=== PATIENT | female | born 1945 | race Caucasian/White ===

== ENCOUNTER → 2020-01-08 09:19 | Outpatient (BNVA) | payer MEDICARE, OTHER, SELFPAY | PROVIDERS: Family Provider Family Medicine; PCP Family Medicine; Referring Provider Dermatology; Visit Provider Dermatology | DX: B35.3 Tinea pedis (principal); D48.9 Neoplasm of uncertain behavior, unspecified; Z85.820 Personal history of malignant melanoma of skin; L57.0 Actinic keratosis; Z12.83 Encounter for screening for malignant neoplasm of skin; D18.01 Hemangioma of skin and subcutaneous tissue; B35.1 Tinea unguium | CPT/HCPCS: 11102; 17000; 17003; 88304; 88305; 99203 ==

== ENCOUNTER 2020-02-09 10:09 | Emergency (ER) | payer MEDICARE, OTHER, SELFPAY ==
[2020-02-09 10:22] VITALS: BP 191/86; PULSE 84; RESP 18; TEMP 36.7; O2SAT 100; BMI 40.7
--- NOTE | 2020-02-09 10:38 | W.ED.SOB ---
HPI - SOB/Dyspnea General: Chief Complaint: Shortness of Breath/Dyspnea Stated Complaint: LOW BLOOD OXYGEN Time Seen by Provider: 02/09/20 10:32 History of Present Illness: HPI Narrative: 74-year-old female patient presents to the emergency department due to, low O2 sat . She reports use of albuterol this morning with O2 saturation of 77%. She reports felt fine. Normal use of albuterol on daily basis. She has history of asthma with congestion in the mornings. She denies feeling bad, denies fever chills. She reports called her primary care physician who advised her to come to the ED for evaluation. She drove herself to the hospital. Her O2 sat on arrival was 100% on room air. Pertinent past history: asthma Context: other Timing: improved Associated symptoms: Reports chest congestion (Normal experience per patient); Deny chest pain, diaphoresis, dizziness, fever(s), lightheadedness, myalgias or nausea Review of Systems General: Reports: 10 or more systems reviewed and unremarkable except in HPI and below Const: Denies: fever(s) or diaphoresis Eyes: Denies: blurry vision or eye redness ENMT: Denies: throat pain, dental pain or disequilibrium Card: Denies: chest pain or lightheadedness Resp: Reports: chest congestion (Normal experience per patient) GI: Denies: nausea : Denies: difficulty voiding or dysuria Musc: Denies: back pain Skin/Breast: Denies: rash or pruritus Neuro: Denies: dizziness James/Lymph: Denies: easy bruising PFS ED PFSH: Medical History (Updated 02/09/20 @ 10:44 by OVI Jain) History of malignant melanoma Social History Smoking and tobacco status: never smoked Alcohol intake: current Alcohol intake frequency: holidays/special occasions only History of recent travel: No Physical Exam Const: COMMON NORMALS: no acute distress, patient oriented x3, healthy appearing, alert and well nourished GENERAL APPEARANCE: cooperative, comfortable, well kempt and well hydrated NUTRITIONAL APPEARANCE: obese ORIENTATION/CONSCIOUSNESS: Yes awake, Yes oriented to person, Yes oriented to place and Yes oriented to time HENMT: COMMON NORMALS: normocephalic, Normal external nose present and moist oral mucous membranes HEAD & SCALP: normocephalic NOSE: Normal external nose present Eye: COMMON NORMALS: Equal, round and reactive pupils present and EOMs intact bilaterally GENERAL EYE: appearance normal, both eyes and all related structures PUPIL: Yes Equal, round and reactive pupils present Neck/C-Spine: COMMON NORMALS: full ROM and no lymphadenopathy GENERAL: Yes normal visual inspection and Yes trachea midline CERVICAL SPINE: Yes cervical ROM normal Lymph: LYMPHATIC: no lymphadenopathy noted Chest: COMMONS NORMALS: normal inspection of the chest Resp: COMMON NORMALS: normal respiratory effort, No retractions, No use of accessory muscles and clear to auscultation bilaterally EFFORT & INSPECTION: Yes able to speak in complete sentences AUSCULTATION: clear to auscultation bilaterally Cardio: COMMON NORMALS: regular rhythm, S1 normal heart sound present, S2 normal heart sound present and Peripheral pulses 2+ throughout RHYTHM: regular rhythm HEART SOUNDS: S1 normal heart sound present and S2 normal heart sound present PERIPHERAL PULSES: Peripheral pulses 2+ throughout GI: COMMON NORMALS: Normal to inspection, nondistended, normoactive bowel sounds present, Soft to palpation and non-tender INSPECTION: Yes normal to inspection PALPATION: Yes Soft to palpation : COMMON NORMALS: Yes no CVA tenderness BLADDER/KIDNEY EXAM: Yes no CVA tenderness Back/Pelvis: COMMON NORMALS: no CVA tenderness and thoracic and lumbar spine normal to inspection Extremity: COMMON NORMALS: normal to inspection and capillary refill normal Neuro: COMMON NORMALS: patient oriented x3 and no focal motor deficits SENSORIUM/ORIENTATION: Yes alert, Yes oriented to person, Yes oriented to place and Yes oriented to time Psych: COMMON NORMALS: mental status grossly normal, Normal thought process present and cooperative APPEARANCE: Yes well kempt ACTIVITY/MOTOR BEHAVIOR: Yes appropriate eye contact THOUGHT PROCESS: Normal thought process present Skin: COMMON NORMALS: no rashes or lesions noted and turgor normal GENERAL SKIN EXAM: no rashes or lesions noted, elasticity normal and turgor normal TRAUMA: no lacerations or abrasions NAILS: normal Course ED course: 74-year-old female patient presented to the emergency department today with low O2 saturation reading at home after utilizing albuterol. She reports daily use of albuterol, denied increased shortness of breath, congestion or symptoms that were concerning. She was able to drive herself to the emergency department. Oxygen saturation remained 100% here in the ED, initial reading was 100% on room air. She was requesting to go home. She reports will return to the emergency department if she develops new symptoms or if O2 saturation remains abnormal at home. Vital Signs: Vital signs: Vital Signs Temperature 98.1 F 02/09/20 10:49 Pulse Rate 87 02/09/20 10:49 Respiratory Rate 18 02/09/20 10:49 Blood Pressure 194/78 02/09/20 10:49 Pulse Oximetry 97 02/09/20 10:49 Discharge Plan Discharge Patient Disposition: Home Clinical Impression: Asthma Qualifiers: Asthma severity: mild Asthma persistence: unspecified Asthma complication type: unspecified Qualified Code(s): J45.909 - Unspecified asthma, uncomplicated Hypertension Qualifiers: Hypertension type: unspecified Qualified Code(s): I10 - Essential (primary) hypertension Condition: Stable Prescriptions: No Action mupirocin 2 % ointment 1 applic TOPICAL BID Qty: 22 RF: 0 ketoconazole 2 % cream 1 applic TOPICAL BID Qty: 60 RF: 1 Discharge Orders: Discharge Order (Routine); Ordered 02/09/20 Ordered By: Myriam Florez Referrals: Sandra Workman DO [Primary Care Provider] - Discharge Diet: Cardiac Discharge Activity: Resume usual activity Patient Instructions: Asthma (ED), Hypertension (ED) Activity Restrictions/Additional Instructions: Continue to monitor oxygen saturation, if low oxygenation occurs and stays low, return to the emergency department. Continue to follow-up with Dr. Workman. Monitor blood pressure his blood pressure was found to be elevated during exam. Low-salt diet as this will help lower blood pressure. Continue albuterol as directed by her primary care physician for asthma symptoms. Return to the emergency department if you develop chest pain, shortness of breath that worsens, low oxygen saturation or other concerning symptoms. Discharge Date/Time: 02/09/20 10:51 Coding Level of Care Code ED Extracting Machine Operator for Cliff Pugh Exam Comprehensive
[2020-02-09 10:49] VITALS: BP 194/78; PULSE 87; RESP 18; TEMP 36.7; O2SAT 97
== END 2020-02-09 10:51 | disposition home or self-care (01) ==
PROVIDERS: Emergency Provider Nurse Practitioner Family; Family Provider Family Medicine; PCP Family Medicine
DX: J45.909 Unspecified asthma, uncomplicated (principal); I10 Essential (primary) hypertension; Z85.820 Personal history of malignant melanoma of skin
CPT/HCPCS: 12345; 99281

== ENCOUNTER 2022-02-08 15:38 | Inpatient (IN) | payer MEDICARE, OTHER, SELFPAY ==
[2022-02-08] VITALS (19 sets, daily range): BP systolic 109–196; BP diastolic 53–83; PULSE 75–96; RESP 15–21; TEMP 36.5–37; O2SAT 94–100; BMI 40.3
--- NOTE | 2022-02-08 15:58 | XRR_ITS ---
PROCEDURE INFORMATION: Exam: XR Chest Exam date and time: 02/08/2022 4:13 PM Age: 76 years old Clinical indication: Dyspnea; Prior surgery; Surgery type: Mastectomy; Patient HX: HX of breast melanoma TECHNIQUE: Imaging protocol: Radiologic exam of the chest. Views: 1 view. COMPARISON: CR XR chest 2V* [id number] 06/25/2017 3:47 PM FINDINGS: Lungs: Lungs are clear. Pleural spaces: There is no pleural effusion or pneumothorax. Heart/Mediastinum: There is mild enlargement of the cardiac silhouette. Bones/joints: Bones are unremarkable. XR/XR chest 1V portable [id number] IMPRESSION: No acute findings.
--- NOTE | 2022-02-08 15:59 | ECG_ITS ---
[facility] Test Date: 2022-02-08 Pat Name: Celine Cabrera Department: Room: Gender: Female Visual Display Manager: : 1945 Requested By: Daily Lucia Order Number: [id number] Shima MD: Kanwal Smith M.D. Measurements Intervals [place] Rate: 87 P: 40 MS: 162 QRS: 10 QRSD: 85 T: 42 QT: 352 QTc: 425 Interpretive Statements SINUS RHYTHM LOW QRS VOLTAGE IN PRECORDIAL LEADS [QRS DEFLECTION < 1.0 mV IN CHEST LEADS] NONSPECIFIC ST & T-WAVE ABNORMALITY INTERPRETATION BASED ON A DEFAULT AGE OF 40 YEARS Compared to ECG 01/10/2018 10:06:08 Low QRS voltage now present T-wave abnormality now present Left ventricular hypertrophy no longer present Electronically Signed On 02-08-2022 20:55:11 CDT by Kanwal Smith M.D. [id number] f
--- NOTE | 2022-02-08 16:15 | ED_ITS ---
HPI - General Adult General: Chief complaint: Chest Pain Stated complaint: Sent by Catracho Mcnally Pain/ SOB Time Seen by Provider: 02/08/22 15:58 History of Present Illness: Patient is a 76-year-old female with a history of asthma, remote history of breast cancer melanoma who presents the emergency room for evaluation of chest pressure and exertional dyspnea worsening the last 2-mon . Patient stated that she recently establish care with Dr. Mcnally and was diagnosed with cardiac murmur. Patient was told to come to the emergency room for further evaluation. Per patient, over the last 2-month, she has had increasing shortness of breath and lightheadedness upon exertion. Now patient has chest pressure even at rest. Patient denies any nausea/vomiting, diaphoresis, pleuritic chest pain, chest pain with radiation to the back abdomen or neck. Patient denies any abdominal pain, diarrhea, melena/hematochezia. Patient denies any complaints. Onset:2 month ago Duration:2 months Location:home Severity:moderate Associated symptoms: Reports chest pain and dyspnea; Deny nausea, rash, palpitations or vomiting Review of Systems Const: Denies: fever(s) or chills Eyes: Denies: change in vision ENMT: Denies: mouth pain Card: Reports: chest pain and dyspnea on exertion; Denies: palpitations Resp: Reports: dyspnea; Denies: non-productive cough GI: Denies: abdominal pain, nausea, vomiting or diarrhea : Denies: dysuria Musc: Denies: extremity pain Skin/Breast: Denies: rash or new lesions Neuro: Denies: weakness in extremities Psych: Reports: other (Normal mood) James/Lymph: Denies: easy bruising PFSH ED PFSH: Medical History Breast cancer History of malignant melanoma No pertinent past medical history Surgical History History of appendectomy History of tonsillectomy Family History Grandmother Cancer Paternal--breast Mother Hypertension Denies family history of Diabetes CAD (coronary artery disease) Clotting disorder Dementia Hyperlipidemia Chronic kidney disease (CKD) Anesthesia complication Bleeding disorder Lung disease Stroke Social History Smoking and tobacco status: never smoked Alcohol intake: current Alcohol intake frequency: holidays/special occasions only Caregiver/support person: No Lives independently: Yes Household members: spouse Marital status: History of recent travel: No Physical Exam Const: COMMON NORMALS: alert HENMT: COMMON NORMALS: atraumatic HEAD & SCALP: atraumatic MOUTH: moist mucous membranes not abnormal Eye: COMMON NORMALS: EOMs intact bilaterally and conjunctivae normal CONJUNCTIVA: Yes conjunctivae normal Neck/C-Spine: COMMON NORMALS: full ROM and supple Resp: COMMON NORMALS: normal respiratory effort and clear to auscultation b ilaterally AUSCULTATION: clear to auscultation bilaterally Cardio: COMMON NORMALS: regular rate RATE: regular rate OTHER: 2+ radial pulse sb/l +2/6 systolic murmur GI: COMMON NORMALS: Soft to palpation and non-tender PALPATION: Yes Soft to palpation OTHER: No focal TTP. NO guarding rebound, guarding, rigidity. No CVA tenderness to percussion. Neg Ricci/Neg McBurney's point tenderness, no suprabupic tenderness to palpation. Rectal exam supervised by Jaclyn: Hemoccult positive brown stool no melena Extremity: COMMON NORMALS: full ROM OTHER: 1+ nonpitting edema b/l Neuro: SENSORIUM/ORIENTATION: Yes alert MOTOR EXAM: No Abnormal motor strength present and Other motor observations present (no focal motor deficits) Psych: COMMON NORMALS: speech normal SPEECH: Yes normal speech MOOD & AFFECT: Yes euthymic mood Course Vital Signs: Vital signs: Vital Signs Temperature 98.6 F 02/08/22 19:41 Pulse Rate 80 02/08/22 19:41 Respiratory Rate 21 H 02/08/22 19:41 Blood Pressure 171/74 02/08/22 19:41 Pulse Oximetry 100 02/08/22 19:41 Oxygen Delivery Me thod 02/08/22 19:[address] [facility] - General Adult Medical Decision Making Patient is a 76-year-old female with a history of asthma, remote history of breast cancer melanoma who presents the emergency room for evaluation of chest pressure and exertional dyspnea worsening the last 2-month. On physical exam, patient appears to have pale conjunctive a. No other focal findings on physical exam. Patient did have hemoglobin 6.1 today. Patient received intravenous water. Initial troponin of 50 with a delta of +9. Given delta of greater than 5 as well as need for transfusion, discussed with Dr. Chen who will admit patient for further observation. Patient tells me that she has been having intermittent midepigastric Param pain for the last few month. Patient received IV Protonix in the ER. Disposition: admission Lab Data : 02/08/22 16:24 02/08/22 16:24 Radiology Impressions Chest X-Ray 02/08/22 15:58 IMPRESSION: No acute findings. Laboratory Results WBC 9.8 10^3/uL (4.0-10.0) 02/08/22 16:24 RBC 3.37 10^6/uL (4.1-5.3) L 02/08/22 16:24 Hgb 6.1 g/dL (11.5-15.3) L* 02/08/22 16:24 Hct 22.4 % (37.0-47.0) L 02/08/22 16:24 MCV 66.5 fl (81-99) L 02/08/22 16:24 MCH 18.1 pg (28.0-34.0) L 02/08/22 16:24 MCHC 27.2 g/dL (30.0-36.0) L 02/08/22 16:24 RDW 17.6 % (12.1-15.1) H 02/08/22 16:24 Plt Count 293 10^3/cmm (130-400) 02/08/22 16:24 MPV 11.9 fL (7.4-10.4) H 02/08/22 16:24 Neut % (Auto) 63.3 % 02/08/22 16:24 Lymph % (Auto) 21.3 % 02/08/22 16:24 [place] % (Auto) 10.3 % 02/08/22 16:24 Eos % (Auto) 3.3 % 02/08/22 16:24 Baso % (Auto) 1.3 % 02/08/22 16:24 Neut # (Auto) 6.20 10^3/uL (1.8-7.7) 02/08/22 16:24 Lymph # (Auto) 2.1 10^3/uL (0.8-4.8) 02/08/22 16:24 [place] # (Auto) 1.0 10^3/uL (0.2-0.9) H 02/08/22 16:24 Eos # (Auto) 0.3 10^3/uL (0.0-0.8) 02/08/22 16:24 Baso # (Auto) 0.1 10^3/uL (0.0-0.1) 02/08/22 16:24 Nucleated RBC % (auto) 0.2 % 02/08/22 16:24 Nucleated RBCs # 0.0 /100WBC 02/08/22 16:24 Sodium 138 mmol/L (136-145) 02/08/22 16:24 Potassium 4.0 mmol/L (3.5-5.1) 02/08/22 16:24 Chloride 104 mmol/L (98-107) 02/08/22 16:24 Carbon Dioxide 24 mmol/L (22-29) 02/08/22 16:24 Anion Gap 14.0 (5-19) 02/08/22 16:24 BUN 13 mg/dL (8-23) 02/08/22 16:24 Creatinine 0.7 mg/dL (0.5-0.9) 02/08/22 16:24 GFR Calculation Not Reportable 02/08/22 16:24 Glucose 109 mg/dL (65-115) 02/08/22 16:24 Calculated Osmolality 287 mOsm/kg (285-295) 02/08/22 16:24 Calcium 8.9 mg/dL (8.5-10.5) 02/08/22 16:24 Troponin T Baseline 50 ng/L (0-10) H 02/08/22 16:24 Troponin T 120 Minute 59.01 ng/L (0-10) H 02/08/22 18:35 Delta Troponin T 9.01 ABS# (0-10) 02/08/22 18:35 NT-Pro-B Natriuret Pep 342 pg/mL (0-450) 02/08/22 16:24 TSH 2.56 uIU/mL (0.27-4.20) 02/08/22 16:24 Free T4 1.18 ng/dL (0.82-1.77) 02/08/22 16:24 Blood Type A Positive 02/08/22 17:34 Rho(D) Type Positive 02/08/22 17:34 Antibody Screen Negative 02/08/22 17:34 Crossmatch See Detail 02/08/22 17:34 Imaging Data Other Imaging: Radiologist's impression: [facility] [address] [place] [address] XRay Report Signed Patient: Celine Cabrera Unit #: [id number] : 1945 Age/Sex: 76 / F ADM Date: 02/08/22 Loc: ER Room/Bed: Attending Dr: Ordering Provider/Ordering MD: Daily Lucia MD Date of Service: 02/08/22 Procedure(s): XR chest 1V portable [id number] Accession Number(s): [id number] Report Number: [id number] PROCEDURE INFORMATION: Exam: XR Chest Exam date and time: 02/08/2022 4:13 PM Age: 76 years old Clinical indication: Dyspnea; Prior surgery; Surgery type: Mastectomy; Patient HX: HX of breast melanoma TECHNIQUE: Imaging protocol: Radiologic exam of the chest. Views: 1 view. COMPARISON: CR XR chest 2V* [id number] 06/25/2017 3:47 PM FINDINGS: Lungs: Lungs are clear. Pleural spaces: There is no pleural effusion or pneumothorax. Heart/Mediastinum: There is mild enlargement of the cardiac silhouette. Bones/joints: Bones are unremarkable. XR/XR chest 1V portable [id number] IMPRESSION: No acute findings. ? Dictated By: Frank Mcgee MD Signed By: Frank Mcgee MD Signed Date/Time: 02/08/221714 DD/ 1613 Discharge Plan Discharge Patient Disposition: Admitted As Inpatient Clinical Impression: Chest pain, Acute dyspnea, Anemia Condition: Stable Coding Level of Care Code ED Microbiology Supervisor for Chg Fwd Exam Comprehensive
[2022-02-08 16:35] LABS: Basophils # 0.1 10^3/uL (0.0-0.1); Basophils % 1.3 %; Eosinophils # 0.3 10^3/uL (0.0-0.8); Eosinophils % 3.3 %; Hematocrit 22.4 % (37.0-47.0); Lymphocytes # 2.1 10^3/uL (0.8-4.8); Lymphocytes % 21.3 %; Mean Corpuscular HGB Conc 27.2 g/dL (30.0-36.0); Mean Corpuscular Hemoglobin 18.1 pg (28.0-34.0); Mean Corpuscular Volume 66.5 fl (81-99); Mean Platelet Volume 11.9 fL (7.4-10.4); Monocytes % 10.3 %; Neutrophils % 63.3 %; Nucleated Red Blood Cells % 0.2 %; Platelet Count 293 10^3/cmm (130-400); Red Blood Count 3.37 10^6/uL (4.1-5.3); Red Cell Distribution Width 17.6 % (12.1-15.1); White Blood Count 9.8 10^3/uL (4.0-10.0)
[2022-02-08 16:50] LABS: Hemoglobin 6.1 g/dL (11.5-15.3)
[2022-02-08 17:08] LABS: Troponin(5th) Baseline 50 ng/L (0-10)
[2022-02-08 17:19] LABS: Blood Urea Nitrogen 13 mg/dL (8-23); Calcium 8.9 mg/dL (8.5-10.5); Carbon Dioxide 24 mmol/L (22-29); Chloride 104 mmol/L (98-107); Glucose 109 mg/dL (65-115); NT Pro B Type Natriuretic Pept 342 pg/mL (0-450); Osmolality Calculated 287 mOsm/kg (285-295); Sodium 138 mmol/L (136-145)
[2022-02-08 17:39] LABS: Free T4 Free Thyroxine 1.18 ng/dL (0.82-1.77); Thyroid Stimulating Hormone 2.56 uIU/mL (0.27-4.20)
[2022-02-08] MEDS: sodium chloride 0.9% 100 mL Bag 50 ML IV (19:00)
[2022-02-08 19:06] LABS: Troponin 5 2HR 59.01 ng/L (0-10)
[2022-02-08 19:09] LABS: Troponin 5 2HR Delta 9.01 ABS# (0-10)
--- NOTE | 2022-02-08 19:15 | PC.NURSE ---
Prbc verified with Marialuisa Palma RN on unit [id number]
--- NOTE | 2022-02-08 19:17 | CTR_ITS ---
PROCEDURE INFORMATION: Exam: CT Abdomen And Pelvis With Contrast Exam date and time: 02/08/2022 9:02 PM Age: 76 years old Clinical indication: Abnormal findings; Abnormal lab test; Other: Low rbc; Prior surgery; Surgery date: 6+ months; Surgery type: Hyst, appx, tubal; Additional info: Anemia requiring transfusion TECHNIQUE: Imaging protocol: Computed tomography of the abdomen and pelvis with contrast. Radiation optimization: All CT scans at this facility use at least one of these dose optimization techniques: automated exposure control; mA and/or kV adjustment per patient size (includes targeted exams where dose is matched to clinical indication); or iterative reconstruction. Contrast material: OMNIPAQUE 350; Contrast volume: 80 ml; Contrast route: INTRAVENOUS (IV); COMPARISON: CR XR chest 1V portable [id number] 02/08/2022 4:13 PM RADIATION DOSE METRICS: Total DLP (mGy-cm): 1116.33 FINDINGS: Lungs: There is a noncalcified pulmonary nodule in the right middle lobe visible on series 3, image 5 measuring 6 mm. Liver: The liver is normal. Gallbladder and bile ducts: The gallbladder is distended and contains multiple large calcified stones. No pericholecystic edema. No definite gallbladder wall thickening. No biliary dilation. Pancreas: The pancreas is unremarkable. Spleen: The spleen is unremarkable. Adrenal glands: 11 mm left adrenal nodule of intermediate density. Kidneys and ureters: Simple left parapelvic renal cysts. There is no hydronephrosis or stones. The right kidney and ureter are unremarkable. Stomach and bowel: The stomach is decompressed, preventing meaningful evaluation of wall thickness. The small bowel is nondilated. The colon is unremarkable. Appendix: The appendix is not visible. Intraperitoneal space: There is no intraperitoneal free air. Vasculature: There is moderate aortic atherosclerotic disease. The portal, splenic and superior mesenteric veins are patent. Lymph nodes: There is no lymphadenopathy in the retroperitoneum, mesentery, pelvis or inguinal regions. Urinary bladder: The urinary bladder is decompressed, preventing meaningful evaluation of wall thickness. Reproductive: The uterus is absent. There is no adnexal mass or large cyst. Bones/joints: There is mild degenerative disease in the lumbar spine. The pelvis and hips are unremarkable. Soft tissues: The abdominal wall is intact. CT/CT abdomen pelvis w con* [id number] IMPRESSION: 1. No acute findings. 2. Cholelithiasis without definitive evidence of cholecystitis. 3. 6 mm right middle lobe pulmonary nodule.For patients at low risk (minimal or absent history of smoking and of other known risk factors), recommend CT Chest at 6-12 months, then consider CT Chest at 18-24 months. For patients at high risk (history of smoking or of other known risk factors), recommend CT Chest at 6-12 months, then CT Chest at 18-24 months. (Reference: Kurt) 4. Left adrenal nodule. Consider 12 month follow-up adrenal CT. (Reference: Randall) 5. Incidental findings above. COMMENTS: Consistent with the [employer] [employer]'s Incidental Findings Committee white paper (J Am Amie Radiol 2018): Any incidental renal lesion less than 1 cm or classified as too small to characterize, or any incidental cystic renal lesion characterized as simple-appearing, is likely benign. No follow-up imaging is recommended for these lesions per consensus recommendations based on imaging criteria. REFERENCES: 1. Kurt Bledsoe, et al. Guidelines for Management of Incidental Pulmonary Nodules Detected on CT Images: From the Fleischner Society 2017. Radiology. 2017;284(1):228-243. 2. Randall ROSE, et al. Management of Incidental Adrenal Masses: A White Paper of the ACR Incidental Findings Committee. J Am Amie Radiol. 2017;14(8):2908-5647.
[2022-02-08] MEDS: iohexol 350 mg/mL 100 mL Btl IV (21:03)
--- NOTE | 2022-02-08 21:36 | PC.NURSE ---
@ 2123 VERIFIED 2ND UNIT WITH CHARGE NURSE, LAURA GUNDERSON. UNIT# [id number]
--- NOTE | 2022-02-08 22:14 | P.HP_ITS ---
Providers/Chief Complaint Admitting Physician: Khadijah Chen MD Primary Care Provider: Shadi Mcnally DO Chief Complaint: Sent by Uli, Chest Pain/ SOB History of Present Illness Celine Cabrera is a 76 year old female with remote history of breast cancer and melanoma presenting to the emergency room today with several weeks of increasing generalized weakness and fatigue. She also describes feeling short of breath with minimal exertion. 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 However when symptoms did not improve she visited with her PCP and was directed to come into the ER. She describes dyspnea, felt as severe asthma and inability to catch her breath with minimal exertion. Also describes a nonspecific palpitation like feeling in the middle of her chest with exertion which resolves with rest. Denies any pain per se. Labs today noted significant anemia with hemoglobin down at 6.1. Patient reports longstanding history of ibuprofen intake, typically takes 400 mg either once daily or twice daily for arthritis pain. She used to be on Pepcid due to a history of gastritis, and has had an endoscopy in the past, however has not been taking Pepcid in recent weeks. She describes pain with food ingestion therefore has had a poor appetite and is not eating her usual amount. She state s that she has been consciously trying to reduce weight and does intermittent fasting between the hours of 6 PM and 9 AM. Is not currently on any special diet to lose weight. She estimates she is lost about 20 pounds in the last 2 to 3 months. No recent change in her bowel movements. No dysphagia. FOBT was positive in the ER. EKG today did not show any acute ST-T wave changes. Baseline troponin was elevated in the 50s, 2-hour delta is not significant at 9. Pending 6-hour delta at this time. She is currently receiving 2 units of packed red blood cell transfusion. Review of Systems General: Reports: 10 or more systems reviewed and unremarkable except in HPI and below Const: Denies: fever(s), chills or body aches Eyes: Denies: change in vision, blurry vision or photophobia ENMT: Reports: hoarseness; Denies: throat pain, enlarged tonsils, odynophagia or nasal congestion Card: Denies: chest pain, palpitations, irregular heart rhythm, edema, swelling of feet/ankles, lightheadedness, pre-syncope, dyspnea on exertion or orthopnea Resp: Denies: dyspnea, productive cough, non-productive cough, wheezing, stridor, pain on inspiration, change in phlegm color, hemoptysis or chest congestion GI: Denies: abdominal pain, nausea, vomiting, hematemesis, coffee ground emesis, dysphagia, heartburn, diarrhea, constipation, GI cramping, change in stool character, hematochezia or melena : Denies: flank pain, difficulty voiding, dysuria, urinary frequency, urinary urgency, urinary hesitancy or hematuria Musc: Denies: neck pain, back pain, extremity pain, joint swelling, joint warmth or deformity Neuro: Denies: headache(s), numbness in extremities, weakness in extremities, sensory changes, difficulty walking, frequent falls, dizziness, vertigo, behavioral changes, Slurred speech present or seizure-like activity Psych: Denies: anxiety, depression, suicidal ideation or homicidal ideation Endo: Denies: polyuria, polydipsia, tired all the time, cold intolerance or hot flashes James/Lymph: Denies: easy bruising or easy bleeding Medications/Allergies Home Medications Medication Instructions Recorded Confirmed Last Taken Type fexofenadine 60 mg tablet 60 mg PO DAILY 02/01/22 02/08/22 02/07/22 History levalbuterol tartrate 45 2 inh inhalation Q6H #15 grams 02/01/22 02/08/22 02/08/22 Rx mcg/actuation aerosol inhaler triprolidine 1.25 mg-phenyleph 5 20 ml PO Q4H 02/01/22 02/08/22 02/07/22 History mg-DM 10 mg-acetamin 325 mg/10mL oral (Mucinex Night[place] Cold-Flu Clr) aspirin 81 mg tablet,delayed 81 mg PO DAILY 02/08/22 02/08/22 02/07/22 History release cltmhbnmh-RNM-vuxywciuwqbng tablet 1 tab PO Q6H 02/08/22 02/08/22 Unknown History ibuprofen 200 mg tablet (Advil) 200 mg PO Q6H PRN Pain 02/08/22 02/08/22 02/07/22 History Allergies Allergy/AdvReac Type Severity Reaction Status Date / Time codeine Allergy Vomit Verified 02/08/22 16:52 penicillin G Allergy Rash Verified 02/08/22 16:52 PFSH Acute PFSH: Medical History (Updated 02/09/22 @ 04:47 by Khadijah Chen MD) Breast cancer Gastritis History of malignant melanoma No pertinent past medical history Surgical History (Updated 02/09/22 @ 04:47 by Khadijah Chen MD) H/O mastectomy History of appendectomy History of hysterectomy History of tonsillectomy Family History Grandmother Cancer Paternal--breast Mother Hypertension Denies family history of Diabetes CAD (coronary artery disease) Clotting disorder Dementia Hyperlipidemia Chronic kidney disease (CKD) Anesthesia complication Bleeding disorder Lung disease Stroke Social History Smoking and tobacco status: never smoked Alcohol intake: current Alcohol intake frequency: holidays/special occasions only Caregiver/support person: No Lives independently: Yes Household members: spouse Marital status: History of recent travel: No Vitals/I&O/Wt Last Vital Signs Temp 98.6 F 02/08/22 21:41 Pulse 79 02/08/22 21:41 Resp 20 H 02/08/22 21:41 BP 180/64 02/08/22 21:41 Pulse Ox 100 02/08/22 21:41 O2 Del Method 02/08/22 19:00 02/08/22 02/08/22 02/08/22 06:59 14:59 22:59 Intake Total 350 / 350 Balance 350 / 350 Weight last 48 hrs Weight 113.398 kg Physical Exam Narrative: General: No acute distress, AO x3 HEENT: PERRLA, pupils bilaterally equal and reactive, pallors not present Chest: Normal vesicular breath sounds, no added sounds, equal good air entry bilaterally CVS: S1-S2 regular, no murmurs, no tachycardia, no gallops, no rubs Abdomen: Soft, nontender, no organomegaly, bowel sounds present Neuro: No focal deficits, no facial deformity, AO x3, power 5/5 in all limbs Data : 02/09/22 03:06 02/08/22 16:24 A&P Assessment and plan (1) Anemia: Patient noted with new anemia, hemoglobin as low as 6.1. FOBT positive in the ER. Additionally with symptoms of pain after eating, poor appetite, weight loss, suspect that patient may have gastric versus duodenal ulceration with bleeding that could be leading to anemia. Check iron panel, ferritin, transferrin saturation, folate B12, LFT, LDH for anemia work-up. Currently receiving 2 units of packed red blood cell transfusion. We will repeat hemoglobin after transfusion. Transfusion threshold of 7. (2) GI bleed: FOBT positive. With history, concern for bleeding gastric versus duodenal ulceration. Protonix 40 mg IV every 12 hours. N.p.o. for now. Will contact Dr. Dolan in the morning to evaluate for upper and lower GI endoscopy. Patient has never had a colonoscopy in the past. She has done FIT testing 10 years ago which was negative. She has had an endoscopy in the past several years ago which revealed gastritis. No bleeding was encountered at the time. (3) Chest pain: Likely related to severe anemia and related demand ischemia. Additionally with troponin leak noted today suspect that this is a type II AR from demand supply mismatch. Currently troponins elevated but delta not significant at 2 hours, low suspicion for acute coronary syndrome. Check troponin series at 6 hours. Check echocardiogram for any regional wall motion abnormalities, estimates systolic and diastolic function. (4) Dyspnea on exertion: Likely related to severe anemia. (5) Elevated troponin: As above Attestations Medical Necessity Statement*: Anticipate greater than 2 midnight admission for management of symptomatic anemia, GI bleed, GI endoscopy Coding Level of Care Code Acute Civil Laboratory Technician for g Fwd Diagnoses Anemia D64.9 GI bleed K92.2 Chest pain R07.9 Dyspnea on exertion R06.09 Elevated troponin R77.8
--- NOTE | 2022-02-08 22:39 | USCV_ITS ---
Celine Cabrera Age: 76 Gender: F : 1945 Exam Date: 02/08/2022 23:49 Ordering Phys: Khadijah Chen MD Technologist: LORENA Exam Location: [facility] [place] Indication: Elevated troponin, anemia. BP: 180 / 64 HR: 88 Rhythm: Sinus Technical Quality: Adequate MEASUREMENTS (Male / Female) Normal Values 2D ECHO LV Diastolic Diameter PLAX 3.8 cm 4.2 - 5.9 / 3.9 - 5.3 cm LV Systolic Diameter PLAX 2.6 cm IVS Diastolic Thickness 1.6 cm 0.6 - 1.0 / 0.6 - 0.9 cm IVS Systolic Thickness 1.9 cm LVPW Diastolic Thickness 1.4 cm 0.6 - 1.0 / 0.6 - 0.9 cm LVPW Systolic Thickness 1.5 cm LVOT Diameter 1.9 cm LV Ejection Fraction 2D Teich 62.2 % LV Ejection Fraction MOD 2C 72.2 % LV Ejection Fraction 2C AL 76.7 % LA Diameter 4.1 cm LA Width 4.6 cm LA Height 6.3 cm RA Width 2.9 cm RA Height 4.6 cm Aorta at Sinotubular Diameter 3.1 cm IVC Diameter 1.6 cm M-MODE Aortic Annulus Diameter 2.9 cm LA Ao Ratio MM 1.4 MV E Point Septal Separation 0.3 cm DOPPLER AV Peak Velocity 208.7 cm/s LVOT Peak Velocity 115.0 cm/s AV Area Cont Eq vti 1.7 cm squared AV Area Cont Eq pk 1.6 cm squared MV Area PHT 3.5 cm squared Mitral E to A Ratio 0.8 MV E' Velocity 64.5 cm/s Mitral E to MV E' Ratio 10.9 Mitral E to LV E' Lateral Ratio 11.7 Mitral E to LV E' Septal Ratio 10.2 TR Peak Velocity 287.7 cm/s TR Peak Gradient 33.1 mmHg TV Peak E Velocity 88.0 cm/s Right Atrial Pressure 10.0 mmHg Pulmonary Artery Systolic Pressu 43.1 mmHg PV Peak Velocity 95.0 cm/s RV Acceleration Time 0.1 s RV Ejection Time 0.3 s RV AcT/ET 0.3 FINDINGS Left Ventricle Normal left ventricular size, systolic function and wall thickness, with no regional wall motion abnormalities. Left ventricular ejection fraction is estimated at 65-70 %. Normal diastolic function. Right Ventricle Normal right ventricular size and systolic function. Right ventricular systolic pressure 43.1 mmHg. Right Atrium Normal right atrial size. Left Atrium Mildly increased left atrial size. Mitral Valve Structurally normal mitral valve. No mitral valve stenosis. No mitral valve regurgitation. Aortic Valve Aortic valve not well visualized. Probably trileaflet aortic valve. No aortic valve stenosis. No aortic valve regurgitation. Tricuspid Valve Structurally normal tricuspid valve. No tricuspid valve stenosis. Trace tricuspid valve regurgitation. Pulmonic Valve Pulmonic valve not well visualized. No pulmonary valve stenosis. Pericardium No pericardial effusion. Aorta Normal size aortic root and proximal ascending aorta. IVC Normal IVC dimension with >50% respiratory change of the inferior vena cava. CONCLUSIONS 1. Normal left ventricular size, systolic function and wall thickness, with no regional wall motion abnormalities. Left ventricular ejection fraction is estimated at 65-70 %. Normal diastolic function. 2. Normal right ventricular size and systolic function. 3. No significant valvular abnormality. 4. No prior similar studies to compare. Katia Cooley MD (Electronically Signed) Final Date: 09 February 2022 13:06 S
[2022-02-08 22:47] LABS: Alanine Aminotransferase 10 U/L (0-33); Albumin Level 3.8 g/dL (3.5-5.2); Alkaline Phosphatase 85 U/L (35-105); Aspartate Amino Transferase 16 U/L (0-32); Ferritin 6 ng/mL (15-150); Globulin 3.2 g/dL (1.3-4.6); Iron 13 ug/dL (37-145); Lactate Dehydrogenase 243 U/L (135-214); Total Bilirubin 0.3 mg/dL (0.15-1.2); Transferrin 368 mg/dL (200-360)
[2022-02-08 23:00] LABS: Folate Level 8.9 ng/mL (4.8-37.3)
[2022-02-08 23:01] LABS: Vitamin B12 481 pg/mL (232-1245)
--- NOTE | 2022-02-08 23:36 | ECG_ITS ---
[facility] Test Date: 2022-02-08 Pat Name: Celine Cabrera Department: Room: 261 Gender: Female Industrial Custodian: : 1945 Requested By: Daily Lucia Order Number: [id number] Shima MD: Katia Cooley M.D. Measurements Intervals [place] Rate: 79 P: 16 CA: 175 QRS: 55 QRSD: 79 T: 38 QT: 373 QTc: 430 Interpretive Statements SINUS RHYTHM LOW QRS VOLTAGE IN PRECORDIAL LEADS [QRS DEFLECTION < 1.0 mV IN CHEST LEADS] Compared to ECG 02/08/2022 15:52:11 T-wave abnormality no longer present Electronically Signed On 02-09-2022 12:53:25 CDT by Katia Cooley M.D. [id number]
[2022-02-09] VITALS (8 sets, daily range): BP systolic 146–178; BP diastolic 52–74; PULSE 66–85; RESP 16–19; TEMP 36.4–36.9; O2SAT 94–98
[2022-02-09] MEDS: pantoprazole 40 mg SDV IVP ×3 (01:19→21:51)
[2022-02-09 03:25] LABS: Basophils # 0.1 10^3/uL (0.0-0.1); Basophils % 1.2 %; Eosinophils # 0.3 10^3/uL (0.0-0.8); Eosinophils % 3.6 %; Hematocrit 27.4 % (37.0-47.0); Lymphocytes % 21.8 %; Mean Platelet Volume 11.1 fL (7.4-10.4); Monocytes % 10.7 %; Neutrophils # 5.77 10^3/uL (1.8-7.7); Neutrophils % 62.5 %; Nucleated Red Blood Cells % 0 %; Platelet Count 249 10^3/cmm (130-400); Red Blood Count 3.85 10^6/uL (4.1-5.3); Red Cell Distribution Width 22.9 % (12.1-15.1); White Blood Count 9.2 10^3/uL (4.0-10.0)
[2022-02-09 03:29] LABS: Mean Corpuscular Volume 71.2 fl (81-99)
[2022-02-09 03:30] LABS: Mean Corpuscular HGB Conc 29.2 g/dL (30.0-36.0); Mean Corpuscular Hemoglobin 20.8 pg (28.0-34.0)
[2022-02-09 03:48] LABS: Troponin 5 6HR 75.93 ng/L (0-10)
[2022-02-09 04:51] LABS: Troponin 5 6HR Delta 25.93 ng/L (0-12)
[2022-02-09 10:12] LABS: Chol HDL Ratio 4.42 mg/dL (0.0-4.40); Cholesterol 159 mg/dL (0-200); HDL Cholesterol 36 mg/dL (60-100); LDL Cholesterol Calculated 106 mg/dL (50-129); Triglycerides 86 mg/dL (0-150); VLDL Cholestrol Calculation 17 mg/dL (0-30)
[2022-02-09 10:31] LABS: Estmated Average Glucose 97
--- NOTE | 2022-02-09 10:44 | PC.CHAP ---
Pastoral Care Encounter/Spiritual Assessment Type of Contact [] Declined mold repair technician visit [] Patient/Family/Request visit [] Outpatient visit [] Follow-up visit [] Physician referral [] Code/Alert [x] Routine visit [] Staff referral [] Actively dying [] Patient sleeping [] Family support [] [] Out of room [] Palliative care [] [x] Receiving care in room [] Pre-surgical visit [] Trauma [] Long length of stay [] ICU visit [] Other: Relational/Emotional Strength [x] Patient feels connected with others/family/visitors/staff [] Distress [] Loneliness/isolation [] Abandonment Spirituality of Patient [x] Person of Louise [] Attends Baptism of their Louise [x] Believes in Prayer [] Reads Bible or Hinduism materials [] There are Spiritual issues to be addressed Cafeteria Clerk Interventions [x] Prayer [x] Active listening [x] Non-anxious presence [x] Spiritual/emotional support [] Crisis/trauma care [x] Spiritual counseling [] Bereavement support [] Provided bereavement packet [] Provided Bible/devotional materials [] Provided toy/stuffed animal, coloring book to patient or family member [] Provided Communion [] Anointing/[place] [] Salvation [x] Completed spiritual assessment [] Other: Impact on Illness or Injury [] Angry [] Fearful [] Anxious [] Often cries [] Exhaustion [] Unable to work [] Unable to attend zoroastrianism [] Unable to walk/stand [] Unable to read [] Unable to drive [] Unable to eat/drink [] Unable to sleep [] Unable to be with family [] Patient intubated [] Other: Summary + 1 waiting on doctors perort will go home at some point Time spent with patient 10 mins
[2022-02-09] MEDS: acetaminophen 325 mg Tablet 650 MG PO (10:45)
[2022-02-09] MEDS: sodium chloride 0.9% 1,000 ML 50 ML IV (11:02)
[2022-02-09] MEDS: iron sucrose 200 MG in sodium chloride 0.9% (100 ml) 100 ML 220 MG IV (11:03)
--- NOTE | 2022-02-09 13:12 | PM.PN ---
Subjective Subjective: Admit overnight. H&P and labs appreciated. On examination seen with family at bedside. States he is feeling better. Denies any further chest pain or difficulty in breathing currently. Saturating well on room air. States she has been having symptoms of chest heaviness, pressure and difficulty in breathing on ambulation for last couple of weeks. Denies of having any nausea or vomiting currently. Received 2 unit of blood transfusion overnight. Hemoglobin up to 8. Vitals/I&O/Wt Last Vital Signs Temp 98.5 F 02/09/22 11:41 Pulse 71 02/09/22 11:41 Resp 16 02/09/22 11:41 BP 152/56 02/09/22 11:41 Pulse Ox 97 02/09/22 11:41 O2 Del Method 02/09/22 11:41 02/08/22 02/09/22 02/09/22 22:59 06:59 14:59 Intake Total 350 / 350 620 / 970 110 / 110 Output Total 200 / 200 500 / 500 Balance 350 / 350 420 / 770 -390 / -390 Weight last 48 hrs Weight 113.398 kg Physical Exam Narrative: General: No acute distress, AO x3, pallor present HEENT: PERRLA, pupils bilaterally equal and reactive Chest: Normal vesicular breath sounds, no added sounds, equal good air entry bilaterally CVS: S1-S2 regular, no murmurs, no tachycardia, no gallops, no rubs Abdomen: Soft, nontender, no organomegaly, bowel sounds present Neuro: No focal deficits, no facial deformity, AO x3, power 5/5 in all limbs Data : 02/09/22 03:06 02/08/22 16:24 A&P Assessment and plan (1) Anemia: FOBT positive. Takes ibuprofen regularly at home. High chances of upper GI bleeding. Received 2 unit of blood transfusion. Severe iron deficiency anemia. Monitor hemoglobin daily for now. Start on IV iron supplementation. Further anemia work-up appreciated. Currently receiving 2 units of packed red blood cell transfusion. We will repeat hemoglobin after transfusion. Transfusion threshold of 7. (2) GI bleed: Dr. Dolan has been consulted from the ER. Plan for EGD and colonoscopy. Start on clear liquid diet. N.p.o. after midnight. Plan tomorrow. Bowel prep as per Dr. Dolan Continue Protonix 40 mg twice daily. (3) Chest pain: Troponins elevated with positive delta. Most likely demand ischemia. Echocardiogram done shows a normal EF of 65 to 70% without regional wall motion abnormality. Normal diastolic function, RVSP of 43 mmHg. Given chest pressure-like symptoms with anemia and positive troponins patient will benefit from ischemic work-up with cardiac stress test once able Is an outpatient. Patient is agreeable. Check A1c, lipid panel. (4) Dyspnea on exertion: Continue to monitor. Oxygen supplementation saturation over 92%. (5) Elevated troponin: As above Attestations Medical Necessity Statement*: Requires further hospitalization for management of acute anemia, possible GI bleed leading to while patient awaits EGD and colonoscopy Time Spent in Patient Care: Greater than 35 minutes Coding Level of Care Code Acute Auto Care Center Manager for [facility] Fwd Diagnoses Anemia D64.9 GI bleed K92.2 Chest pain R07.9 Dyspnea on exertion R06.09 Elevated troponin R77.8
[2022-02-09] MEDS: bisacodyl 5 mg Tablet 10 MG PO (15:21)
[2022-02-09] MEDS: polyethylene glycol 3350 Pkt 17 gm PO (15:21)
--- NOTE | 2022-02-09 16:45 | PM.CONSULT ---
Providers/Reason For Consult Consulting Physician/Specialty*: Internal medicine/endoscopy Reason for Consult*: Acute on chronic blood loss anemia. Requesting Physician: Dr. Rose Attending Physician: Best Rose MD Primary Care Provider: Shadi Mcnally DO History of Present Illness History of Present Illness Celine Cabrera is a 76 year old female who presented to the emergency department with shortness of breath. She was noted to be profoundly anemic and have heme positive stools. She denies hematochezia or black tarry stools. She is admitted to a fairly long history of dyspepsia and early satiety. She says she is losing weight because she cannot really eat very well. She says her stomach feels good infrequently and usually feels bad when it is empty and then when she eats food. She admits to some weight loss, but she is attributed that to her early satiety. She has not felt well since she had COVID last year, and had attributed her symptoms to long COVID. She has never had a colonoscopy. Review of Systems GI: Reports: other (As described above.) Medications/Allergies Home Medications Medication Instructions Recorded Confirmed Last Taken Type fexofenadine 60 mg tablet 60 mg PO DAILY 02/01/22 02/08/22 02/07/22 History levalbuterol tartrate 45 2 inh inhalation Q6H #15 grams 02/01/22 02/08/22 02/08/22 Rx mcg/actuation aerosol inhaler triprolidine 1.25 mg-phenyleph 5 20 ml PO Q4H 02/01/22 02/08/22 02/07/22 History mg-DM 10 mg-acetamin 325 mg/10mL oral (Mucinex Nightshift Cold-Flu Clr) aspirin 81 mg tablet,delayed 81 mg PO DAILY 02/08/22 02/08/22 02/07/22 History release hknioizsu-EVU-mbexdqxoztdxd tablet 1 tab PO Q6H 02/08/22 02/08/22 Unknown History ibuprofen 200 mg tablet (Advil) 200 mg PO Q6H PRN Pain 02/08/22 02/08/22 02/07/22 History Allergies Allergy/AdvReac Type Severity Reaction Status Date / Time codeine Allergy Vomit Verified 02/08/22 16:52 penicillin G Allergy Rash Verified 02/08/22 16:52 Current Medications Generic Name Dose Route Start Last Admin Trade Name Tristonq PRN Reason Stop Dose Admin Acetaminophen 650 mg 02/08/22 22:06 02/09/22 10:45 Acetaminophen 325 Mg Tablet PO 650 mg Q6H PRN Administration Mild/Mod Pain Or Temp >/= 101 Iron Sucrose 200 mg/ Sodium 110 mls @ 220 mls/hr 02/09/22 10:00 02/09/22 12:15 Chloride IV 02/13/22 10:29 Infused Q24H S[facility] Infusion Sodium Chloride 1,000 mls @ 50 mls/hr 02/09/22 10:30 02/09/22 11:02 Sodium Chloride 0.9% IV 50 mls/hr .Q20H SURI Administration Non-Formulary Medication 2 inh 02/08/22 22:39 02/09/22 15:24 Levalbuterol Tartrate INHALATION Not Given Q6H SURI Pantoprazole Sodium 40 mg 02/08/22 22:15 02/09/22 10:45 Pantoprazole 40 Mg Sdv IVP 40 mg Q12H SURI Administration PFSH Acute PFSH: Medical History (Updated 02/09/22 @ 04:47 by Khadijah Chen MD) Breast cancer Gastritis History of malignant melanoma No pertinent past medical history Surgical History (Updated 02/09/22 @ 04:47 by Khadijah Chen MD) H/O mastectomy History of appendectomy History of hysterectomy History of tonsillectomy Family History Grandmother Cancer Paternal--breast Mother Hypertension Denies family history of Diabetes CAD (coronary artery disease) Clotting disorder Dementia Hyperlipidemia Chronic kidney disease (CKD) Anesthesia complication Bleeding disorder Lung disease Stroke Social History Smoking and tobacco status: never smoked Alcohol intake: current Alcohol intake frequency: holidays/special occasions only Caregiver/support person: No Lives independently: Yes Household members: spouse Marital status: History of recent travel: No Vitals/I&O/Wt Last Vital Signs Temp 98.2 F 02/09/22 15:42 Pulse 74 02/09/22 15:42 Resp 16 02/09/22 15:42 BP 155/60 02/09/22 15:42 Pulse Ox 96 02/09/22 15:42 O2 Del Method 10/06/22 15:42 02/09/22 02/09/22 02/09/22 06:59 14:59 22:59 Intake Total 620 / 970 110 / 110 Output Total 200 / 200 500 / 500 Balance 420 / 770 -390 / -390 Weight last 48 hrs Weight 250 lb Physical Exam GI: COMMON NORMALS: Normal to inspection, nondistended, normoactive bowel sounds present, Soft to palpation and non-tender PALPATION: Yes Soft to palpation Data : 02/09/22 03:06 02/08/22 16:24 A&P Assessment and plan (1) GI bleed: Given her current level of symptoms, it is most likely that she is dealing with an upper GI bleed from some peptic issue. In order to be complete, and in the notion that we might not get her back here again, we will go ahead and do a full work-up with a colonoscopy as well. We will plan on an EGD and colonoscopy in the morning. (2) Anemia: Coding Level of Care Code Acute Bobbin Dumper for [facility] Fwd Diagnoses GI bleed K92.2 Anemia D64.9
[2022-02-09] MEDS: polyethylene glycol 3350 Pkt 17 gm 136 GM PO (18:02)
[2022-02-09] MEDS: polyethylene glycol 3350 Pkt 17 gm 102 GM PO (18:09)
[2022-02-10] VITALS (11 sets, daily range): BP systolic 131–163; BP diastolic 56–94; PULSE 71–90; RESP 16–18; TEMP 36.2–37.2; O2SAT 91–100
[2022-02-10 05:13] LABS: Basophils # 0.1 10^3/uL (0.0-0.1); Basophils % 1.3 %; Eosinophils # 0.2 10^3/uL (0.0-0.8); Eosinophils % 2.8 %; Hemoglobin 8.2 g/dL (11.5-15.3); Lymphocytes # 1.6 10^3/uL (0.8-4.8); Lymphocytes % 19.3 %; Mean Corpuscular HGB Conc 28.3 g/dL (30.0-36.0); Mean Corpuscular Hemoglobin 20.7 pg (28.0-34.0); Monocytes # 0.9 10^3/uL (0.2-0.9); Monocytes % 10.8 %; Neutrophils # 5.44 10^3/uL (1.8-7.7); Neutrophils % 65.1 %; Nucleated Red Blood Cells % 0.2 %; Platelet Count 245 10^3/cmm (130-400); Red Blood Count 3.97 10^6/uL (4.1-5.3); Red Cell Distribution Width 23.3 % (12.1-15.1); White Blood Count 8.4 10^3/uL (4.0-10.0)
[2022-02-10 05:34] LABS: Alanine Aminotransferase 7 U/L (0-33); Albumin Level 3.5 g/dL (3.5-5.2); Alkaline Phosphatase 86 U/L (35-105); Aspartate Amino Transferase 20 U/L (0-32); Blood Urea Nitrogen 7 mg/dL (8-23); Calcium 8.7 mg/dL (8.5-10.5); Carbon Dioxide 24 mmol/L (22-29); Chloride 109 mmol/L (98-107); Globulin 2.7 g/dL (1.3-4.6); Glucose 105 mg/dL (65-115); Osmolality Calculated 298 mOsm/kg (285-295); Sodium 145 mmol/L (136-145); Total Bilirubin 0.4 mg/dL (0.15-1.2); Total Protein 6.2 g/dL (6.6-8.7)
--- NOTE | 2022-02-10 07:44 | PC.NURSE ---
Bedside report received from REMY Jansen, at shift change.
[2022-02-10] MEDS: sodium chloride 0.9% 1,000 ML 50 ML IV (09:12)
[2022-02-10] MEDS: amlodipine 10 mg Tablet PO (09:13)
[2022-02-10] MEDS: sodium chloride 0.9% 1,000 ML 30 ML IV (11:44)
--- NOTE | 2022-02-10 11:50 | P.HP_ITS ---
Same Day Surgery H&P Indication for Procedure/HPI DATE OF PROCEDURE: February 10, 2022 CHIEF COMPLAINT/INDICATIONFOR SURGICAL PROCEDURE: Anemia due to GI blood loss PREOP DIAGNOSIS: Blood loss anemia PLANNED PROCEDURE: Operation Date: 02/10/22 12:30 Proposed Procedures p Colonoscopy(Not Applicable) - Luca Dolan MD s EGD(Not Applicable) - Luca Dolan MD Medications/Allergies* Home Medications Medication Instructions Recorded Confirmed Type fexofenadine 60 mg tablet 60 mg PO DAILY 02/01/22 02/08/22 History triprolidine 1.25 mg-phenyleph 5 20 ml PO Q4H 02/01/22 02/08/22 History mg-DM 10 mg-acetamin 325 mg/10mL oral (Mucinex Nightshift Cold-Flu Clr) aspirin 81 mg tablet,delayed 81 mg PO DAILY 02/08/22 02/08/22 History release jykosimyx-ABZ-hnnhcgzckgxkh tablet 1 tab PO Q6H 02/08/22 02/08/22 History ibuprofen 200 mg tablet (Advil) 200 mg PO Q6H PRN Pain 02/08/22 02/08/22 History Allergies/Adverse Reactions Allergy/AdvReac Type Severity Reaction Status Date / Time codeine Allergy Vomit Verified 02/08/22 16:52 penicillin G Allergy Rash Verified 02/08/22 16:52 Current Medications: Generic Name Dose Route Start Last Admin Trade Name Freq PRN Reason Stop Dose Admin Acetaminophen 650 mg 02/08/22 22:06 02/09/22 10:45 Acetaminophen 325 Mg Tablet PO 650 mg Q6H PRN Administration Mild/Mod Pain Or Temp >/= 101 Amlodipine Besylate 10 mg 02/10/22 09:00 02/10/22 09:13 Amlodipine 10 Mg Tablet PO 10 mg DAILY SURI Administration Iron Sucrose 200 mg/ Sodium 110 mls @ 220 mls/hr 02/09/22 10:00 02/09/22 12:15 Chloride IV Infused Q24H SURI Infusion Sodium Chloride 1,000 mls @ 50 mls/hr 02/09/22 10:30 02/10/22 09:12 Sodium Chloride 0.9% IV 50 mls/hr .Q20H SURI Administration Sodium Chloride 1,000 mls @ 30 mls/hr 02/10/22 11:30 02/10/22 11:44 Sodium Chloride 0.9% IV 02/11/22 11:29 30 mls/hr .Q24H SURI Administration Non-Formulary Medication 2 inh 02/08/22 22:39 02/10/22 04:22 Levalbuterol Tartrate INHALATION Not Given Q6H SURI Pantoprazole Sodium 40 mg 02/08/22 22:15 02/09/22 21:51 Pantoprazole 40 Mg Sdv IVP 40 mg Q12H SURI Administration Pertinent History/Comorbid Conditions* Medical History (Updated 02/09/22 @ 04:47 by Khadijah Chen MD) Breast cancer Gastritis History of malignant melanoma No pertinent past medical history Surgical History (Updated 02/09/22 @ 04:47 by Khadijah Chen MD) H/O mastectomy History of appendectomy History of hysterectomy History of tonsillectomy Family History (Updated 02/01/22 @ 09:03 by Vielka Landis LPN) Cancer Grandmother Paternal--breast Hypertension Mother Denies family history of Diabetes CAD (coronary artery disease) Clotting disorder Dementia Hyperlipidemia Chronic kidney disease (CKD) Anesthesia complication Bleeding disorder Lung disease Stroke Social History Smoking and tobacco status: never smoked Alcohol intake: current Alcohol intake frequency: holidays/special occasions only Caregiver/support person: No Lives independently: Yes Household members: spouse Marital status: History of recent travel: No Pertinent Exam Findings alert, oriented x 3, clear to auscultation bilaterally, regular rate & rhythm, operative site marked and procedure specific exam findings Recommendations Surgery/Procedure today Coding Level of Care Code Acute Extracorporeal Circulation Specialist for Cliff Pugh
--- NOTE | 2022-02-10 12:19 | ANES.PREANE2 ---
Pre-Anesthetic Assessment Height/Weight: Height 1.68 m Weight 113.398 kg Temp Pulse Resp BP Pulse Ox O2 Del Method 97.5 F L 78 18 135/63 95 02/10/22 11:38 02/10/22 11:38 02/10/22 11:38 02/10/22 11:38 02/10/22 11:38 02/10/22 11:38 Preop Diagnosis: Blood loss anemia Operation Date: 02/10/22 12:30 Proposed Procedures p Colonoscopy(Not Applicable) - Luca Dolan MD s EGD(Not Applicable) - Luca Dolan MD Was Beta Gladis taken within 24 hours: N/A Was Clonidine taken within 24 hours: N/A Social No alcohol and No tobacco Exam alert, oriented x 3, clear to auscultation bilaterally and regular rate & rhythm Airway Submandibular: within normal limits Cervical ROM: within normal limits Mallampati: Class II Dentition: full History/ROS No significant history except as noted and No significant complaints Pulmonary Asthma Covid in October. Fine now CV/HEM None reported Recent transfusion None reported Hepatic None reported GI None reported Metabolic Morbid Obesity Musc/skel None reported Neuropsych None reported Anesthetic Plan ASA status: 2 Anesthesia: Anesthesia Evaluation and MAC Risk of > 500 ml blood loss (7ml/kg in children): No Medications/Allergies Home Medications Medication Instructions Recorded Confirmed Last Taken Type fexofenadine 60 mg tablet 60 mg PO DAILY 02/01/22 02/08/22 02/07/22 History levalbuterol tartrate 45 2 inh inhalation Q6H #15 grams 02/01/22 02/08/22 02/08/22 Rx mcg/actuation aerosol inhaler triprolidine 1.25 mg-phenyleph 5 20 ml PO Q4H 02/01/22 02/08/22 02/07/22 History mg-DM 10 mg-acetamin 325 mg/10mL oral (Mucinex Nightshift Cold-Flu Clr) aspirin 81 mg tablet,delayed 81 mg PO DAILY 02/08/22 02/08/22 02/07/22 History release pvzzrbopd-UQR-llwtfhcwcrfyd tablet 1 tab PO Q6H 02/08/22 02/08/22 Unknown History ibuprofen 200 mg tablet (Advil) 200 mg PO Q6H PRN Pain 10/05/22 10/05/22 10/04/22 History Allergies Allergy/AdvReac Type Severity Reaction Status Date / Time codeine Allergy Vomit Verified 02/10/22 15:21 penicillin G Allergy Rash Verified 02/10/22 15:21 Current Medications Generic Name Dose Route Start Last Admin Trade Name Freq PRN Reason Stop Dose Admin Acetaminophen 650 mg 02/08/22 22:06 02/09/22 10:45 Acetaminophen 325 Mg Tablet PO 650 mg Q6H PRN Administration Mild/Mod Pain Or Temp >/= 101 Amlodipine Besylate 10 mg 02/10/22 09:00 02/10/22 09:13 Amlodipine 10 Mg Tablet PO 10 mg DAILY SURI Administration Iron Sucrose 200 mg/ Sodium 110 mls @ 220 mls/hr 02/09/22 10:00 02/09/22 12:15 Chloride IV Infused Q24H SURI Infusion Sodium Chloride 1,000 mls @ 50 mls/hr 02/09/22 10:30 02/10/22 09:12 Sodium Chloride 0.9% IV 50 mls/hr .Q20H SURI Administration Sodium Chloride 1,000 mls @ 30 mls/hr 02/10/22 11:30 02/10/22 11:44 Sodium Chloride 0.9% IV 02/11/22 11:29 30 mls/hr .Q24H SURI Administration Non-Formulary Medication 2 inh 02/08/22 22:39 02/10/22 04:22 Levalbuterol Tartrate INHALATION Not Given Q6H SURI Pantoprazole Sodium 40 mg 02/08/22 22:15 02/09/22 21:51 Pantoprazole 40 Mg Sdv IVP 40 mg Q12H SURI Administration PFSH Anesthesia Medical History Breast cancer Gastritis History of malignant melanoma No pertinent past medical history Surgical History H/O mastectomy History of appendectomy History of hysterectomy History of tonsillectomy Family History Grandmother Cancer Paternal--breast Mother Hypertension Denies family history of Diabetes CAD (coronary artery disease) Clotting disorder Dementia Hyperlipidemia Chronic kidney disease (CKD) Anesthesia complication Bleeding disorder Lung disease Stroke Social History Smoking and tobacco status: never smoked Alcohol intake: current Alcohol intake frequency: holidays/special occasions only Caregiver/support person: No Lives independently: Yes Household members: spouse Marital status: History of recent travel: No Data Anesthesia : 02/10/22 05:00 02/10/22 05:00 Short CBC 02/08/22 02/09/22 02/10/22 Range/Units 16:24 03:06 05:00 WBC 9.8 9.2 8.4 (4.0-10.0) 10^3/uL Hgb 6.1 L* 8.0 L D 8.2 L (11.5-15.3) g/dL Hct 22.4 L 27.4 L 29.0 L (37.0-47.0) % MCV 66.5 L 71.2 L D 73.0 L (81-99) fl Plt Count 293 249 245 (130-400) 10^3/cmm Neut % (Auto) 63.3 62.5 65.1 % Neut # (Auto) 6.20 5.77 5.44 (1.8-7.7) 10^3/uL BMP 02/08/22 02/10/22 16:24 05:00 Sodium 138 145 Potassium 4.0 4.0 Chloride 104 109 H Carbon Dioxide 24 24 BUN 13 7 L Creatinine 0.7 0.8 Glucose 109 105 Calcium 8.9 8.7 Cardiac Enzymes 02/08/22 02/08/22 02/08/22 Range/Units 16:24 16:24 18:35 Troponin T Baseline 50 H (0-10) ng/L Troponin T 120 Minute 59.01 H (0-10) ng/L Delta Troponin T 9.01 (0-10) ABS# Troponin T Hi Sens 6Hr (0-10) ng/L Troponin T Hi Sens 6Hr Delta (0-12) ng/L NT-Pro-B Natriuret Pep 342 (0-450) pg/mL 02/09/22 Range/Units 03:06 Troponin T Baseline (0-10) ng/L Troponin T 120 Minute (0-10) ng/L Delta Troponin T (0-10) ABS# Troponin T Hi Sens 6Hr 75.93 H (0-10) ng/L Troponin T Hi Sens 6Hr Delta 25.93 H* (0-12) ng/L NT-Pro-B Natriuret Pep (0-450) pg/mL Liver Function 02/08/22 02/10/22 Range/Units 18:35 05:00 Total Bilirubin 0.3 0.4 (0.15-1.2) mg/dL Direct Bilirubin 0.20 (0.00-0.30) mg/dL AST 16 20 (0-32) U/L ALT 10 7 (0-33) U/L Alkaline Phosphatase 85 86 (35-105) U/L Albumin 3.8 3.5 (3.5-5.2) g/dL Blood Bank 02/08/22 17:34 Blood Type A Positive Rho(D) Type Positive Antibody Screen Negative Cardiac Studies: Echocardiogram 02/08/22
[2022-02-10 13:55] LABS: Carcinoembryonic Antigen 6.9 ng/mL (0.0-4.7)
--- NOTE | 2022-02-10 14:22 | PM.PN ---
Subjective Subjective: No acute events overnight. Seen with family at bedside. Seen before and after EGD today. Tolerated procedure well. An EGD she was found to have chronic gastritis ulcer without bleeding. 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 Patient hemoglobin has remained stable. Vitals/I&O/Wt Last Vital Signs Temp 97.2 F L 02/10/22 13:00 Pulse 75 02/10/22 13:18 Resp 18 02/10/22 13:18 BP 131/94 02/10/22 13:18 Pulse Ox 99 02/10/22 13:18 O2 Del Method 02/10/22 13:18 02/09/22 02/10/22 02/10/22 22:59 06:59 14:59 Intake Total 120 / 230 0 / 230 1600 / 1600 Balance 120 / -270 0 / -270 1600 / 1600 Weight last 48 hrs Weight 113.398 kg Physical Exam Narrative: General: No acute distress, AO x3, pallor present HEENT: PERRLA, pupils bilaterally equal and reactive Chest: Normal vesicular breath sounds, no added sounds, equal good air entry bilaterally CVS: S1-S2 regular, no murmurs, no tachycardia, no gallops, no rubs Abdomen: Soft, nontender, no organomegaly, bowel sounds present Neuro: No focal deficits, no facial deformity, AO x3, power 5/5 in all limbs Data : 02/10/22 05:00 02/10/22 05:00 A&P Assessment and plan (1) Anemia: Secondary GI bleed and severe iron deficiency. Hemoglobin has remained stable. Post treatment of blood transfusion. Post EGD and colonoscopy with Dr. Dolan today. Continue with IV iron supplementation. Protonix 40 mg twice daily. (2) GI bleed: Secondary to chronic gastric ulcer along with cecal partially obstructive mass. Protonix as above. Will need to avoid NSAIDs going forward for the next 2 weeks. (3) Cecum mass: Dr. Pineda consulted from Dr. Dolan. Care discussed later with Dr. Pineda. He will reassess the ED images with radiologist before making further plans. Hold off on discharge for now. CEA mildly elevated. (4) Chronic gastritis without bleeding: (5) Dyspnea on exertion: Continue to monitor. Oxygen supplementation saturation over 92%. (6) Elevated troponin: As above (7) Chest pain: Troponins elevated with positive delta. Most likely demand ischemia. Echocardiogram done shows a normal EF of 65 to 70% without regional wall motion abnormality. Normal diastolic function, RVSP of 43 mmHg. Will need cardiac Lexiscan stress test as an outpatient. Appreciate A1c, lipid panel results. Started on statins. Plan Full code. NPO. Advance as per surgery. Protonix for PUD prophylaxis SCDs for DVT prophylaxis Attestations Medical Necessity Statement*: Requires further hospitalization for further evaluation and management of cecal mass leading to GI bleed and blood loss anemia. Time Spent in Patient Care: Greater than 35 minutes Coding Level of Care Code Acute Wide Area Network Administrator for Chg Fwd Diagnoses Anemia D64.9 GI bleed K92.2 Cecum mass K63.89 Chronic gastritis without bleeding K29.50 Dyspnea on exertion R06.09 Elevated troponin R77.8 Chest pain R07.9
--- NOTE | 2022-02-10 15:20 | P.CONIM_ITS ---
Providers/Reason For Consult Consulting Physician/Specialty*: Gera Pineda MD Reason for Consult*: Colon growth Requesting Physician: Dr. Dolan Attending Physician: Best Rose MD Primary Care Provider: Shadi Mcnally DO History of Present Illness History of Present Illness Ms.Nancy Cabrera is a pleasant 76 year old female presented to the emergency department with generalized weakness and acute shortness of breath. 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 Patient was found to have a hemoglobin of 6.1 g.denies history of hematemesis or hematochezia. Previous EGD in the showed gastritis and patient has not been on PPI therapy. Never had a colonoscopy before and denies history of colon cancer. Dr. Dolan was consulted as being the GI on-call provider and he performed an EGD and colonoscopy today and was found to have chronic gastritis with concern of chronic gastric ulcers and a colonoscopy that found a growth reported initially to be in the cecum but after discussing the case and I did review the images of the CT scan I did find a growth towards the distal ascending colon/hepatic flexure. General surgery was consulted for further evaluation and potential intervention. Patient received 2 units of packed RBCs and she does not show any signs or symp toms of bowel obstruction. Review of Systems General: Reports: 10 or more systems reviewed and unremarkable except in HPI and below Medications/Allergies Home Medications Medication Instructions Recorded Confirmed Last Taken Type fexofenadine 60 mg tablet 60 mg PO DAILY 02/01/22 02/08/22 02/07/22 History levalbuterol tartrate 45 2 inh inhalation Q6H #15 grams 02/01/22 02/08/22 02/08/22 Rx mcg/actuation aerosol inhaler triprolidine 1.25 mg-phenyleph 5 20 ml PO Q4H 02/01/22 02/08/22 02/07/22 History mg-DM 10 mg-acetamin 325 mg/10mL oral (Mucinex Nightshift Cold-Flu Clr) aspirin 81 mg tablet,delayed 81 mg PO DAILY 02/08/22 02/08/22 02/07/22 History release obmvmswng-QQF-pszmkqficiaop tablet 1 tab PO Q6H 02/08/22 02/08/22 Unknown History ibuprofen 200 mg tablet (Advil) 200 mg PO Q6H PRN Pain 02/08/22 02/08/22 02/07/22 History erythromycin 500 mg tablet 500 mg PO ONCE #3 tabs 02/10/22 02/10/22 Unknown Rx neomycin 500 mg tablet 1 g PO ONCE #6 tabs 02/10/22 02/10/22 Unknown Rx peg 3350-electrolytes 236 240 ml PO Q10M #4,000 mL 02/10/22 02/10/22 Unknown Rx gram-22.74 gram-6.74 gram-5.86 gram solution (Golytely) Allergies Allergy/AdvReac Type Severity Reaction Status Date / Time codeine Allergy Vomit Verified 02/10/22 15:21 penicillin G Allergy Rash Verified 02/10/22 15:21 Current Medications Generic Name Dose Route Start Last Admin Trade Name Freq PRN Reason Stop Dose Admin Acetaminophen 650 mg 02/08/22 22:06 02/09/22 10:45 Acetaminophen 325 Mg Tablet PO 650 mg Q6H PRN Administration Mild/Mod Pain Or Temp >/= 101 Amlodipine Besylate 10 mg 02/10/22 09:00 02/10/22 09:13 Amlodipine 10 Mg Tablet PO 10 mg DAILY SURI Administration Iron Sucrose 200 mg/ Sodium 110 mls @ 220 mls/hr 02/09/22 10:00 02/09/22 12:15 Chloride IV 02/13/22 10:29 Infused Q24H SURI Infusion Sodium Chloride 1,000 mls @ 50 mls/hr 02/09/22 10:30 02/10/22 09:12 Sodium Chloride 0.9% IV 50 mls/hr .Q20H SURI Administration Non-Formulary Medication 2 inh 02/08/22 22:39 02/10/22 04:22 Levalbuterol Tartrate INHALATION Not Given Q6H SURI Pantoprazole Sodium 40 mg 02/08/22 22:15 02/09/22 21:51 Pantoprazole 40 Mg Sdv IVP 40 mg Q12H SURI Administration PFSH Acute PFSH: Medical History Breast cancer Gastritis History of malignant melanoma No pertinent past medical history Surgical History H/O mastectomy History of appendectomy History of hysterectomy History of tonsillectomy Family History Grandmother Cancer Paternal--breast Mother Hypertension Denies family history of Diabetes CAD (coronary artery disease) Clotting disorder Dementia Hyperlipidemia Chronic kidney disease (CKD) Anesthesia complication Bleeding disorder Lung disease Stroke Social History Smoking and tobacco status: never smoked Alcohol intake: current Alcohol intake frequency: holidays/special occasions only Caregiver/support person: No Lives independently: Yes Household members: spouse Marital status: History of recent travel: No Vitals/I&O/Wt Last Vital Signs Temp 97.2 F L 02/10/22 13:00 Pulse 75 02/10/22 13:18 Resp 18 02/10/22 13:18 BP 131/94 02/10/22 13:18 Pulse Ox 99 02/10/22 13:18 O2 Del Method 02/10/22 13:18 02/10/22 02/10/22 02/10/22 06:59 14:59 22:59 Intake Total 0 / 230 1600 / 1600 Balance 0 / -270 1600 / 1600 Weight last 48 hrs Weight 250 lb Physical Exam Const: COMMON NORMALS: no acute distress and patient oriented x3 GENERAL APPEARANCE: cooperative ORIENTATION/CONSCIOUSNESS: Yes awake, Yes oriented to person, Yes oriented to place and Yes oriented to time HENMT: COMMON NORMALS: normocephalic HEAD & SCALP: normocephalic Eye: COMMON NORMALS: Equal, round and reactive pupils present and no scleral icterus PUPIL: Yes Equal, round and reactive pupils present Lymph: LYMPHATIC: no lymphadenopathy noted Chest: COMMONS NORMALS: normal inspection of the chest Resp: COMMON NORMALS: normal respiratory effort and clear to auscultation bilaterally AUSCULTATION: clear to auscultation bilaterally Cardio: COMMON NORMALS: S1 normal heart sound present and S2 normal heart sound present; negative for No murmurs present (Cardio) (Precordial murmur) HEART SOUNDS: S1 normal heart sound present and S2 normal heart sound present GI: COMMON NORMALS: Soft to palpation; negative for No hepatosplenomegaly present INSPECTION: Yes normal to inspection PALPATION: Yes Soft to palpation, No Firmness to palpation present (GI), No Tenderness to palpation present (GI), No Guarding due to palpation present (GI), No Rigid due to palpation and No No hepatosplenomegaly present Neuro: COMMON NORMALS: patient oriented x3 SENSORIUM/ORIENTATION: Yes oriented to person, Yes oriented to place and Yes oriented to time Psych: COMMON NORMALS: mental status grossly normal Skin: COMMON NORMALS: no rashes or lesions noted GENERAL SKIN EXAM: no rashes or lesions noted Data : 02/10/22 05:00 02/10/22 05:00 A&P Assessment and plan (1) Mass of hepatic flexure of colon: After thorough history physical examination and reviewing the chart and images with my personal interpretation and further discussing the case with Dr. Ambriz our radiologist as she did agree with me about the presence of a distal ascending colon growth and even added presence of associated lymph nodes in the nearby mesentery. I did send for carcinoembryonic antigen which came back at 6.9. At this point I did discuss with the patient in length and in depth with my recommendation to proceed with laparoscopic right hemicolectomy possible open. Indications, risks, benefits and alternatives all discussed with the patient and her spouse, including but not limited to infection, bleeding, pain, failure to benefit, DVT PE, pneumonia, anastomotic leak that may require potential intervention and ileostomy or colostomy. Prolonged hospitalization. I did contact my office to schedule the patient for this coming Sunday and I also communicated with Dr. Sahni hospitalist to repeat labs in the morning and obtain an ultrasound of the gallbladder. I also discussed the findings of the colonoscopy with our pathologist and we should be having results by Sunday. (2) Cholelithiasis: At this point patient does not give distinct history of fatty dyspepsia, we will obtain a dedicated ultrasound of the gallbladder to have a better understanding of the underlying anatomy in case that we need to intervene at the same time with a right hemicolectomy. Plan of care; After thorough history physical examination and reviewing the chart and images with my personal intrepreatation.I counseled the patient for laparoscopic cholecystectomy possible open, indications risks including but not limited injury to the common bile duct and/or other viscera,that may require potential future surgical interventions including but not limited to ERCP and or laparatomy that may include Hepatobiliary surgery.Benefits and alternatives all discussed with the patient, and patient did agree to proceed accordingly. All questions have been answered and all concerns have been addressed to patient's satisfaction. Rationale was carefully and clearly discussed with the patient.Appropriate informed consent have been reviewed and signed. Assurance and education All questions have been answered and all concerns have been addressed to patient's satisfaction. Consult Attestations Medical Necessity Statement: Per admitting service Time Spent in Patient Care: 16 - 35 minutes Coding Level of Care Code Acute First Assistant for g Fwd Exam Comprehensive Diagnoses Mass of hepatic flexure of colon K63.89 Cholelithiasis K80.20
[2022-02-10] MEDS: pantoprazole 40 mg SDV IVP ×2 (15:34→22:10)
--- NOTE | 2022-02-10 15:52 | ANE.PACU2 ---
Inpatient post-anesthesia follow up: Airway intact: Yes Vital signs: Temperature 97.2 F Pulse Rate 75 Respiratory Rate 18 Blood Pressure 131/94 Pulse Oximetry 99 Oxygen Delivery Me thod Room Air Oxygen Flow Rate Fraction of Inspir ed Oxygen Hydration adequate: Yes Nausea and vomiting: No Pain level: 1 Mental status: Baseline
[2022-02-10] MEDS: iron sucrose 200 MG in sodium chloride 0.9% (100 ml) 100 ML 220 MG IV (16:41)
[2022-02-11 00:04] VITALS: BP 153/67; PULSE 82; RESP 18; TEMP 37; O2SAT 97
[2022-02-11 04:27] VITALS: BP 123/67; PULSE 73; RESP 16; TEMP 36.8; O2SAT 95
[2022-02-11 05:50] VITALS: PULSE 67
[2022-02-11 07:38] VITALS: PULSE 88; RESP 16; O2SAT 96
[2022-02-11 07:59] VITALS: BP 136/70; PULSE 72; RESP 16; TEMP 36.8; O2SAT 96
--- NOTE | 2022-02-11 08:50 | PC.SOCIAL ---
IMM update Imm page 2 updated with patient at bedside. Copy of page 2 provided. Patient verbalized understanding. Copy in chart initialed, dated and timed.
[2022-02-11] MEDS: amlodipine 10 mg Tablet PO (09:02)
[2022-02-11] MEDS: pantoprazole 40 mg SDV IVP (09:04)
[2022-02-11] MEDS: iron sucrose 200 MG in sodium chloride 0.9% (100 ml) 100 ML 220 MG IV (10:03)
[2022-02-11 10:06] LABS: Basophils # 0.1 10^3/uL (0.0-0.1); Basophils % 0.5 %; Eosinophils # 0.2 10^3/uL (0.0-0.8); Eosinophils % 2.1 %; Hematocrit 30.1 % (37.0-47.0); Hemoglobin 8.8 g/dL (11.5-15.3); Lymphocytes # 1.4 10^3/uL (0.8-4.8); Lymphocytes % 14.3 %; Mean Corpuscular HGB Conc 29.2 g/dL (30.0-36.0); Mean Corpuscular Hemoglobin 21.3 pg (28.0-34.0); Mean Corpuscular Volume 72.9 fl (81-99); Mean Platelet Volume 10.8 fL (7.4-10.4); Monocytes # 0.9 10^3/uL (0.2-0.9); Monocytes % 9.5 %; Neutrophils % 73.2 %; Nucleated Red Blood Cells % 0.3 %; Platelet Count 255 10^3/cmm (130-400); Red Blood Count 4.13 10^6/uL (4.1-5.3); Red Cell Distribution Width 24.1 % (12.1-15.1); White Blood Count 9.7 10^3/uL (4.0-10.0)
[2022-02-11 10:25] LABS: Alanine Aminotransferase 6 U/L (0-33); Albumin Level 3.5 g/dL (3.5-5.2); Alkaline Phosphatase 73 U/L (35-105); Anion Gap 13.6 (5-19); Aspartate Amino Transferase 11 U/L (0-32); Blood Urea Nitrogen 5 mg/dL (8-23); Calcium 8.9 mg/dL (8.5-10.5); Carbon Dioxide 25 mmol/L (22-29); Chloride 106 mmol/L (98-107); Globulin 2.8 g/dL (1.3-4.6); Glucose 122 mg/dL (65-115); Osmolality Calculated 291 mOsm/kg (285-295); Potassium 3.6 mmol/L (3.5-5.1); Sodium 141 mmol/L (136-145); Total Bilirubin 0.5 mg/dL (0.15-1.2); Total Protein 6.3 g/dL (6.6-8.7)
--- NOTE | 2022-02-11 11:14 | P.DS_ITS ---
Discharge Providers Date of Admission: 02/08/22 22:39 Date of Discharge: February 11, 2022 Attending Provider at Admission: Khadijah Chen MD Attending Provider at Discharge: Best Rose MD Consults: GI: Dr. Dolan Sx: Dr. Sarmiento Primary Care Provider: Shadi Mcnally DO Diagnoses at Discharge Discharge Diagnosis (1) Mass of hepatic flexure of colon: Status: Acute (2) Cholelithiasis: Status: Chronic Reason for Visit Reason for Visit: Sent by Uli Chest Pain/ SOB Hospital Course Hospital Course Celine Cabrera is a 76 year old female who presented to the emergency department with shortness of breath.? She was noted to be profoundly anemic and have heme positive stools.? She denies hematochezia or black tarry stools.? She is admitted to a fairly long history of dyspepsia and early satiety.? She says she is losing weight because she cannot really eat very well.? She says her stomach feels good infrequently and usually feels bad when it is empty and then when she eats food.? She admits to some weight loss, but she is attributed that to her early satiety.? She has not felt well since she had COVID last year, and had attributed her symptoms to long COVID.? She has never had a colonoscopy. Patient was in the hospital further evaluation and management. He received 2 units of blood transfusion. Patient underwent endoscopy and colonoscopy on which was consistent with nonbleeding chronic gastritis and a possible mass at splenic flexure. Biopsy from the mass was taken and surgery was consulted. Blood work showed severe iron deficiency anemia. On admission patient did have shortness of breath and mild chest heaviness most likely from demand ischemia secondary to acute anemia. Echocardiogram was done which ruled out regional wall motion abnormality and showed normal EF. Patient's hospitalization was otherwise unremarkable. During hospitalization patient was found to have elevated blood pressures for which she started on low-dose amlodipine to which she responded well. She has been discharged hemodynamic stable condition on oral iron supplementation advised to follow-up with Dr. Pineda in [place] on coming Wednesday 02/14 for hemicolectomy. He is to follow-up with a primary care provider later with a blood pressure diary for further adjustment of antihypertensive if and as needed. Physical Exam Narrative: General: No acute distress, AO x3, pallor present HEENT: PERRLA, pupils bilaterally equal and reactive Chest: Normal vesicular breath sounds, no added sounds, equal good air entry bilaterally CVS: S1-S2 regular, no murmurs, no tachycardia, no gallops, no rubs Abdomen: Soft, nontender, no organomegaly, bowel sounds present Neuro: No focal deficits, no facial deformity, AO x3, power 5/5 in all limbs Discharge Data Studies Completed and Pending Completed Studies During Hospitalization Category Date Time Status CT abdomen pelvis w con* [id number] Stat Cat Scan 02/08/22 19:17 Completed XR chest 1V portable [id number] Stat Exams 02/08/22 15:58 Completed CV. echo complete* [id number] Routine Ultrasound 02/08/22 22:39 [place] liver [id number] Routine Ultrasound 02/11/22 16:43 Completed Pending at discharge Category Date Time Status Fecal Occult Blood [Immunochemical Fecal OCB] Routine Lab 02/08/22 21:57 Uncollected H. Pylori / REYES Test Routine Lab 02/10/22 13:00 Ordered Urinalysis Routine Lab 02/09/22 09:41 Ordered Pathology: Surgical [PTH] Routine Pth 02/10/22 13:00 Received Radiology Impressions Chest X-Ray 02/08/22 15:58 IMPRESSION: No acute findings. Abdomen/Pelvis CT 02/08/22 19:17 IMPRESSION: 1. No acute findings. 2. Cholelithiasis without definitive evidence of cholecystitis. 3. 6 mm right middle lobe pulmonary nodule.For patients at low risk (minimal or absent history of smoking and of other known risk factors), recommend CT Chest at 6-12 months, then consider CT Chest at 18-24 months. For patients at high risk (history of smoking or of other known risk factors), recommend CT Chest at 6-12 months, then CT Chest at 18-24 months. (Reference: Kurt) 4. Left adrenal nodule. Consider 12 month follow-up adrenal CT. (Reference: Randall) 5. Incidental findings above. COMMENTS: Consistent with the [employer]'s Incidental Findings Committee white paper (J Am Amie Radiol 2018): Any incidental renal lesion less than 1 cm or classified as too small to characterize, or any incidental cystic renal lesion characterized as simple-appearing, is likely benign. No follow-up imaging is recommended for these lesions per consensus recommendations based on imaging criteria. REFERENCES: 1. Kurt H, et al. Guidelines for Management of Incidental Pulmonary Nodules Detected on CT Images: From the Fleischner Society 2017. Radiology. 2017;284(1):228-243. 2. Randall ROSE et al. Management of Incidental Adrenal Masses: A White Paper of the ACR Incidental Findings Committee. J Am Amie Radiol. 2017;14(8):6337-8785. Liver Ultrasound 02/11/22 16:43 IMPRESSION: 1. Hyperechoic liver, which can be seen with fatty infiltration or hepatocellular disease. 2. Imaging findings suggestive of calculus cholecystitis. Clinical correlation is recommended. Further evaluation with HIDA scan should be considered in the adequate clinical setting. Laboratory Results WBC 9.7 10^3/uL (4.0-10.0) 02/11/22 09:54 RBC 4.13 10^6/uL (4.1-5.3) 02/11/22 09:54 Hgb 8.8 g/dL (11.5-15.3) L 02/11/22 09:54 Hct 30.1 % (37.0-47.0) L 02/11/22 09:54 MCV 72.9 fl (81-99) L 02/11/22 09:54 MCH 21.3 pg (28.0-34.0) L 02/11/22 09:54 MCHC 29.2 g/dL (30.0-36.0) L 02/11/22 09:54 RDW 24.1 % (12.1-15.1) H 02/11/22 09:54 Plt Count 255 10^3/cmm (130-400) 02/11/22 09:54 MPV 10.8 fL (7.4-10.4) H 02/11/22 09:54 Neut % (Auto) 73.2 % 02/11/22 09:54 Lymph % (Auto) 14.3 % 02/11/22 09:54 Harnett % (Auto) 9.5 % 02/11/22 09:54 Eos % (Auto) 2.1 % 02/11/22 09:54 Baso % (Auto) 0.5 % 02/11/22 09:54 Neut # (Auto) 7.10 10^3/uL (1.8-7.7) 02/11/22 09:54 Lymph # (Auto) 1.4 10^3/uL (0.8-4.8) 02/11/22 09:54 Harnett # (Auto) 0.9 10^3/uL (0.2-0.9) 02/11/22 09:54 Eos # (Auto) 0.2 10^3/uL (0.0-0.8) 02/11/22 09:54 Baso # (Auto) 0.1 10^3/uL (0.0-0.1) 02/11/22 09:54 Nucleated RBC % (auto) 0.3 % 02/11/22 09:54 Nucleated RBCs # 0.0 /100WBC 02/11/22 09:54 Haptoglobin 251.0 mg/L (30-200) H 02/08/22 18:35 Sodium 141 mmol/L (136-145) 02/11/22 09:54 Potassium 3.6 mmol/L (3.5-5.1) 02/11/22 09:54 Chloride 106 mmol/L (98-107) 02/11/22 09:54 Carbon Dioxide 25 mmol/L (22-29) 02/11/22 09:54 Anion Gap 13.6 (5-19) 02/11/22 09:54 BUN 5 mg/dL (8-23) L 02/11/22 09:54 Creatinine 0.8 mg/dL (0.5-0.9) 02/11/22 09:54 GFR Calculation Not Reportable 02/11/22 09:54 Glucose 122 mg/dL (65-115) H 02/11/22 09:54 Estimat Average Glucose 97 02/09/22 03:06 Hemoglobin A1c 5.0 % (4.0-6.0) 02/09/22 03:06 Calculated Osmolality 291 mOsm/kg (285-295) 02/11/22 09:54 Calcium 8.9 mg/dL (8.5-10.5) 02/11/22 09:54 Iron 13 ug/dL (37-145) L 02/08/22 18:35 Transferrin 368 mg/dL (200-360) H 02/08/22 18:35 Ferritin 6 ng/mL (15-150) L 02/08/22 18:35 Total Bilirubin 0.5 mg/dL (0.15-1.2) 02/11/22 09:54 Direct Bilirubin 0.20 mg/dL (0.00-0.30) 02/08/22 18:35 AST 11 U/L (0-32) 02/11/22 09:54 ALT 6 U/L (0-33) 02/11/22 09:54 Alkaline Phosphatase 73 U/L (35-105) 02/11/22 09:54 Lactate Dehydrogenase 243 U/L (135-214) H 02/08/22 18:35 Troponin T Baseline 50 ng/L (0-10) H 02/08/22 16:24 Troponin T 120 Minute 59.01 ng/L (0-10) H 02/08/22 18:35 Delta Troponin T 9.01 ABS# (0-10) 02/08/22 18:35 Troponin T Hi Sens 6Hr 75.93 ng/L (0-10) H 02/09/22 03:06 Troponin T Hi Sens 6Hr Delta 25.93 ng/L (0-12) H* 02/09/22 03:06 NT-Pro-B Natriuret Pep 342 pg/mL (0-450) 02/08/22 16:24 Total Protein 6.3 g/dL (6.6-8.7) L 02/11/22 09:54 Albumin 3.5 g/dL (3.5-5.2) 02/11/22 09:54 Globulin 2.8 g/dL (1.3-4.6) 02/11/22 09:54 Triglycerides 86 mg/dL (0-150) 02/09/22 03:06 Cholesterol 159 mg/dL (0-200) 02/09/22 03:06 LDL Cholesterol, Calc 106 mg/dL (50-129) 02/09/22 03:06 Total VLDL Cholesterol 17 mg/dL (0-30) 02/09/22 03:06 HDL Cholesterol 36 mg/dL (60-100) L 02/09/22 03:06 Cholesterol/HDL Ratio 4.42 mg/dL (0.0-4.40) H 02/09/22 03:06 Carcinoembryonic Ag 6.9 ng/mL (0.0-4.7) H 02/10/22 05:00 Vitamin B12 Cancelled 02/09/22 03:06 Folate 8.9 ng/mL (4.8-37.3) 02/08/22 16:24 TSH 2.56 uIU/mL (0.27-4.20) 02/08/22 16:24 Free T4 1.18 ng/dL (0.82-1.77) 02/08/22 16:24 Blood Type A Positive 02/08/22 17:34 Rho(D) Type Positive 02/08/22 17:34 Antibody Screen Negative 02/08/22 17:34 Crossmatch See Detail 02/08/22 17:34 Vitals Last Vital Signs Temp 98.2 F 02/11/22 07:59 Pulse 72 02/11/22 07:59 Resp 16 02/11/22 07:59 BP 136/70 02/11/22 07:59 Pulse Ox 96 02/11/22 07:59 O2 Del Method 02/11/22 07:59 Discharge Plan Discharge Patient Disposition: Home Condition: Stable Prescriptions: New Protonix 40 mg tablet,delayed release (DR/EC) 40 mg PO Q12H 10 Days Qty: 20 0RF ferrous gluconate 324 mg (37.5 mg iron) tablet 324 mg PO BID Qty: 60 0RF amlodipine 5 mg tablet 5 mg PO DAILY Qty: 30 0RF Continued Mucinex Nightshft Cold-Flu Clr 1.25-5-10-325 mg/10 mL liquid 20 ml PO Q4H Rx Instructions: do not exceed 4 doses per 24 hrs levalbuterol tartrate 45 mcg/actuation HFA aerosol inhaler 2 inh inhalation Q6H Qty: 15 3RF fexofenadine 60 mg tablet 60 mg PO DAILY neomycin 500 mg tablet 1 g PO ONCE Qty: 6 0RF Rx Instructions: Take 2 tablets at 3PM, 4PM, and 10PM peg 3350-electrolytes [Golytely] 236-22.74-6.74 -5.86 gram recon soln 240 ml PO Q10M Qty: 4000 0RF Rx Instructions: until fecal effluent is clear aspirin 81 mg Tablet,Delayed Release (Dr/Ec) 81 mg PO DAILY ajjpthbwf-NGC-djnqrplsgrlag Tablet 1 tab PO Q6H Discontinued erythromycin 500 mg tablet 500 mg PO ONCE Qty: 3 0RF Rx Instructions: Take 1 tablet at 3PM, 4PM, and 10PM ibuprofen [Advil] 200 mg Tablet 200 mg PO Q6H PRN (Reason: Pain) Discharge Orders: Discharge Order (Routine); Ordered 02/11/22 Ordered By: Best Rose Referrals: Shadi Mcnally DO [Primary Care Provider] - 7-10 days (Please call Sunday to schedule a follow up appointment.) Gera Pineda MD [Physician] - 02/14/22 (Please call Sunday to schedule a follow up appointment.) Discharge Diet: Cardiac Discharge Activity: Resume usual activity and Increase activity as tolerated Patient Instructions: Iron Supplements (By mouth), Amlodipine (By mouth), Pantoprazole (By mouth), Gastritis (DC), Colectomy (GEN), GI Discharge Instructions, Opioid Safety Activity Restrictions/Additional Instructions: Please f/u with PCP in 1 week for repeat CBC Please f/u with Dr. Sarmiento on Sunday for OR Take amlodipine 5 mg daily for BP and maintain BP diary and f/u with PC for further adjustemnt as needed. Discharge Attestations Time Spent in Discharge Care*: greater than 30 min Specific Discharge Activities: educating patient, educating and/or supporting family/caregiver, discussing with pcp/other providers, discussing with case reviewer/social workers/dc planners, documenting/other paperwork and evaluating patient/reviewing data Status at Discharge: Cognitive status at discharge: cognitively intact , Behavioral status at discharge: cooperative , Functional status at discharge: independent ambulation , Overall status at discharge: patient is progressing back to baseline Quality Metrics Clinical Quality Measures [ No reported AMI, CVA or VTE this stay] Coding Level of Care Code Acute Chg FW DC note Diagnoses Mass of hepatic flexure of colon K63.89 Cholelithiasis K80.20
[2022-02-11 11:31] VITALS: BP 136/70; PULSE 72; RESP 16; TEMP 36.8; O2SAT 96
--- NOTE | 2022-02-11 16:43 | USR_ITS ---
PROCEDURE INFORMATION: Exam: US Abdomen, Limited; Right Upper Quadrant Exam date and time: 02/11/2022 5:43 AM Age: 76 years old Clinical indication: Abdominal pain; Acute; Additional info: Cholelithiasis, PT will be npo post midnight. Spoke to monique. . . Pt's nurse. TECHNIQUE: Imaging protocol: Real time ultrasound of the abdomen with image documentation. Limited exam focused on the right upper quadrant. COMPARISON: CT abdomen pelvis w con* [id number] 02/08/2022 9:02 PM FINDINGS: Liver: Liver is diffusely increased in echogenicity, most commonly seen in hepatic steatosis, though other forms of parenchymal liver disease could have a similar appearance. This limits evaluation for subtle isoechoic masses but no masses are seen. Gallbladder: Gallstones noted. No gallbladder wall thickening or pericholecystic fluid seen. Positive sonographic Ricci's sign. Biliary ducts: Normal. No stones. No dilation. Pancreas: Visualized pancreas is unremarkable. Right kidney: Normal. No mass. No hydronephrosis. US/US liver [id number] IMPRESSION: 1. Hyperechoic liver, which can be seen with fatty infiltration or hepatocellular disease. 2. Imaging findings suggestive of calculus cholecystitis. Clinical correlation is recommended. Further evaluation with HIDA scan should be considered in the adequate clinical setting.
[2022-02-13 06:27] LABS: H. Pylori / CLO Test Negative
--- NOTE | 2022-02-13 13:57 | PC.NURSE ---
Patient's called stating that her medications were not at the pharmacy. I reviewed d/c information and they were sent to [facility] pharmacy, which was not patient's preferred pharmacy. I called and spoke with [facility] and the medications were sent there, but were on hold. I called and spoke with patient's and inquired which pharmacy they would like the Rx sent to. He states one of the [facility] pharmacies would be great. In the meantime, the patient also called on another line. I spoke with her and she reiterated she would prefer them called to an [facility] pharmacy. I called the [place] location and provided a verbal order for Amlodipine, Ferrous Gluconate, and Pantoprazole. I called back to the patient and informed her these would be ready for potato picker through the drive-thru to make it easier for the patient. She verbalizes understanding and was appreciative. I apologized for the confusion and removed [facility] pharmacy from the list of pharmacies for this patient.
[2022-02-14 16:12] LABS: Mismatch Repari Proteins-IHC See Report
== END 2022-02-11 11:39 | disposition home or self-care (01) | DRG 378 ==
LOC: ER 21:52 → MEDSURG 02-09 02:35
PROVIDERS: Internal Medicine; Surgery; Admitting Provider Student in an Organized Health Care Education/Training Program; Emergency Provider Emergency Medicine; PCP Family Medicine; Visit Provider Student in an Organized Health Care Education/Training Program
PROC: 0DJD8ZZ Inspection of Lower Intestinal Tract, Via Natural or Artificial Opening Endoscopic (ICD-10-PCS; CPT 45378; principal; 2022-02-10 12:30)
PROC: 0DJ08ZZ Inspection of Upper Intestinal Tract, Via Natural or Artificial Opening Endoscopic (ICD-10-PCS; CPT 43235; 2022-02-10 12:30)
DX: K25.4 Chronic or unspecified gastric ulcer with hemorrhage (principal); I24.8 Other forms of acute ischemic heart disease; D50.9 Iron deficiency anemia, unspecified; K63.9 Disease of intestine, unspecified; Z85.820 Personal history of malignant melanoma of skin; Z85.3 Personal history of malignant neoplasm of breast; Z86.16 Personal history of COVID-19; Z90.10 Acquired absence of unspecified breast and nipple; R07.9 Chest pain, unspecified; R06.00 Dyspnea, unspecified; R68.81 Early satiety; Z79.82 Long term (current) use of aspirin; K80.20 Calculus of gallbladder without cholecystitis without obstruction
CPT/HCPCS: 36415; 36430; 43239; 45380; 51702; 71045; 74177; 76705; 80048; 80053; 80061; 80076; 82378; 82607; 82728; 82746; 83010; 83036; 83540; 83615; 83880; 84439; 84443; 84466; 84484; 85014; 85018; 85025; 86850; 86900; 86920; 87077; 88304; 88305; 88309; 88331; 88360; 93005; 93306; 93970; 96372; 97116; 97161; 99285; C9113; C9290; J0360; J0744; J1100; J1170; J1644; J1650; J1756; J2370; J2405; J2550; J2704; J2710; J3010; J3490; J7030; P9016; P9047; Q9967; Q9968; S0030

== ENCOUNTER 2022-02-14 12:38 | Inpatient (IN) | payer MEDICARE, OTHER, SELFPAY ==
[2022-02-13 13:06] VITALS: BMI 40.3
--- NOTE | 2022-02-13 13:30 | ANES.PREANE2 ---
Pre-Anesthetic Assessment Height/Weight: Height 1.68 m Weight 113.398 kg Preop Diagnosis: Blood loss anemia Operation Date: 02/14/22 07:00 Proposed Procedures p lap poss open right hemicolectomy 06682,97593,R10.9, K63.89 needs SKYTRON BED(Right) - Gera Pineda MD s Laparoscopic Cholecystectomy(Not Applicable) - Gera Pineda MD Familial anesthetic complications: PONV (occasionally) - vomited once during surgery Social No alcohol and No tobacco Exam alert, oriented x 3, clear to auscultation bilaterally and regular rate & rhythm Airway Mallampati: Class II Dentition: other (3 missing teeth) Pulmonary Asthma gets pneumonia easily, last bout more than 1 year ago CV/HEM Anemia 2 units of blood last week None reported Hepatic None reported GI None reported (gastritis) Metabolic None reported Musc/skel Lower Back Pain and Osteoarthritis/DJD Neuropsych None reported Anesthetic Plan ASA status: 4 Anesthesia: General Risk of > 500 ml blood loss (7ml/kg in children): Yes, adequate IV access and fluids planned Medications/Allergies Home Medications Medication Instructions Recorded Confirmed Last Taken Type fexofenadine 60 mg tablet 60 mg PO DAILY 02/01/22 02/13/22 02/07/22 History levalbuterol tartrate 45 2 inh inhalation Q6H #15 grams 02/01/22 02/13/22 02/08/22 Rx mcg/actuation aerosol inhaler triprolidine 1.25 mg-phenyleph 5 20 ml PO Q4H 02/01/22 02/13/22 02/07/22 History mg-DM 10 mg-acetamin 325 mg/10mL oral (Mucinex Nightshift Cold-Flu Clr) aspirin 81 mg tablet,delayed 81 mg PO DAILY 02/08/22 02/13/22 02/07/22 History release peg 3350-electrolytes 236 240 ml PO Q10M #4,000 mL 02/10/22 02/10/22 Unknown Rx gram-22.74 gram-6.74 gram-5.86 gram solution (Golytely) amlodipine 5 mg tablet 5 mg PO DAILY #30 tabs 02/11/22 02/13/22 Unknown Rx ferrous gluconate 324 mg (37.5 mg 324 mg PO BID #60 tabs 02/11/22 02/13/22 Unknown Rx iron) tablet pantoprazole 40 mg tablet,delayed 40 mg PO Q12H 10 days #20 tabs 02/11/22 02/13/22 Unknown Rx release (Protonix) Allergies Allergy/AdvReac Type Severity Reaction Status Date / Time codeine Allergy Vomit Verified 02/13/22 12:50 penicillin G Allergy Rash Verified 02/13/22 12:50 PFSH Anesthesia Medical History Breast cancer Gastritis History of malignant melanoma No pertinent past medical history Surgical History H/O mastectomy History of appendectomy History of hysterectomy History of tonsillectomy Family History Grandmother Cancer Paternal--breast Mother Hypertension Denies family history of Diabetes CAD (coronary artery disease) Clotting disorder Dementia Hyperlipidemia Chronic kidney disease (CKD) Anesthesia complication Bleeding disorder Lung disease Stroke Social History Smoking and tobacco status: never smoked Alcohol intake: current Alcohol intake frequency: holidays/special occasions only Caregiver/support person: No Lives independently: Yes Household members: spouse Marital status: History of recent travel: No Data Anesthesia Cardiac Studies: Echocardiogram 02/08/22
[2022-02-13 13:36] LABS: Basophils # 0.1 10^3/uL (0.0-0.1); Basophils % 0.8 %; Eosinophils # 0.3 10^3/uL (0.0-0.8); Hematocrit 31.3 % (37.0-47.0); Hemoglobin 8.9 g/dL (11.5-15.3); Lymphocytes # 1.9 10^3/uL (0.8-4.8); Lymphocytes % 18.3 %; Mean Corpuscular HGB Conc 28.4 g/dL (30.0-36.0); Mean Corpuscular Hemoglobin 21.2 pg (28.0-34.0); Mean Corpuscular Volume 74.7 fl (81-99); Mean Platelet Volume 10.9 fL (7.4-10.4); Monocytes # 0.9 10^3/uL (0.2-0.9); Monocytes % 8.5 %; Neutrophils # 6.97 10^3/uL (1.8-7.7); Neutrophils % 68.8 %; Nucleated Red Blood Cells % 0 %; Platelet Count 257 10^3/cmm (130-400); Red Blood Count 4.19 10^6/uL (4.1-5.3); Red Cell Distribution Width 27.3 % (12.1-15.1); White Blood Count 10.1 10^3/uL (4.0-10.0)
[2022-02-13 13:56] LABS: Anion Gap 13.7 (5-19); Blood Urea Nitrogen 11 mg/dL (8-23); Calcium 8.9 mg/dL (8.5-10.5); Carbon Dioxide 26 mmol/L (22-29); Chloride 105 mmol/L (98-107); Glucose 103 mg/dL (65-115); Osmolality Calculated 292 mOsm/kg (285-295); Potassium 3.7 mmol/L (3.5-5.1); Sodium 141 mmol/L (136-145)
[2022-02-14] VITALS (15 sets, daily range): BP systolic 119–195; BP diastolic 53–83; PULSE 62–82; RESP 14–28; TEMP 36.2–36.8; O2SAT 90–100
--- NOTE | 2022-02-14 06:07 | W.PM.OPSUD ---
Surgery/Procedure H&P Update DATE OF PROCEDURE: February 14, 2022 DATE H&P PERFORMED: 02/10/22 H&P UPDATE INFORMATION: I have reviewed H&P completed within last 30 days, I have examined patient prior to procedure and Changes to prior documentation as noted here (May require ICU post operative depends on the course of surgery. Pathology reviewed with the pathology reviewed with the patient) PREOP DIAGNOSIS: Colon mass/cholelithiasis PRIMARY INDICATION FOR PROCEDURE: Pathology ; .? Colon, cecum mass , biopsy: ? 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 ? Necrotic background with acute inflammation. ? MMR studies have been performed and will be reported separately. PLANNED PROCEDURE: Operation Date: 02/14/22 07:00 Proposed Procedures p lap poss open right hemicolectomy 55889,85871,R10.9, K63.89 needs SKYTRON BED(Right) - Gera Pineda MD s Laparoscopic Cholecystectomy(Not Applicable) - Gera Pineda MD
--- NOTE | 2022-02-14 06:38 | P.ANESUD_ITS ---
Pre-Anesthetic Update Pre-Anesthetic Assessment: Date of Surgery/Procedure: 02/14/22 Preop Apurva gnosis: Colon mass/cholelithiasis Proposed Procedure: Operation Date: 02/14/22 07:00 Proposed Procedures p lap poss open right hemicolectomy 41070,13563,R10.9, K63.89 needs SKYTRON BED(Right) - Gera Pineda MD s Laparoscopic Cholecystectomy(Not Applicable) - Gera Pineda MD Any changes to Pre-Anesthetic Assessment?: No Last Intake: Intake Last Liquid Date 02/13/22 Last Liquid Time 19:00 Last Solid Date 02/12/22 Last Solid Time 17:00 Labs Last 48hrs: Short CBC 02/13/22 Range/Units 13:30 WBC 10.1 H (4.0-10.0) 10^3/ uL Hgb 8.9 L (11.5-15.3) g/dL Hct 31.3 L (37.0-47.0) % MCV 74.7 L (81-99) fl Plt Count 257 (130-400) 10^3/c mm Neut % (Auto) 68.8 % Neut # (Auto) 6.97 (1.8-7.7) 10^3/u L BMP 02/13/22 13:30 Sodium 141 Potassium 3.7 Chloride 105 Carbon Dioxide 26 BUN 11 Creatinine 0.7 Glucose 103 Calcium 8.9 Vitals: Temperature 98.3 F 02/14/22 06:17 Temperature Source Temporal Artery S can 02/14/22 06:17 Pulse Rate 82 02/14/22 06:17 Respiratory Rate 18 02/14/22 06:17 Blood Pressure 195/83 02/14/22 06:17 Blood Pressure Ana n 120 02/14/22 06:17 Pulse Oximetry 98 02/14/22 06:17 Oxygen Delivery Me thod 02/14/22 06:26 Exam: Pre-Anes Outpt Exam: alert, oriented x 3, clear to auscultation bilat erally and regular rate & rhythm Additional Exam Findings (including area of procedure): murmur Cardiac Studies: Echocardiogram 02/08/22
[2022-02-14] MEDS: acetaminophen 1,000 MG/100 ML PIGGYBACK 400 MG IV ×3 (06:47→20:46)
[2022-02-14] MEDS: sodium chloride 0.9% 1,000 ML 30 ML IV (06:48)
[2022-02-14] MEDS: heparin 5,000 unit/mL INJ 1 mL 3000 UNIT SUBCUT (06:49)
[2022-02-14 06:51] LABS: Basophils # 0.1 10^3/uL (0.0-0.1); Eosinophils # 0.4 10^3/uL (0.0-0.8); Eosinophils % 3.9 %; Hematocrit 32.6 % (37.0-47.0); Hemoglobin 9.5 g/dL (11.5-15.3); Lymphocytes # 1.9 10^3/uL (0.8-4.8); Lymphocytes % 21.6 %; Mean Corpuscular HGB Conc 29.1 g/dL (30.0-36.0); Mean Corpuscular Hemoglobin 21.8 pg (28.0-34.0); Mean Corpuscular Volume 74.8 fl (81-99); Mean Platelet Volume 11.4 fL (7.4-10.4); Monocytes # 0.7 10^3/uL (0.2-0.9); Monocytes % 8.3 %; Neutrophils # 5.71 10^3/uL (1.8-7.7); Neutrophils % 64.4 %; Nucleated Red Blood Cells % 0 %; Platelet Count 301 10^3/cmm (130-400); Red Blood Count 4.36 10^6/uL (4.1-5.3); Red Cell Distribution Width 27.9 % (12.1-15.1); White Blood Count 8.9 10^3/uL (4.0-10.0)
[2022-02-14] MEDS: ciprofloxacin 400 MG/200 ML PREMIX 200 MG IV ×2 (07:00→19:02)
[2022-02-14] MEDS: metroNIDAZOLE IV 500 MG/100 ML PREMIX 100 MG IV ×3 (07:20→22:01)
[2022-02-14] MEDS: sodium chloride 0.9% 50 ML (07:45)
--- NOTE | 2022-02-14 07:50 | SUR.OPER ---
family updated of surgical status
--- NOTE | 2022-02-14 08:54 | SUR.OPER ---
family updated of surgical status
--- NOTE | 2022-02-14 09:53 | SUR.OPER ---
family updated of surgical status
--- NOTE | 2022-02-14 10:55 | SUR.OPER ---
family updated of surgical status
--- NOTE | 2022-02-14 11:58 | SUR.OPER ---
family updated of surgical status
--- NOTE | 2022-02-14 12:31 | P.OP_ITS ---
Operative Report Date of procedure: February 14, 2022 Pre-op diagnosis: Preop Diagnosis Colon mass/cholelithiasis Procedure done: Laparoscopic extended right hemicolectomy with ileocolic anastomosis Laparoscopic cholecystectomy Implants: Surgicel at the gallbladder fossa Specimens removed/disposition: Extended right hemicolectomy with sutures marked proximal Gallbladder and contents Staple line Surgeon: Gera Pineda MD Environmental Services Lead: Surgical gavin Barron and Theodore Circulating nurse Nicky Anesthesia: General (Dr. Richard Obando and YAMILE Donis) Estimated blood loss (mL): 25 IV fluids (mL): 1,200 IV fluids: 60 mL 25% albumin Urine output: 50 cc Procedure: Patient was identified in the holding area,then was was taken to the operating room and placed in a supine position under general anesthesia Time-out was done verifying the patient's name/date of /planned procedure and destination after the procedure, all were in agreement. SCDs confirmed to be functioning, preoperative antibiotics administered per protocol, and beta jenn protocol was confirmed. Heparin subcutaneous was given as prophylactic prior to surgery. All pressure points were padded and patient was appropriately secured to the table. Left arm was tucked. A Carlos catheter was placed and the abdomen was prepped and draped in a sterile manner. A 2 cm midline supraumbilical incision was made and using open Monk trocar technique was placed and 15 mm of pneumoperitoneum was created. 10 mm 0 degree scope was introduced was no evidence of bleeding or injury. The scope was then switched to a 10 mm 30? scope A 5 mm port was placed in the left lower quadrant and another 5 mm port was placed in the left upper quadrant. Liver showed no evidence of metastatic disease and there was no evidence of carcinomatosis or ascites. The patient was placed in Trendelenburg position and steep tilt to the left raheem cing the small bowel in the left side within the peritoneal cavity and the transverse colon was retracted superiorly. The cecum was retracted laterally and the tenting of the ileocolic pedicle was noted. Patient was noticed to have thick omentum with excess fatty tissues. The peritoneum overlying the pedicle was opened and a window created posterior to the pedicle just lateral to the third portion of the duodenum. Dissection was carried superiorly lateral to the duodenum along the avascular plane. Using Enseal device. I decided to switch the left upper quadrant 5 m trocar to 12 mm trocar to facilitate using the 10 mm 30 degree scope from different angles. I skeletonized the ileocolic pedicle then a vascular load 45 mm was applied towards the SMA . The avascular plane was dissected laterally towards the right paracolic gutter and superiorly towards the hepatic flexure.The transverse mesocolon was divided using Enseal device and this was continued medially. Noticed that there is mass encompassing the proximal transverse colon with a thickened started mesentery with lymphadenopathy. The right branch of middle colic vessels were skeletonized and divided with another 45 mm white load was applied. The anterior leaflet of the greater omentum was divided near the midpoint of the transverse colon to enter the lesser sac. The greater omentum was divided using Enseal device and the hepatic flexure was taken down. The dissection was carried along the line of Toldt until the ascending colon and down to ileum to completely free it up. There were some adhesions towards the terminal ileum were taken down as well.after injection of methylene blue there was no spillage or indication of right ureteric injury.The mesentery of the terminal ileum was divided using Enseal device. Control of the middle colic artery and vein were done using 2-0 silk suture suture as transfixing ties when the specimen was after further dissection when the colon was retrieved out from the wound to make sure that this bulky omentum started with lymph nodes are all well dissected. To maximize lymph node basin and to secure high ligation. Noticed that the mesenteric fat was so bulky thick of the right side of the colon. Attention now was deviated towards the gallbladder component Gallbladder showed chronic calculus cholecystitis and Fatty Liver And epigastric 5 mm trocar was introduced under direct visualization, followed by 2 additional 5 mm ports on the right lateral aspect. Patient was then positioned in the head up and tilted to the left. Ratcheted forceps were introduced into the lateral most 5mm port and was applied unto the fundus of the gallbladder cephalad and using Bullet forceps the infundibulum of the gallbladder was retracted laterally. Using [place] forceps then L-hook cautery to dissect the peritoneum overlying the Calot's triangle which was then opened medially and laterally until the cystic duct and the cystic artery were skeletonized. Dissection was carried along the body of the gallbladder and after ensuring critical view of safety was identfied. Cystic duct and cystic artery where seen connected to the gallbladder. Clips were applied on the cystic duct towards the common bile duct 1 towards the gallbladder then divided is in sharp scissors, 2 clips were then applied onto the cystic artery and 1 towards the gallbladder and divided by sharp scissors. Additional traversing vessel was clipped and divided. Dissection was then carried along of the gallbladder from the gallbladder fossa using cautery and Enseal device as well as sharp dissection with heat energy. The gallbladder then was dissected out from the gallbladder fossa totally , cholecystectomy was then achieved and was placed in an Endo Catch bag and then retrieved from the left upper quadrant 12 mm trocar site under direct visualization using a 10 mm 30? scope through the Monk trocar, specimen was then passed to the circulating nurse to go for permanent pathology,irrigation and hemostasis was done to the gallbladder fossa after hemostasis was secured, final survey laparoscopy was done that showed no injuries. Suction irrigation was obtained. The pieces of Surgicel were kept in the gallbladder fossa At this point the pneumoperitoneum was released and the mobilized colon and small bowel was exteriorized through the supraumbilical incision which had been extended and a wound protector had been placed. Application of 75 mm blue load onto the terminal ileum and division well as on the mid part of transverse colon with safety margin away from the tumor ,specimen was now passed to the circulating nurse. Right extended hemicolectomy was then achieved Confirmation from pathology that the mass is removed with bulky omentum and lymp hadenopathy Interrupted 3-0 silk suture were placed to approximate the ileum to the transverse colon and enterotomies were created on the distal transverse colon and small bowel and and 75 mm blue load [place] stapler was introduced and fired creating a [id number] stapled anastomosis. There was no bleeding noted from the staple line and enterotomies were grasped and closed in 2 layer and addition al 75 mm blue load was applied and the staple line was sent for permanent pathology. The bowel continued to be viable then were reintroduced into the peritoneal cavity. At this point the GelPort was placed to have adequate sealing, pneumoperitoneum was introduced final look laparoscopy was done and irrigation followed by suction was achieved and no injuries or bleeding were detected. The left upper 12 mm trocar site was closed under direct visualization using figure of eight #1 PDS sutures Bilateral TAP (transversus abdominous plain peripheral nerve block )block using Exparel 20 mL Exparel 40 ml Normal saline 20 ml bupivacaine 0.25% 30 mL on each side injected 20 mL injected the port sites All ports were removed and there was no bleeding noted from the port sites. The midline fascia closed using PDS suture followed by thorough irrigation then skin yanira used to close the skin incision and all other trocar sites were closed by skin yanira as well. 2% lidocaine was infiltrated around the incisions. The patient is transferred to the recovery room after extubated in stable condition with a NGT and a Carlos catheter I Was present for the whole entire procedure
--- NOTE | 2022-02-14 13:38 | SUR.PHASEI ---
1255 Bilat SCDs placed on pump. Pump working
--- NOTE | 2022-02-14 13:53 | ANE.PACU2 ---
Inpatient post-anesthesia follow up: Airway intact: Yes Vital signs: Temperature 97.1 F Pulse Rate 64 Respiratory Rate 18 Blood Pressure 154/54 Pulse Oximetry 94 Oxygen Delivery Me thod Room Air Oxygen Flow Rate 6 Fraction of Inspir ed Oxygen Hydration adequate: Yes Nausea and vomiting: No Pain level: 1 Mental status: Baseline
[2022-02-14] MEDS: sodium chloride 0.9% 1,000 ML 100 ML IV (15:40)
--- NOTE | 2022-02-14 16:08 | PM.CONSULT ---
Providers/Reason For Consult Consulting Physician/Specialty*: Frase/Hosptialist Reason for Consult*: Hypertension, post op co-management Requesting Physician: Dr Pineda Attending Physician: Gera Pineda MD Primary Care Provider: Shadi Mcnally DO History of Present Illness History of Present Illness Celine Cabrera is a 76 year old female who presented to [facility] on the day of admission for surgical intervention by Dr. Pineda after colonoscopy last week revealed adenocarcinoma. She had presented on February 08 with severe dyspnea on exertion and chest pain that have been progressively worsening over several months. She was found to have a hemoglobin of 6. She also had evidence of demand ischemia. She received transfusion of 2 units of packed red blood cells and underwent EGD and colonoscopy. EGD showed chronic gastritis without any notable bleeding however colonoscopy showed a mass in the colon with stigmata of bleeding. Mass was located near the hepatic flexure. This was biopsied and came back showing moderately to poorly differentiated adenocarcinoma. CEA level was checked and was at 6.9 (range 0.0-4.7). Mrs. Cabrera underwent right hemicolectomy with ileocolic anastomosis and cholecystectomy today. Estimated blood loss was 25 mL. She tolerated surgery well. She was found to be quite hypertensive last week and was started on amlodipine. Hospitalist were consulted for management of hypertension and overall comanagement postoperatively. In talking with Mrs. Cabrera she has had what sounds like whitecoat hypertension for many years. She has never required treatment for her blood pressures. She was afraid that she was having a heart attack last week when she first presented due to the degree of shortness of breath and chest discomfort she was experiencing. Blood pressures were as high as 190s over 70s. She was started on 5 mg of amlodipine daily with plan to keep a log of her blood pressures and follow-up with primary care provider. She reports that walking into surgery today she did not get short of breath or have any chest discomfort and felt like she could breathe easier. She did have COVID in October of this year and for a time thought she was experiencing long COVID symptoms. In retrospect symptoms were likely related to progressive anemia. She has a longstanding history of intermittent asthma. It has been mild persistent classification for some time. She had been taking a daily aspirin but stopped it approximately 2 weeks ago. Postoperatively she is having some nausea. She experienced some dry heaves very briefly while I was in the room. She reports pain is tolerable. She has some throat discomfort, a dry mouth and her left hand is numb. Denies the hand being numb prior to surgery. No numbness in the arm beyond the hand. Able to mobile therapist equally and denies any other paresthesias. Not currently feeling short of breath but is having intermittent cough. Used incentive spirometer between last visit and this one. Review of Systems Const: Reports: change in weight (Weight loss over the last few months); Denies: fever(s) ENMT: Reports: throat pain (Postoperatively) and nasal congestion (With allergy symptoms) Card: Reports: chest pain (Last week when short of breath; none today when walking to hospital), palpitations (Same as for chest pain, none today) and dyspnea on exertion (Severe last week, none today) Resp: Reports: productive cough (Intermittently, more notable after surgery) GI: Reports: abdominal pain (Appropriate postoperative pain), nausea (Postoperative ), vomiting (Postoperative) and other (Had full colon prep x2 in the last week) : Denies: difficulty voiding Musc: Reports: other (Nothing acute ) Skin/Breast: Denies: pruritus Neuro: Reports: numbness in extremities (Left hand postoperatively); Denies: weakness in extremities James/Lymph: Denies: easy bleeding Medications/Allergies Home Medications Medication Instructions Recorded Confirmed Last Taken Type fexofenadine 60 mg tablet 60 mg PO DAILY PRN Allergy Symptoms 02/01/22 02/13/22 02/07/22 History levalbuterol tartrate 45 2 inh inhalation Q6H #15 grams 02/01/22 02/13/22 02/08/22 Rx mcg/actuation aerosol inhaler triprolidine 1.25 mg-phenyleph 5 20 ml PO Q4H PRN Cough 02/01/22 02/13/22 02/07/22 History mg-DM 10 mg-acetamin 325 mg/10mL oral (Mucinex Nightshift Cold-Flu Clr) aspirin 81 mg tablet,delayed 81 mg PO DAILY 02/08/22 02/13/22 02/07/22 History release amlodipine 5 mg tablet 5 mg PO DAILY #30 tabs 02/11/22 02/14/22 02/14/22 Rx ferrous gluconate 324 mg (37.5 mg 324 mg PO BID #60 tabs 02/11/22 02/14/22 Unknown Rx iron) tablet pantoprazole 40 mg tablet,delayed 40 mg PO Q12H 10 days #20 tabs 02/11/22 02/13/22 Unknown Rx release (Protonix) Allergies Allergy/AdvReac Type Severity Reaction Status Date / Time adhesive tape Allergy ALGY-Rash Verified 02/14/22 06:13 codeine Allergy Vomit Verified 02/13/22 12:50 penicillin G Allergy Rash Verified 02/13/22 12:50 Current Medications Generic Name Dose Route Start Last Admin Trade Name Tristonq PRN Reason Stop Dose Admin Sodium Chloride 1,000 mls @ 100 mls/hr 02/14/22 12:45 02/14/22 15:40 Sodium Chloride 0.9% IV 100 mls/hr .Q10H SURI Administration Acetaminophen 1,000 mg in 100 mls @ 400 mls/hr 02/14/22 14:30 02/14/22 15:40 Acetaminophen IV 02/15/22 06:44 400 mls/hr Q8H SURI Administration PFSH Acute PFSH: Medical History (Updated 02/14/22 @ 18:50 by Serenity Alfaro MD) Adverse effect of albuterol Breast cancer COVID-19 (10/2021) Demand ischemia of myocardium in setting of severe anemia (Hgb 6) in 02/2022 Gastritis History of echocardiogram 02/09/2022 EF 65-70%, no wall motion abnormalities, normal diastolic and systolic function, no valve abnormalities History of malignant melanoma Hypertension White coat hypertension, no medical treatment prior to 02/2022 Mild persistent asthma Surgical History (Updated 02/14/22 @ 16:33 by Serenity Alfaro MD) H/O mastectomy with breast reconstruction History of appendectomy History of colonoscopy 02/10/2022 mass at distal ascending colon/hepatic flexure History of esophagogastroduodenoscopy (EGD) 02/10/2022 chronic gastritis without bleeding History of hysterectomy History of tonsillectomy Family History (Updated 02/14/22 @ 17:20 by Serenity Alfaro MD) Grandmother Cancer Paternal--breast Mother Hypertension Stroke Father Lung disease Denies family history of Diabetes CAD (coronary artery disease) Clotting disorder Dementia Hyperlipidemia Chronic kidney disease (CKD) Anesthesia complication Bleeding disorder Social History (Updated 02/14/22 @ 17:21 by Serenity Alfaro MD) Smoking and tobacco status: former smoker Alcohol intake: current Alcohol intake frequency: holidays/special occasions only Substance/Drug Use: never Caregiver/support person: No Lives independently: Yes Household members: spouse Marital status: History of recent travel: No Vitals/I&O/Wt Last Vital Signs Temp 97.1 F L 02/14/22 13:36 Pulse 72 02/14/22 15:34 Resp 18 02/14/22 15:34 BP 154/54 02/14/22 13:36 Pulse Ox 93 02/14/22 15:34 O2 Del Method 02/14/22 15:34 O2 Flow Rate 6 02/14/22 13:03 02/14/22 02/14/22 02/14/22 06:59 14:59 22:59 Intake Total 650 / 650 Output Total 120 / 120 Balance 530 / 530 Weight last 48 hrs Weight 113.398 kg Physical Exam Narrative: Constitutional: Awake and alert, initially but cooperative and able to provide history HEENT: Normocephalic, pupils are equally reactive, extraocular movements intact, dry mucous membranes, no posterior oropharynx lesions noted Neck: Supple Respiratory: Clear to auscultation bilateral without any rales rhonchi or wheezes noted although chest expansion is limited a bit currently to pain, intermittent cough able to get a little bit up Cardiovascular: Regular rate and rhythm, 2/6 murmur noted, 1+ and equal pulses x4 Abdomen: Abdominal binder in place, tail end of dressing that is visible is clean dry and intact, no bowel sounds : Carlos catheter in place Extremities: No pitting edema, SCDs on, no calf tenderness Skin: Dry, pale compared to the last time I saw her Neuro: Speech clear, face symmetric, handgrip is slightly less in the left hand although limited a bit by pulse oximetry and IV in that arm, can feel me touching her fingers and hand but not normal feeling compared to the right, does not extend up the arm along the pinky or the thumb in any type of pattern, foot pumps equal bilaterally Psych: Normal affect Urinary Catheter Management: Carlos Latex: Cath Placed During This Visit: yes Urinary Catheter Date of Insertion: 02/14/22 Urinary Catheter Time of Insertion: 07:30 Data : 02/14/22 06:28 10/10/22 13:30 A&P Assessment and plan (1) S/P laparoscopic colectomy: POD #0 Secondary to finding of hepatic flexure mass consistent with adenocarcinoma, CEA 6.9 Postoperative nausea, indicates has had issues with significant nausea and vomiting postanesthesia in the past Pain control currently adequate (2) S/P laparoscopic cholecystectomy: POD#0 Secondary to cholelithiasis (3) Hypertension: Recently started on amlodipine Historically has had whitecoat hypertension by description and not previously required treatment Qualifiers: Hypertension type: unspecified Qualified Code(s): I10 - Essential (primary) hypertension (4) Iron deficiency anemia: S/P 2 units pRBCs last week for Hgb of 6.1, started on iron replacement last week Stable, minimal blood loss noted perioperatively Qualifiers: Iron deficiency anemia type: chronic blood loss Qualified Code(s): D50.0 - Iron deficiency anemia secondary to blood loss (chronic) (5) Mild persistent asthma: On levalbuterol due to adverse effect from regular albuterol, takes fexofenadine and cough medication as needed Not currently acute Qualifiers: Asthma complication type: uncomplicated Qualified Code(s): J45.30 - Mild persistent asthma, uncomplicated (6) Elevated troponin: Last week in setting of severe anemia, 6 hr delta troponin about 25, felt to be due to demand ischemia, transient ekg changes and echo with normal EF, normal systolic and diastolic function and no wall motion abnormalities; screening labs on 02/09/2022 with low HDL 36, LDL 106, VLDL 17, tchol 159, A1c 5.0. No current chest pain or no current chest pain or difficulty breathing (7) Chronic gastritis without bleeding: Recently started on PPI Qualifiers: Gastritis type: other gastritis Qualified Code(s): K29.50 - Unspecified chronic gastritis without bleeding (8) BMI 40.0-44.9, adult: Plan Thank you very much for consultation For now we will monitor blood pressures Metoprolol IV as needed has been ordered with parameters specified; can reinitiate amlodipine as needed postoperatively when tolerating oral intake Monitor for signs of blood loss or hemodynamic changes As needed Xopenex for asthma Home PPI via IV for now Hold oral iron EKG in the morning We will change fluids to half-normal saline after current bag with plan to transition to maintenance IV fluids tomorrow Diet advance as per surgery with return of flatus Incentive spirometry encouraged Pain control as per surgery Will add Phenergan on top of Zofran for postoperative nausea and vomiting Postoperative antibiotics as per surgery Carlos catheter is in place with plan to come out tomorrow SCDs and subcu heparin for DVT prophylaxis are ordered and in place Out of bed/ambulation importance discussed with patient Findings, concerns and plans were discussed with patient as well as her . While I was in the room both of her children called. Both had multiple questions regarding current condition, surgery and postoperative status and future plans. Attempted to answer all questions to the best of my knowledge at this time. Reviewed with patient importance of outpatient follow-up with primary care provider to continue evaluate her blood pressures and need for treatment, as well as addressing low HDL within her acceptable healthcare goals Supportive care otherwise Full code We will follow along while patient is hospitalized and address medical issues as needed Consult Attestations Medical Necessity Statement: As per general surgery. Stay anticipated to be greater than 2 midnights for usual postoperative care after colectomy. Coding Level of Care Code Acute Education Coordinator for [facility] Fwd Diagnoses S/P laparoscopic colectomy Z90.49 S/P laparoscopic cholecystectomy Z90.49 Hypertension I10 Hypertension type: unspecified Iron deficiency anemia D50.0 Iron deficiency anemia type: chronic blood loss Mild persistent asthma J45.30 Asthma complication type: uncomplicated Elevated troponin R77.8 Chronic gastritis without bleeding K29.50 Gastritis type: other gastritis BMI 40.0-44.9, adult Z68.41
[2022-02-14] MEDS: ondansetron 2 mg/ML SDV 2 mL 4 MG IVP (17:47)
[2022-02-14] MEDS: promethazine 25 mg/mL SDV 1 mL 12.5 MG IM (18:05)
[2022-02-14] MEDS: pantoprazole 40 mg SDV IVP (19:35)
[2022-02-14] MEDS: sodium chlor 0.9% + KCl 20 mEq 20 MEQ/1,000 ML BAG 100 MEQ IV (19:35)
[2022-02-15 00:46] VITALS: BP 116/64; PULSE 79; RESP 20; TEMP 36.6; O2SAT 93
[2022-02-15 03:13] LABS: Hematocrit 31.8 % (37.0-47.0); Hemoglobin 8.3 g/dL (11.5-15.3)
--- NOTE | 2022-02-15 03:27 | PC.NURSE ---
Patient received IV Protonix at 1900. Patient is currently asking for Pepcid by name. Dr. Rodríguez notified. Ordered to give dose of Protonix now.
[2022-02-15] MEDS: pantoprazole 40 mg SDV IVP ×2 (03:30→18:11)
[2022-02-15 04:49] VITALS: BP 130/63; PULSE 80; RESP 22; TEMP 36.4; O2SAT 87
[2022-02-15] MEDS: dextrose 5%-ns + KCl 20 20 MEQ/1,000 ML BAG 100 MEQ IV (05:15)
[2022-02-15] MEDS: acetaminophen 1,000 MG/100 ML PIGGYBACK 400 MG IV (05:16)
[2022-02-15] MEDS: heparin 5,000 unit/mL INJ 1 mL 5000 UNIT SUBCUT ×2 (05:16→18:11)
[2022-02-15] MEDS: ciprofloxacin 400 MG/200 ML PREMIX 200 MG IV ×2 (05:16→18:11)
--- NOTE | 2022-02-15 06:29 | PC.NURSE ---
Patient asked several times throughout shift about nausea. Patient stated each time that she did not have any nausea. Patient c/o some pain throughout the night. She refused PRN Morphine. Patient stated that the pain felt like gas pain, like I need to have a BM.
--- NOTE | 2022-02-15 06:32 | PC.NURSE ---
Per lab staff, patient's blood hemolyzed. Lab staff in room to redraw at this time.
--- NOTE | 2022-02-15 06:41 | P.PN_ITS ---
Subjective Subjective: No acute events overnight, 750 urine output. Stable vital signs. Patient started passing some gas Medications: Reviewed: Yes Vitals/I&O/Wt Last Vital Signs Temp 97.6 F 02/15/22 04:49 Pulse 80 02/15/22 04:49 Resp 22 H 02/15/22 04:49 BP 130/63 02/15/22 04:49 Pulse Ox 87 L 02/15/22 04:49 O2 Del Method 02/14/22 21:25 O2 Flow Rate 6 02/14/22 13:03 02/14/22 02/14/22 02/15/22 14:59 22:59 06:59 Intake Total 650 / 650 900 / 1550 1500 / 3050 Output Total 120 / 120 750 / 870 Balance 530 / 530 900 / 1430 750 / 2180 Weight last 48 hrs Weight 250 lb Physical Exam Narrative: Patient is conscious alert oriented X3 No apparent distress BMI 40.4 Head and neck examination PERRLA no masses no cervical lymphadenopathy no jaundice Cardiac examination audible S1-S2 no murmurs no gallops no arrhythmias Chest is clear bilateral,abscence of Rhonchi or wheezes,no surgical emphysema Precordial murmur Abdomen nontender except slightly at the incision site nondistended soft no organomegaly guarding or rigidity/no signs of peritonitis. Dressing in place without complication. Bowel sounds are hypoactive Carlos catheter in place with green-tinged urine Urinary Catheter Management: Carlos Latex: Cath Placed During This Visit: yes Reason for Continuing Indwelling Catheter: Perioperative Use in Selected Surgeries Urinary Catheter Date of Insertion: 02/14/22 Urinary Catheter Time of Insertion: 07:30 Data : 02/15/22 02:55 02/15/22 06:22 A&P Assessment and plan (1) S/P laparoscopic colectomy: Assessment 76 years old female patient status post laparoscopic right extended hemicolectomy for colon cancer and laparoscopic cholecystectomy 02/14/2022. Plan We will start the patient slowly on popsicles Out of bed to the chair(done today by assistance of nursing staff and myself) Physical therapy consultation for evaluation We will follow on pathology report Abdominal binder for comfort Strict I's and O's continue pharmacologic DVT prophylaxis Will maintain Carlos catheter for now for accurate urine output measurement Incentive spirometer every hour I appreciate hospitalist's input Assurance and education All questions have been answered and all concerns have been addressed to patient's satisfaction. Attestations Medical Necessity Statement*: patient requiring inpatient hospitalization for perioperative care Time Spent in Patient Care: 16 - 35 minutes Coding Level of Care Code Acute Radiology Interventional Physician for Chg Fwd Diagnoses S/P laparoscopic colectomy Z90.49
[2022-02-15 06:48] LABS: Anion Gap 15.1 (5-19); Blood Urea Nitrogen 9 mg/dL (8-23); Calcium 8.6 mg/dL (8.5-10.5); Carbon Dioxide 22 mmol/L (22-29); Chloride 108 mmol/L (98-107); Glucose 148 mg/dL (65-115); Osmolality Calculated 293 mOsm/kg (285-295); Potassium 4.1 mmol/L (3.5-5.1); Sodium 141 mmol/L (136-145)
--- NOTE | 2022-02-15 07:03 | PC.NURSE ---
Dr. Hidalgo ordered for patient to have Popsicles.
[2022-02-15 08:28] VITALS: BP 136/69; PULSE 73; RESP 16; TEMP 36.8; O2SAT 94
--- NOTE | 2022-02-15 09:05 | PC.CHAP ---
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 [] Patient/Family/Request visit [] Outpatient visit [] Follow-up visit [] Physician referral [] Code/Alert [x] Routine visit [] Staff referral [] Actively dying [] Patient sleeping [] Family support [] [] Out of room [] Palliative care [] [] Receiving care in room [] Pre-surgical visit [] Trauma [] Long length of stay [] ICU visit [] Other: Relational/Emotional Strength [] Patient feels connected with others/family/visitors/staff [] Distress [] Loneliness/isolation [] Abandonment Spirituality of Patient [] Person of Louise [] Attends Scientology of their Louise [] Believes in Prayer [] Reads Bible or Worship materials [] There are Spiritual issues to be addressed Manager Portable Interventions [] Prayer [] Active listening [] Non-anxious presence [] Spiritual/emotional support [] Crisis/trauma care [] Spiritual counseling [] Bereavement support [] Provided bereavement packet [] Provided Bible/devotional materials [] Provided toy/stuffed animal, coloring book to patient or family member [] Provided Communion [] Anointing/[place] [] Salvation [] Completed spiritual assessment [] Other: Impact on Illness or Injury [] Angry [] Fearful [] Anxious [] Often cries [] Exhaustion [] Unable to work [] Unable to attend jain [] Unable to walk/stand [] Unable to read [] Unable to drive [] Unable to eat/drink [] Unable to sleep [] Unable to be with family [] Patient intubated [] Other: Summary Pt was sitting in chair and appeared very sleepy. Stated she had not gotten much sleep and declined a visit at this time. Time spent with patient 2m
--- NOTE | 2022-02-15 10:19 | ECG_ITS ---
[facility] Test Date: 2022-02-15 Pat Name: Celine Cabrera Department: Room: 264 Gender: Female Java Web User Interface Developer: : 1945 Requested By: Serenity Alfaro Order Number: [id number] Shima MD: Katia Cooley M.D. Measurements Intervals [place] Rate: 79 P: 43 OK: 168 QRS: 5 QRSD: 88 T: 25 QT: 335 QTc: 386 Interpretive Statements SINUS RHYTHM NONSPECIFIC T-WAVE ABNORMALITY Compared to ECG 02/08/2022 23:36:37 T-wave abnormality now present Electronically Signed On 02-16-2022 13:03:44 CDT by Katia Cooley M.D. [email or web address] ([email or web address] [email or web address] Have [id number]
[2022-02-15 10:22] VITALS: PULSE 76; RESP 18; O2SAT 96
--- NOTE | 2022-02-15 12:18 | USCV_ITS ---
Celine Cabrera Age: 76 Gender: F : 1945 Exam Date: 02/15/2022 14:01 Ordering Phys: Nia Conley MD Technologist: Wendy Stapleton Exam Location: [facility] – [place] Indication: BUE PAIN AND SWELLING HISTORY: Upper extremity pain. Upper extremity swelling. PROCEDURES: Venous duplex imaging was performed in bilateral upper extremities. The following venous structures were evaluated: internal jugular vein, subclavian vein, axillary vein, and brachial veins. In addition, the basilic vein, cephalic vein, radial vein, and ulnar vein. Serial compression, augmentation maneuvers, and spectral Doppler flow evaluation were performed. FINDINGS: No evidence of deep vein thrombosis or superficial thrombophlebitis in the right upper extremity. No evidence of deep vein thrombosis or superficial thrombophlebitis in the left upper extremity. Left Cephalic vein Non-compress throughout the upper extremity. CONCLUSIONS Acute left cephalic vein thrombophlebitis. No upper extremity DVT, bilateral. Dr. Deedee Ambriz DO (Electronically Signed) Final Date: 15 February 2022 15:58 S
--- NOTE | 2022-02-15 14:22 | PM.PN ---
Subjective Subjective: seen this am. at bedside she states her left arm is somewhat swollen. she had an IV placed there last week when she came for colonoscopy. she says it has been worsening since then. i explained to patient that we will do US however if there is DVT she may not be candidate for AC due to recent surgery. patient understands seen by gen surg this AM. Started on popsicles Vitals/I&O/Wt Last Vital Signs Temp 98.2 F 02/15/22 08:28 Pulse 76 02/15/22 10:22 Resp 18 02/15/22 10:22 BP 136/69 02/15/22 08:28 Pulse Ox 96 02/15/22 10:22 O2 Del Method 02/15/22 10:22 O2 Flow Rate 6 02/14/22 13:03 02/14/22 02/15/22 02/15/22 22:59 06:59 14:59 Intake Total 900 / 1550 1500 / 3050 Output Total 750 / 870 550 / 550 Balance 900 / 1430 750 / 2180 -550 / -550 Physical Exam Narrative: Patient is conscious alert oriented X3 No apparent distress BMI 40.4 Head and neck examination PERRLA no masses no cervical lymphadenopathy no jaundice Cardiac examination audible S1-S2 no murmurs no gallops no arrhythmias Chest is clear bilateral,abscence of Rhonchi or wheezes,no surgical emphysema Abdomen nontender except slightly at the incision site nondistended soft no organomegaly guarding or rigidity/no signs of peritonitis. Dressing in place without complication. Bowel sounds are hypoactive Carlos catheter in place with green-tinged urine Urinary Catheter Management: Carlos Latex: Cath Placed During This Visit: yes, but has since been removed by the nurse Reason for Continuing Indwelling Catheter: Perioperative Use in Selected Surgeries Urinary Catheter Date of Insertion: 02/14/22 Urinary Catheter Time of Insertion: 07:30 Date Urinary Catheter Removed: 02/15/22 Time Urinary Catheter Discontinued: 12:54 Data : 02/15/22 02:55 02/15/22 06:22 A&P Assessment and plan (1) S/P laparoscopic colectomy: POD #1 Secondary to finding of hepatic flexure mass consistent with adenocarcinoma, CEA 6.9 Postoperative nausea, indicates has had issues with significant nausea and vomiting postanesthesia in the past Pain control currently adequate Nausea well controlled now. Has started popsicles today (2) S/P laparoscopic cholecystectomy: POD#1 Secondary to cholelithiasis (3) Hypertension: Recently started on amlodipine Historically has had whitecoat hypertension by description and not previously required treatment Qualifiers: Hypertension type: unspecified Qualified Code(s): I10 - Essential (primary) hypertension (4) Iron deficiency anemia: S/P 2 units pRBCs last week for Hgb of 6.1, started on iron replacement last week Stable, minimal blood loss noted perioperatively Hb stable today. 8.3 Qualifiers: Iron deficiency anemia type: chronic blood loss Qualified Code(s): D50.0 - Iron deficiency anemia secondary to blood loss (chronic) (5) Mild persistent asthma: On levalbuterol due to adverse effect from regular albuterol, takes fexofenadine and cough medication as needed Not currently acute Qualifiers: Asthma complication type: uncomplicated Qualified Code(s): J45.30 - Mild persistent asthma, uncomplicated (6) Elevated troponin: Last week in setting of severe anemia, 6 hr delta troponin about 25, felt to be due to demand ischemia, transient ekg changes and echo with normal EF, normal systolic and diastolic function and no wall motion abnormalities; screening labs on 02/09/2022 with low HDL 36, LDL 106, VLDL 17, tchol 159, A1c 5.0. No current chest pain or no current chest pain or difficulty breathing (7) Chronic gastritis without bleeding: Recently started on PPI Qualifiers: Gastritis type: other gastritis Qualified Code(s): K29.50 - Unspecified chronic gastritis without bleeding (8) BMI 40.0-44.9, adult: Plan check b/l UE US to r/o DVT Warm compresses to the area. RN updated IV fluids to 50 cc/hr. Continue diet as per gen surg recommendations Out of bed to chair PT/OT to start Home PPI Xopenex for asthma IS encouraged. Pt doing well. Continue post op abx as per gen surgery. Zofran for nausea Pain control as per surgery DVT PPX: lovenox We will follow along while patient is hospitalized and address medical issues as needed Attestations Medical Necessity Statement*: Defer to primary team Coding Level of Care Code Acute Parasitology Teacher for Chg Fwd Diagnoses S/P laparoscopic colectomy Z90.49 S/P laparoscopic cholecystectomy Z90.49 Hypertension I10 Hypertension type: unspecified Iron deficiency anemia D50.0 Iron deficiency anemia type: chronic blood loss Mild persistent asthma J45.30 Asthma complication type: uncomplicated Elevated troponin R77.8 Chronic gastritis without bleeding K29.50 Gastritis type: other gastritis BMI 40.0-44.9, adult Z68.41
[2022-02-15] MEDS: dextrose 5%-ns + KCl 20 20 MEQ/1,000 ML BAG 50 MEQ IV (15:45)
[2022-02-15 20:00] VITALS: BP 162/64; PULSE 85; RESP 17; TEMP 36.9; O2SAT 92
[2022-02-15 21:25] VITALS: PULSE 76; RESP 18; O2SAT 94
[2022-02-16] VITALS (7 sets, daily range): BP systolic 146–181; BP diastolic 66–73; PULSE 81–90; RESP 16; TEMP 37–37.1; O2SAT 92–96
[2022-02-16] MEDS: ciprofloxacin 400 MG/200 ML PREMIX 200 MG IV ×2 (05:28→16:55)
[2022-02-16] MEDS: heparin 5,000 unit/mL INJ 1 mL 5000 UNIT SUBCUT ×2 (05:28→16:55)
[2022-02-16] MEDS: pantoprazole 40 mg SDV IVP ×2 (06:04→16:55)
--- NOTE | 2022-02-16 06:43 | PM.PN ---
Subjective Subjective: Patient continues to pass gas but little. Urine output is marginal. Patient was able to void urine after the Carlos catheter was taken out. Stable vital signs. Ultrasound of the left upper extremity was done per hospitalist service with concern of potential left upper extremity DVT and that was negative. Vitals/I&O/Wt Last Vital Signs Temp 98.7 F 02/16/22 04:00 Pulse 85 02/16/22 04:00 Resp 16 02/16/22 04:00 BP 150/73 02/16/22 04:00 Pulse Ox 92 02/16/22 04:00 O2 Del Method 02/16/22 04:00 O2 Flow Rate 6 02/14/22 13:03 02/15/22 02/15/22 02/16/22 14:59 22:59 06:59 Intake Total 1200 / 1200 Output Total 550 / 550 150 / 700 600 / 1300 Balance -550 / -550 1050 / 500 -600 / -100 Physical Exam Narrative: Patient is conscious alert oriented X3 No apparent distress BMI 40.4 Head and neck examination PERRLA no masses no cervical lymphadenopathy no jaundice Cardiac examination audible S1-S2 no murmurs no gallops no arrhythmias Chest is clear bilateral,abscence of Rhonchi or wheezes,no surgical emphysema Precordial murmur Abdomen nontender except slightly at the incision site nondistended soft no organomegaly guarding or rigidity/no signs of peritonitis. Dressing was taken down and incisions are clean dry and intact and skin yanira in place. Bowel sounds are hypoactive Urinary Catheter Management: Carlos Latex: Cath Placed During This Visit: yes, but has since been removed by the nurse Reason for Continuing Indwelling Catheter: Perioperative Use in Selected Surgeries Urinary Catheter Date of Insertion: 02/14/22 Urinary Catheter Time of Insertion: 07:30 Date Urinary Catheter Removed: 02/15/22 Time Urinary Catheter Discontinued: 12:54 Data : 02/15/22 02:55 02/15/22 06:22 A&P Assessment and plan (1) S/P laparoscopic colectomy: Assessment 76 years old female patient status post laparoscopic right extended hemicolectomy for colon cancer and laparoscopic cholecystectomy 02/14/2022. Plan Continue popsicles for now. I would like to have the patient have more passage of gas before starting her on clear liquid diet. Patient feels more comfortable on the recliner Physical therapy on board We will follow on pathology report Abdominal binder only for comfort Strict I's and O's continue pharmacologic DVT prophylaxis Incentive spirometer every hour I appreciate hospitalist's input I will defer further IV fluids management to hospitalist service Assurance and education All questions have been answered and all concerns have been addressed to patient's satisfaction. Attestations Medical Necessity Statement*: Patient requiring inpatient hospitalization passing 2 midnights for perioperative care and awaiting bowel functions Coding Level of Care Code Acute Refining Still Operator for Chg Fwd Diagnoses S/P laparoscopic colectomy Z90.49
--- NOTE | 2022-02-16 09:40 | P.PN_ITS ---
Subjective Subjective: seen this am. pt feeling better. BP reviewed. passing gas but no BM yet Vitals/I&O/Wt Last Vital Signs Temp 98.7 F 02/16/22 04:00 Pulse 89 02/16/22 14:22 Resp 16 02/16/22 04:00 BP 150/73 02/16/22 04:00 Pulse Ox 92 02/16/22 04:00 O2 Del Method 02/16/22 04:00 O2 Flow Rate 6 02/14/22 13:03 02/16/22 02/16/22 02/16/22 06:59 14:59 22:59 Intake Total 200 / 1400 1954.833 / 1954.833 Output Total 600 / 1300 Balance -400 / 100 1954.833 / 1954.833 Physical Exam Narrative: Patient is conscious alert oriented X3 No apparent distress Head and neck examination PERRLA no masses no cervical lymphadenopathy no jaundice Cardiac examination audible S1-S2 no murmurs no gallops no arrhythmias Chest is clear bilateral,abscence of Rhonchi or wheezes,no surgical emphysema Abdomen nontender except slightly at the incision site nondistended soft no organomegaly guarding or rigidity/no signs of peritonitis. Dressing in place without complication. Bowel sounds are hypoactive Urinary Catheter Management: Carlos Latex: Cath Placed During This Visit: yes, but has since been removed by the nurse Reason for Continuing Indwelling Catheter: Perioperative Use in Selected Surgeries Urinary Catheter Date of Insertion: 02/14/22 Urinary Catheter Time of Insertion: 07:30 Date Urinary Catheter Removed: 02/15/22 Time Urinary Catheter Discontinued: 12:54 Data : 02/15/22 02:55 02/15/22 06:22 A&P Assessment and plan (1) S/P laparoscopic colectomy: POD #1 Secondary to finding of hepatic flexure mass consistent with adenocarcinoma, CEA 6.9 Postoperative nausea, indicates has had issues with significant nausea and vomiting postanesthesia in the past Pain control currently adequate Nausea well controlled now. Has started popsicles Defer diet to gen surg team (2) S/P laparoscopic cholecystectomy: POD#1 Secondary to cholelithiasis (3) Hypertension: Recently started on amlodipine Historically has had whitecoat hypertension by description and not previously required treatment Qualifiers: Hypertension type: unspecified Qualified Code(s): I10 - Essential (primary) hypertension (4) Iron deficiency anemia: S/P 2 units pRBCs last week for Hgb of 6.1, started on iron replacement last week Stable, minimal blood loss noted perioperatively Hb stable today. 8.3 Qualifiers: Iron deficiency anemia type: chronic blood loss Qualified Code(s): D50.0 - Iron deficiency anemia secondary to blood loss (chronic) (5) Mild persistent asthma: On levalbuterol due to adverse effect from regular albuterol, takes fexofenadine and cough medication as needed Not currently acute Qualifiers: Asthma complication type: uncomplicated Qualified Code(s): J45.30 - Mild persistent asthma, uncomplicated (6) Elevated troponin: Last week in setting of severe anemia, 6 hr delta troponin about 25, felt to be due to demand ischemia, transient ekg changes and echo with normal EF, normal systolic and diastolic function and no wall motion abnormalities; screening labs on 02/09/2022 with low HDL 36, LDL 106, VLDL 17, tchol 159, A1c 5.0. No current chest pain or no current chest pain or difficulty breathing (7) Chronic gastritis without bleeding: Recently started on PPI Qualifiers: Gastritis type: other gastritis Qualified Code(s): K29.50 - Unspecified chronic gastritis without bleeding (8) BMI 40.0-44.9, adult: Plan b/l UE US r/o DVT Warm compresses to the area. RN updated DC IV fluids Continue diet as per gen surg recommendations Out of bed to chair PT/OT to start Home PPI Xopenex for asthma IS encouraged. Pt doing well. Continue post op abx as per gen surgery. Zofran for nausea Pain control as per surgery DVT PPX: lovenox We will follow along while patient is hospitalized and address medical issues as needed Attestations Medical Necessity Statement*: Defer to primary team Coding Level of Care Code Acute Haul Truck Driver for Chg Fwd Diagnoses S/P laparoscopic colectomy Z90.49 S/P laparoscopic cholecystectomy Z90.49 Hypertension I10 Hypertension type: unspecified Iron deficiency anemia D50.0 Iron deficiency anemia type: chronic blood loss Mild persistent asthma J45.30 Asthma complication type: uncomplicated Elevated troponin R77.8 Chronic gastritis without bleeding K29.50 Gastritis type: other gastritis BMI 40.0-44.9, adult Z68.41
[2022-02-16] MEDS: dextrose 5%-ns + KCl 20 20 MEQ/1,000 ML BAG 50 MEQ IV (09:52)
[2022-02-17] VITALS (11 sets, daily range): BP systolic 142–175; BP diastolic 66–73; PULSE 70–83; RESP 15–18; TEMP 36.8–37.3; O2SAT 93–97
[2022-02-17 04:53] LABS: Basophils # 0.1 10^3/uL (0.0-0.1); Basophils % 0.9 %; Eosinophils # 0.3 10^3/uL (0.0-0.8); Eosinophils % 3.2 %; Hemoglobin 8.2 g/dL (11.5-15.3); Lymphocytes # 1.4 10^3/uL (0.8-4.8); Lymphocytes % 17.6 %; Mean Corpuscular HGB Conc 27.3 g/dL (30.0-36.0); Mean Corpuscular Hemoglobin 21.5 pg (28.0-34.0); Mean Corpuscular Volume 78.5 fl (81-99); Mean Platelet Volume 10.9 fL (7.4-10.4); Monocytes # 0.9 10^3/uL (0.2-0.9); Neutrophils # 5.17 10^3/uL (1.8-7.7); Neutrophils % 66.8 %; Nucleated Red Blood Cells % 0 %; Platelet Count 249 10^3/cmm (130-400); Red Blood Count 3.82 10^6/uL (4.1-5.3); Red Cell Distribution Width 28.3 % (12.1-15.1); White Blood Count 7.7 10^3/uL (4.0-10.0)
[2022-02-17 05:13] LABS: Anion Gap 12.9 (5-19); Blood Urea Nitrogen 6 mg/dL (8-23); Calcium 8.7 mg/dL (8.5-10.5); Carbon Dioxide 25 mmol/L (22-29); Chloride 108 mmol/L (98-107); Glucose 111 mg/dL (65-115); Osmolality Calculated 292 mOsm/kg (285-295); Potassium 3.9 mmol/L (3.5-5.1); Sodium 142 mmol/L (136-145)
[2022-02-17] MEDS: ciprofloxacin 400 MG/200 ML PREMIX 200 MG IV (05:13)
[2022-02-17] MEDS: heparin 5,000 unit/mL INJ 1 mL 5000 UNIT SUBCUT ×2 (05:17→18:28)
[2022-02-17] MEDS: D5-NS 0.45% + KCL 20 mEq 20 MEQ/1,000 ML BAG 50 MEQ IV (06:31)
[2022-02-17] MEDS: pantoprazole 40 mg SDV IVP ×2 (06:44→18:27)
--- NOTE | 2022-02-17 06:51 | PM.PN ---
Subjective Subjective: Patient overall feels better. Less numbness of the left upper extremity. Adequate urine output. Feels rumbling more. But no more passage of gas yet. Ambulatory. Stable H&H does not require blood transfusion from surgery standpoint of view. Otherwise no acute events. Medications: Reviewed: Yes Vitals/I&O/Wt Last Vital Signs Temp 98.2 F 02/17/22 05:54 Pulse 80 02/17/22 05:54 Resp 18 02/17/22 05:54 BP 157/70 02/17/22 05:54 Pulse Ox 94 02/17/22 05:54 O2 Del Method 02/17/22 05:54 O2 Flow Rate 6 02/14/22 13:03 02/16/22 02/16/22 02/17/22 14:59 22:59 06:59 Intake Total 1955.833 / 1955.833 200 / 2155.833 1200 / 3355.833 Output Total 900 / 900 Balance 1955.833 / 1955.833 200 / 2155.833 300 / 2455.833 Physical Exam Narrative: Patient is conscious alert oriented X3 No apparent distress BMI 40.4 Head and neck examination PERRLA no masses no cervical lymphadenopathy no jaundice Cardiac examination audible S1-S2 no murmurs no gallops no arrhythmias Chest is clear bilateral,abscence of Rhonchi or wheezes,no surgical emphysema Precordial murmur Abdomen nontender except slightly at the incision site nondistended soft no organomegaly guarding or rigidity/no signs of peritonitis. Dressing was taken down and incisions are clean dry and intact and skin yanira in place. Bowel sounds are hyperactive Urinary Catheter Management: Carlos Latex: Cath Placed During This Visit: yes, but has since been removed by the nurse Reason for Continuing Indwelling Catheter: Perioperative Use in Selected Surgeries Urinary Catheter Date of Insertion: 02/14/22 Urinary Catheter Time of Insertion: 07:30 Date Urinary Catheter Removed: 02/15/22 Time Urinary Catheter Discontinued: 12:54 Data : 02/17/22 04:13 02/17/22 04:13 A&P Assessment and plan (1) S/P laparoscopic colectomy: Assessment 76 years old female patient status post laparoscopic right extended hemicolectomy for colon cancer and laparoscopic cholecystectomy 02/14/2022. Plan Awaiting bowel function No indication for blood transfusion from surgery standpoint of view Physical therapy on board Continue IV fluids at 50 mL/h We will follow on pathology report Abdominal binder only for comfort Strict I's and O's continue pharmacologic DVT prophylaxis Incentive spirometer every hour I appreciate hospitalist's input DC IV antibiotics Assurance and education All questions have been answered and all concerns have been addressed to patient's satisfaction. Attestations Medical Necessity Statement*: Patient requiring inpatient hospitalization passing 2 midnights for awaiting bowel function Coding Level of Care Code Acute Manager Pipeline for Chg Fwd Diagnoses S/P laparoscopic colectomy Z90.49
--- NOTE | 2022-02-17 11:19 | PC.SOCIAL ---
IMM Update pg 2 of IMM updated and reviewed w/ patient. Copy provided and copy dated, initialed and placed in chart.
--- NOTE | 2022-02-17 15:15 | PM.PN ---
Subjective Subjective: Doing well. Blood pressure stable. In good spirits. No acute events overnight. Labs stable. Hemoglobin stable. Vitals/I&O/Wt Last Vital Signs Temp 99.2 F 02/17/22 12:00 Pulse 79 02/17/22 14:00 Resp 16 02/17/22 12:00 BP 143/73 02/17/22 12:00 Pulse Ox 94 02/17/22 12:00 O2 Del Method 02/17/22 12:00 O2 Flow Rate 6 02/14/22 13:03 02/17/22 02/17/22 02/17/22 06:59 14:59 22:59 Intake Total 1200 / 3355.833 Output Total 900 / 900 Balance 300 / 2455.833 Physical Exam Narrative: Patient is conscious alert oriented X3 No apparent distress BMI 40.4 Head and neck examination PERRLA no masses no cervical lymphadenopathy no jaundice Cardiac examination audible S1-S2 no murmurs no gallops no arrhythmias Chest is clear bilateral,abscence of Rhonchi or wheezes,no surgical emphysema Precordial murmur Abdomen nontender except slightly at the incision site nondistended soft no organomegaly guarding or rigidity/no signs of peritonitis. Dressing was taken down and incisions are clean dry and intact and skin yanira in place. Bowel sounds are hyperactive Urinary Catheter Management: Carlos Latex: Cath Placed During This Visit: yes, but has since been removed by the nurse Reason for Continuing Indwelling Catheter: Perioperative Use in Selected Surgeries Urinary Catheter Date of Insertion: 02/14/22 Urinary Catheter Time of Insertion: 07:30 Date Urinary Catheter Removed: 02/15/22 Time Urinary Catheter Discontinued: 12:54 Data : 02/17/22 04:13 02/17/22 04:13 A&P Assessment and plan (1) S/P laparoscopic colectomy: POD #1 Secondary to finding of hepatic flexure mass consistent with adenocarcinoma, CEA 6.9 Postoperative nausea, indicates has had issues with significant nausea and vomiting postanesthesia in the past Pain control currently adequate Nausea well controlled now. Has started popsicles Defer diet to gen surg team (2) S/P laparoscopic cholecystectomy: POD#1 Secondary to cholelithiasis (3) Hypertension: Recently started on amlodipine Historically has had whitecoat hypertension by description and not previously required treatment Qualifiers: Hypertension type: unspecified Qualified Code(s): I10 - Essential (primary) hypertension (4) Iron deficiency anemia: S/P 2 units pRBCs last week for Hgb of 6.1, started on iron replacement last week Stable, minimal blood loss noted perioperatively Hb stable today. 8.3 Qualifiers: Iron deficiency anemia type: chronic blood loss Qualified Code(s): D50.0 - Iron deficiency anemia secondary to blood loss (chronic) (5) Mild persistent asthma: On levalbuterol due to adverse effect from regular albuterol, takes fexofenadine and cough medication as needed Not currently acute Qualifiers: Asthma complication type: uncomplicated Qualified Code(s): J45.30 - Mild persistent asthma, uncomplicated (6) Elevated troponin: Last week in setting of severe anemia, 6 hr delta troponin about 25, felt to be due to demand ischemia, transient ekg changes and echo with normal EF, normal systolic and diastolic function and no wall motion abnormalities; screening labs on 02/09/2022 with low HDL 36, LDL 106, VLDL 17, tchol 159, A1c 5.0. No current chest pain or no current chest pain or difficulty breathing (7) Chronic gastritis without bleeding: Recently started on PPI Qualifiers: Gastritis type: other gastritis Qualified Code(s): K29.50 - Unspecified chronic gastritis without bleeding (8) BMI 40.0-44.9, adult: Plan b/l UE US r/o DVT Warm compresses to the area. RN updated DC IV fluids Continue diet as per gen surg recommendations Out of bed to chair PT/OT to start Home PPI Xopenex for asthma IS encouraged. Pt doing well. Continue post op abx as per gen surgery. Zofran for nausea Pain control as per surgery DVT PPX: lovenox We will follow along while patient is hospitalized and address medical issues as needed Attestations Medical Necessity Statement*: Patient requiring inpatient hospitalization passing 2 midnights for awaiting bowel function Coding Level of Care Code Acute Financial Compliance Manager for Chg Fwd Diagnoses S/P laparoscopic colectomy Z90.49 S/P laparoscopic cholecystectomy Z90.49 Hypertension I10 Hypertension type: unspecified Iron deficiency anemia D50.0 Iron deficiency anemia type: chronic blood loss Mild persistent asthma J45.30 Asthma complication type: uncomplicated Elevated troponin R77.8 Chronic gastritis without bleeding K29.50 Gastritis type: other gastritis BMI 40.0-44.9, adult Z68.41
--- NOTE | 2022-02-17 16:41 | PC.NURSE ---
This nurse rounded at patient's bedside with Dr. Pineda. Patient will be advanced to a Clear Liquid diet and continue to ambulate.
[2022-02-17] MEDS: ondansetron 2 mg/ML SDV 2 mL 4 MG IVP (21:03)
[2022-02-17] MEDS: labetalol 5 mg/mL SDV 20mL IVP (21:03)
[2022-02-18] VITALS (11 sets, daily range): BP systolic 135–188; BP diastolic 54–82; PULSE 67–89; RESP 16–18; TEMP 36.7–37; O2SAT 93–98
[2022-02-18] MEDS: labetalol 5 mg/mL SDV 20mL IVP (00:26)
[2022-02-18] MEDS: D5-NS 0.45% + KCL 20 mEq 20 MEQ/1,000 ML BAG 50 MEQ IV (02:08)
[2022-02-18] MEDS: pantoprazole 40 mg SDV IVP ×2 (06:25→18:32)
--- NOTE | 2022-02-18 07:09 | P.PN_ITS ---
Subjective Subjective: Patient was started yesterday on clear liquid diet. She had some broth and she got dry heaves and threw up some. She felt better afterwards and she had a small liquidy bowel movement per nursing staff. She continues to pass little gas but not a whole lot. Continues to be ambulatory. Adequate urine output. An episode of systolic hypertension that was managed by the hospitalist service overnight by giving labetalol. Patient reports liquidy bowel movement and passing gas earlier this morning and she felt a whole lot relief. Pathology reviewed with the patient and her family yesterday. Medications: Reviewed: Yes Vitals/I&O/Wt Last Vital Signs Temp 98.4 F 02/18/22 04:12 Pulse 74 02/18/22 06:00 Resp 18 02/18/22 04:12 BP 150/62 02/18/22 05:51 Pulse Ox 95 02/18/22 04:12 O2 Del Method 02/18/22 04:12 O2 Flow Rate 6 02/14/22 13:03 02/17/22 02/18/22 02/18/22 22:59 06:59 14:59 Intake Total 120 / 120 1100 / 1220 Output Total 950 / 950 Balance 120 / 120 150 / 270 Physical Exam Narrative: Patient is conscious alert oriented X3 No apparent distress BMI 40.4 Head and neck examination PERRLA no masses no cervical lymphadenopathy no jaundice Cardiac examination audible S1-S2 no murmurs no gallops no arrhythmias Chest is clear bilateral,abscence of Rhonchi or wheezes,no surgical emphysema Precordial murmur Abdomen nontender except slightly at the incision sites, nondistended soft no organomegaly guarding or rigidity/no signs of peritonitis. Incisions are clean dry and intact and skin yanira in place. Bowel sounds are hyperactive Urinary Catheter Management: Carlos Latex: Cath Placed During This Visit: yes, but has since been removed by the nurse Reason for Continuing Indwelling Catheter: Perioperative Use in Selected Surgeries Urinary Catheter Date of Insertion: 02/14/22 Urinary Catheter Time of Insertion: 07:30 Date Urinary Catheter Removed: 02/15/22 Time Urinary Catheter Discontinued: 12:54 Data : 02/17/22 04:13 02/17/22 04:13 A&P Assessment and plan (1) S/P laparoscopic colectomy: Assessment 76 years old female patient status post laparoscopic right extended hemicolectomy for colon cancer and laparoscopic cholecystectomy 02/14/2022. Plan Educated the patient to continue slowly on clear liquid diet particularly as she did have a liquidy bowel movement today and pass gas, likely the beef broth made the patient nauseous yesterday. And also there might be a component of ileus postoperatively. Physical therapy on board Continue IV fluids at 50 mL/h We will switch heparin subcu to Lovenox 40 mg subcutaneous daily Abdominal binder only for comfort Strict I's and O's continue pharmacologic DVT prophylaxis Incentive spirometer every hour Continue coordinating care with hospitalist service Assurance and education All questions have been answered and all concerns have been addressed to patient's satisfaction. Attestations Medical Necessity Statement*: Patient requiring hospitalization passing 2 midnights as an inpatient as awaiting bowel function status post laparoscopic extended right hemicolectomy and cholecystectomy. Coding Level of Care Code Acute Director Regulatory Compliance for Chg Fwd Diagnoses S/P laparoscopic colectomy Z90.49
[2022-02-18] MEDS: enoxaparin 40 mg/0.4 mL Syringe SUBCUT (09:11)
--- NOTE | 2022-02-18 12:28 | P.PN_ITS ---
Subjective Subjective: seen this Am has had 3 BM so far that are liquidy feels better overall however complains of some discomfort in abdomen after eating which she attributes to having gas discussed her pathology prelim results with her. She is ok with being referred to oncology as an outpatient at or. she is now having chicken broth overnight event noted. she had to be given labetalol for high bp. her bp was high while she was dry heaving after having broth Vitals/I&O/Wt Last Vital Signs Temp 98.3 F 02/18/22 08:00 Pulse 74 02/18/22 08:00 Resp 16 02/18/22 08:00 BP 165/82 02/18/22 08:00 Pulse Ox 93 02/18/22 08:00 O2 Del Method 02/18/22 08:00 O2 Flow Rate 6 02/14/22 13:03 02/17/22 02/18/22 02/18/22 22:59 06:59 14:59 Intake Total 120 / 120 1100 / 1220 Output Total 950 / 950 Balance 120 / 120 150 / 270 Physical Exam Narrative: Patient is conscious alert oriented X3 No apparent distress BMI 40.4 Head and neck examination PERRLA no masses no cervical lymphadenopathy no jaundice Cardiac examination audible S1-S2 no murmurs no gallops no arrhythmias Chest is clear bilateral,abscence of Rhonchi or wheezes,no surgical emphysema Precordial murmur Abdomen nontender except slightly at the incision sites, nondistended soft no organomegaly guarding or rigidity/no signs of peritonitis. bowel sounds normal b/l LE edema present 1+ Urinary Catheter Management: Carlos Latex: Cath Placed During This Visit: yes, but has since been removed by the nurse Reason for Continuing Indwelling Catheter: Perioperative Use in Selected Surgeries Urinary Catheter Date of Insertion: 02/14/22 Urinary Catheter Time of Insertion: 07:30 Date Urinary Catheter Removed: 02/15/22 Time Urinary Catheter Discontinued: 12:54 Data : 02/17/22 04:13 02/17/22 04:13 A&P Assessment and plan (1) S/P laparoscopic colectomy: POD #1 Secondary to finding of hepatic flexure mass consistent with adenocarcinoma, CEA 6.9 Postoperative nausea, indicates has had issues with significant nausea and vomiting postanesthesia in the past Pain control currently adequate Nausea well controlled now. Has started popsicles Defer diet to gen surg team (2) S/P laparoscopic cholecystectomy: POD#1 Secondary to cholelithiasis (3) Hypertension: Recently started on amlodipine Historically has had whitecoat hypertension by description and not previously required treatment Qualifiers: Hypertension type: unspecified Qualified Code(s): I10 - Essential (primary) hypertension (4) Iron deficiency anemia: S/P 2 units pRBCs last week for Hgb of 6.1, started on iron replacement last week Stable, minimal blood loss noted perioperatively Hb stable today. 8.3 Qualifiers: Iron deficiency anemia type: chronic blood loss Qualified Code(s): D50.0 - Iron deficiency anemia secondary to blood loss (chronic) (5) Mild persistent asthma: On levalbuterol due to adverse effect from regular albuterol, takes fexofenadine and cough medication as needed Not currently acute Qualifiers: Asthma complication type: uncomplicated Qualified Code(s): J45.30 - Mild persistent asthma, uncomplicated (6) Elevated troponin: Last week in setting of severe anemia, 6 hr delta troponin about 25, felt to be due to demand ischemia, transient ekg changes and echo with normal EF, normal systolic and diastolic function and no wall motion abnormalities; screening labs on 02/09/2022 with low HDL 36, LDL 106, VLDL 17, tchol 159, A1c 5.0. No current chest pain or no current chest pain or difficulty breathing (7) Chronic gastritis without bleeding: Recently started on PPI Qualifiers: Gastritis type: other gastritis Qualified Code(s): K29.50 - Unspecified chronic gastritis without bleeding (8) BMI 40.0-44.9, adult: Plan b/l UE US r/o DVT. cephalic vein thrombophlebitis present. Warm compresses to the area. RN updated DC IV fluids today. Continue diet as per gen surg recommendations Out of bed to chair PT/OT to start Home PPI Xopenex for asthma IS encouraged. Pt doing well. ABX as per G.Surg. DIscontinued. Zofran for nausea Pain control as per surgery oncology referral at discharge Will order simethicone after discussing with gen surg today. Will restart amlodipine 5 mg daily. DVT PPX: lovenox We will follow along while patient is hospitalized and address medical issues as needed Attestations Medical Necessity Statement*: Patient requiring hospitalization passing 2 midnights as an inpatient as awaiting bowel function status post laparoscopic extended right hemicolectomy and cholecystectomy. Coding Level of Care Code Acute Data Examination Clerk for Chg Fwd Diagnoses S/P laparoscopic colectomy Z90.49 S/P laparoscopic cholecystectomy Z90.49 Hypertension I10 Hypertension type: unspecified Iron deficiency anemia D50.0 Iron deficiency anemia type: chronic blood loss Mild persistent asthma J45.30 Asthma complication type: uncomplicated Elevated troponin R77.8 Chronic gastritis without bleeding K29.50 Gastritis type: other gastritis BMI 40.0-44.9, adult Z68.41
[2022-02-18] MEDS: amlodipine 5 mg Tablet PO (12:52)
[2022-02-18] MEDS: labetalol 5 mg/mL SDV 20mL 10 MG IVP (19:36)
[2022-02-19] VITALS: BP 149/62; PULSE 75; RESP 16; TEMP 37.1; O2SAT 95
[2022-02-19 03:29] VITALS: BP 150/75; PULSE 72; RESP 15; TEMP 36.8; O2SAT 95
[2022-02-19 04:30] LABS: Hematocrit 31.9 % (37.0-47.0); Hemoglobin 9.1 g/dL (11.5-15.3)
[2022-02-19 05:07] LABS: Alanine Aminotransferase 15 U/L (0-33); Albumin Level 3.3 g/dL (3.5-5.2); Alkaline Phosphatase 61 U/L (35-105); Anion Gap 11.8 (5-19); Aspartate Amino Transferase 16 U/L (0-32); Blood Urea Nitrogen 5 mg/dL (8-23); Calcium 8.9 mg/dL (8.5-10.5); Carbon Dioxide 26 mmol/L (22-29); Chloride 104 mmol/L (98-107); Globulin 2.5 g/dL (1.3-4.6); Glucose 109 mg/dL (65-115); Osmolality Calculated 284 mOsm/kg (285-295); Potassium 3.8 mmol/L (3.5-5.1); Sodium 138 mmol/L (136-145); Total Bilirubin 0.3 mg/dL (0.15-1.2); Total Protein 5.8 g/dL (6.6-8.7)
[2022-02-19 06:00] VITALS: PULSE 63
[2022-02-19] MEDS: pantoprazole 40 mg SDV IVP (06:03)
--- NOTE | 2022-02-19 06:22 | PC.NURSE ---
Rounding at patient bedside with Dr. Pineda. Plan to d/c this afternoon.
[2022-02-19 08:00] VITALS: BP 143/55; PULSE 73; RESP 18; TEMP 35.9; O2SAT 96
--- NOTE | 2022-02-19 08:38 | P.DS_ITS ---
Discharge Providers Date of Admission: 02/14/22 12:38 Date of Discharge: February 19, 2022 Attending Provider at Admission: Gera Pineda MD Attending Provider at Discharge: Gera Pineda MD Consults: Hospitalist service Primary Care Provider: Shadi Mcnally DO Diagnoses at Discharge Discharge Diagnosis (1) S/P laparoscopic colectomy: Details from hospital stay: Patient undergone uneventful laparoscopic right extended hemicolectomy for hepatic flexure adenocarcinoma of the colon and laparoscopic cholecystectomy for calculus gallbladder. Patient overall did well during her hospitalization and required some time to resume her bowel function. Status: Acute Permanent problem details: Dr Pineda, right hemicolectomy with primary ileocolic anastomosis (2) S/P laparoscopic cholecystectomy: Details from hospital stay: Plan of care; Review the pathology with the patient Assurance and education All questions have been answered Status: Acute Permanent problem details: Dr. Pineda (3) Hypertension: Details from hospital stay: Continue medical management upon discharge by primary care provider service Status: Chronic Qualifiers: Hypertension type: unspecified Qualified Code(s): I10 - Essential (primary) hypertension Permanent problem details: White coat hypertension, no medical treatment prior to 02/2022 (4) Iron deficiency anemia: Details from hospital stay: Trending up and H&H Continue follow-up with PCP service Status: Acute Qualifiers: Iron deficiency anemia type: chronic blood loss Qualified Code(s): D50.0 - Iron deficiency anemia secondary to blood loss (chronic) Permanent problem details: Transfusion 2 units PRBCs 02/2022 (5) Mild persistent asthma: Details from hospital stay: Medical management per PCP Status: Chronic Qualifiers: Asthma complication type: uncomplicated Qualified Code(s): J45.30 - Mild persistent asthma, uncomplicated (6) Elevated troponin: Details from hospital stay: Ruled out any pertinent cardiac problem Status: Resolved (7) Chronic gastritis without bleeding: Details from hospital stay: Continue PPI therapy upon discharge Status: Chronic Qualifiers: Gastritis type: other gastritis Qualified Code(s): K29.50 - Unspecified chronic gastritis without bleeding (8) BMI 40.0-44.9, adult: Details from hospital stay: Focus on weight management. Recommendation to focus on high-protein and low fat content Status: Chronic Reason for Visit Reason for Visit: other specified diseases of intestine Hospital Course Hospital Course Patient undergone uneventful laparoscopic extended right hemicolectomy and laparoscopic cholecystectomy. Was kept n.p.o. except for ice chips initially till she started resuming bowel function in the form of passage of gas. Early on she did have 1 bout of emesis as she did not feel comfortable with the beef broth. Once that was switched she was able to maintain appropriate oral intake and continues to pass gas and have liquidy bowel movement. Nonbloody in nature. Patient was kept on pharmacologic DVT prophylaxis and hospitalist was consulted for management of hypertension. Continues to be ambulatory with physical therapy on board. Carlos catheter was discontinued and patient was able to void urine on her own. Developed some numbness of the left hand after surgery and that is getting better every day. Also there was some swelling of the left arm due to IV infiltration from recent hospitalization and an ultrasound venous duplex was obtained and DVT and thrombophlebitis were ruled out. With that regard patient responded well to warm compresses and arm elevation. Adequate urine output. Dressings were taken down and incisions maintained to be clean dry and intact. Abdominal binder was placed for comfort. Patient continue to work on incentive spirometer to prevent any pneumonia. Blood levels have been stable. Did not require blood transfusion during this hospitalization. Pathology was reviewed with the patient and her family. A formal oncology consultation will be initiated as an outpatient. For continuity of care. Patient was started on protein shakes as a supplemental diet with a clear liquid diet and she seems to be maintaining well with that regard. Physical Exam Narrative: Patient is conscious alert oriented X3 No apparent distress BMI 40.4 Head and neck examination PERRLA no masses no cervical lymphadenopathy no jaundice Cardiac examination audible S1-S2 precordial murmurs no gallops no arrhythmias Chest is clear bilateral,abscence of Rhonchi or wheezes,no surgical emphysema Abdomen nontender nondistended soft no organomegaly guarding or rigidity/no signs of peritonitis Bowel sounds are positive Incisions are clean dry and intact Extremities no cyanosis no clubbing no edema Urinary Catheter Management: Carlos Latex: Cath Placed During This Visit: yes, but has since been removed by the nurse Reason for Continuing Indwelling Catheter: Perioperative Use in Selected Surgeries Urinary Catheter Date of Insertion: 02/14/22 Urinary Catheter Time of Insertion: 07:30 Date Urinary Catheter Removed: 02/15/22 Time Urinary Catheter Discontinued: 12:54 Discharge Data Studies Completed and Pending Completed Studies During Hospitalization Category Date Time Status Pathology: Surgical [PTH] Routine Pth 10/11/22 12:32 [place] [id number] Routine Ultrasound 02/15/22 12:18 Completed Pending at discharge Category Date Time Status ES surgery / GI images Routine Exams 02/14/22 06:41 Taken Laboratory Results WBC 7.7 10^3/uL (4.0-10.0) 02/17/22 04:13 RBC 3.82 10^6/uL (4.1-5.3) L 02/17/22 04:13 Hgb 9.1 g/dL (11.5-15.3) L 02/19/22 03:28 Hct 31.9 % (37.0-47.0) L 02/19/22 03:28 MCV 78.5 fl (81-99) L 02/17/22 04:13 MCH 21.5 pg (28.0-34.0) L 02/17/22 04:13 MCHC 27.3 g/dL (30.0-36.0) L 02/17/22 04:13 RDW 28.3 % (12.1-15.1) H 02/17/22 04:13 Plt Count 249 10^3/cmm (130-400) 02/17/22 04:13 MPV 10.9 fL (7.4-10.4) H 02/17/22 04:13 Neut % (Auto) 66.8 % 02/17/22 04:13 Lymph % (Auto) 17.6 % 02/17/22 04:13 Bee % (Auto) 11.0 % 02/17/22 04:13 Eos % (Auto) 3.2 % 02/17/22 04:13 Baso % (Auto) 0.9 % 02/17/22 04:13 Neut # (Auto) 5.17 10^3/uL (1.8-7.7) 02/17/22 04:13 Lymph # (Auto) 1.4 10^3/uL (0.8-4.8) 02/17/22 04:13 Bee # (Auto) 0.9 10^3/uL (0.2-0.9) 02/17/22 04:13 Eos # (Auto) 0.3 10^3/uL (0.0-0.8) 02/17/22 04:13 Baso # (Auto) 0.1 10^3/uL (0.0-0.1) 02/17/22 04:13 Nucleated RBC % (auto) 0 % 02/17/22 04:13 Nucleated RBCs # 0.0 /100WBC 02/17/22 04:13 Sodium 138 mmol/L (136-145) 02/19/22 03:28 Potassium 3.8 mmol/L (3.5-5.1) 02/19/22 03:28 Chloride 104 mmol/L (98-107) 02/19/22 03:28 Carbon Dioxide 26 mmol/L (22-29) 02/19/22 03:28 Anion Gap 11.8 (5-19) 02/19/22 03:28 BUN 5 mg/dL (8-23) L 02/19/22 03:28 Creatinine 0.7 mg/dL (0.5-0.9) 02/19/22 03:28 GFR Calculation Not Reportable 02/19/22 03:28 Glucose 109 mg/dL (65-115) 02/19/22 03:28 Calculated Osmolality 284 mOsm/kg (285-295) L 02/19/22 03:28 Calcium 8.9 mg/dL (8.5-10.5) 02/19/22 03:28 Total Bilirubin 0.3 mg/dL (0.15-1.2) 02/19/22 03:28 AST 16 U/L (0-32) 02/19/22 03:28 ALT 15 U/L (0-33) 02/19/22 03:28 Alkaline Phosphatase 61 U/L (35-105) 02/19/22 03:28 Total Protein 5.8 g/dL (6.6-8.7) L 02/19/22 03:28 Albumin 3.3 g/dL (3.5-5.2) L 02/19/22 03:28 Globulin 2.5 g/dL (1.3-4.6) 02/19/22 03:28 Blood Type A Positive 02/14/22 06:28 Rho(D) Type Positive 02/14/22 06:28 Antibody Screen Negative 02/14/22 06:28 Procedures Performed Operative Report Date of procedure: February 14, 2022 Pre-op diagnosis: Preop Diagnosis ? Colon mass/cholelithiasis ? Procedure done: Laparoscopic extended right hemicolectomy with ileocolic anastomosis Laparoscopic cholecystectomy Implants: Surgicel at the gallbladder fossa Specimens removed/disposition: Extended right hemicolectomy with sutures marked proximal Gallbladder and contents Staple line Surgeon: Gera Pineda MD Content Coordinator: Surgical techminh Barron and Theodore Circulating nurse Nicky Anesthesia: General (Dr. Richard Obando and YAMILE Donis) Estimated blood loss (mL): 25 IV fluids (mL): 1,200 IV fluids: 60 mL 25% albumin Urine output: 50 cc Procedure: Patient was identified in the holding area,then was? was taken to the operating room and placed in a supine position under general anesthesia Time-out was done verifying the patient's name/date of /planned procedure? and destination after the procedure, all were in agreement.? SCDs confirmed to be functioning, preoperative antibiotics administered per protocol, and beta jenn protocol was confirmed.? Heparin subcutaneous was given as prophylactic prior to surgery.? All pressure points were padded and patient was appropriately secured to the table.? Left arm was tucked. A Carlos catheter was placed and the abdomen was prepped and draped in a sterile manner.? A 2 cm midline supraumbilical incision was made and using open Monk trocar technique was placed and 15 mm of pneumoperitoneum was created. 10 mm 0 degree scope was introduced was no evidence of bleeding or injury.? The scope was then switched to a 10 mm 30? scope ? A 5 mm port was placed in the left lower quadrant and another 5 mm port was placed in the left upper quadrant. Liver showed no evidence of metastatic disease and there was no evidence of carcinomatosis or ascites. The patient was placed in Trendelenburg position and steep tilt to the left placing the small bowel in the left side within the peritoneal cavity and the transverse colon was retracted superiorly.? The cecum was retracted laterally and the tenting of the ileocolic pedicle was noted.? Patient was noticed to have thick omentum with excess fatty tissues.? The peritoneum overlying the pedicle was opened and a window created posterior to the pedicle just lateral to the third portion of the duodenum.? Dissection was carried superiorly lateral to the duodenum along the avascular plane.? Using Enseal device. I decided to switch the left upper quadrant 5 m trocar to 12 mm trocar to facilitate using the 10 mm 30 degree scope from different angles. ?I skeletonized the ileocolic pedicle then a vascular load 45 mm was applied towards the SMA . The avascular plane was dissected laterally towards the right paracolic gutter and superiorly towards the hepatic flexure.The transverse mesocolon was divided using Enseal device and this was continued medially.? Noticed that there is mass encompassing the proximal transverse colon with a thickened started mesentery with lymphadenopathy. The right branch of middle colic vessels were skeletonized and divided with another 45 mm white load was applied. The anterior leaflet of the greater omentum was divided near the midpoint of the transverse colon to enter the lesser sac.? The greater omentum was divided using Enseal device and the hepatic flexure was taken down.? The dissection was carried along the line of Toldt until the ascending colon and down to ileum to completely free it up.? There were some adhesions towards the terminal ileum were taken down as well.after injection of methylene blue there was no spillage or indication of right ureteric injury.The mesentery of the terminal ileum was divided using Enseal device.? Control of the middle colic artery and vein were done using 2-0 silk suture suture as transfixing ties when the specimen was after further dissection when the colon was retrieved out from the wound to make sure that this bulky omentum started with lymph nodes are all well dissected.? To maximize lymph node basin and to secure high ligation. Noticed that the mesenteric fat was so bulky thick of the right side of the colon. Attention now was deviated towards the gallbladder component Gallbladder showed chronic calculus cholecystitis and Fatty Liver And epigastric 5 mm trocar was introduced under direct visualization, followed by 2 additional 5 mm ports on the right lateral aspect. Patient was then positioned in the head up and tilted to the left. Ratcheted forceps were introduced into the lateral most 5mm port and was applied unto the fundus of the gallbladder cephalad and using Bullet forceps the infundibulum of the gallbladder was retracted laterally.? Using [place] forceps then L-hook cautery? to dissect the peritoneum overlying the Calot's triangle which was then opened medially and laterally until the cystic duct and the cystic artery were skeletonized.? Dissection was carried along the body of the gallbladder and after ensuring critical view of safety was identfied. Cystic duct and cystic artery where seen connected to the gallbladder. Clips were applied on the cystic duct towards the common bile duct 1 towards the gallbladder then divided is in sharp scissors, 2 clips were then applied onto the cystic artery and 1 towards the gallbladder and divided by sharp scissors.? Additional traversing vessel was clipped and divided. ? Dissection was then carried along of the gallbladder from the gallbladder fossa using cautery and Enseal device as well as sharp dissection with heat energy. The gallbladder then was dissected out from the gallbladder fossa totally , cholecystectomy was then achieved and was placed in an Endo Catch bag and then retrieved from the left upper quadrant 12 mm trocar site under direct visualization using a 10 mm 30? scope through the Monk trocar, specimen was then passed to the circulating nurse to go for permanent pathology,irrigation and hemostasis was done to the gallbladder fossa after hemostasis was secured, final survey laparoscopy was done that showed no injuries.? Suction irrigation was obtained.? The pieces of Surgicel were kept in the gallbladder fossa At this point the pneumoperitoneum was released and the mobilized colon and small bowel was exteriorized through the supraumbilical incision which had been extended and a wound protector had been placed.? Application of 75 mm blue load onto the terminal ileum and division well as on the mid part of transverse colon with safety margin away from the tumor ,specimen was now passed to the circulating nurse.? Right extended hemicolectomy was then achieved Confirmation from pathology that the mass is removed with bulky omentum and lymphadenopathy ?Interrupted 3-0 silk suture were placed to approximate the ileum to the transverse colon and enterotomies were created on the distal transverse colon and small bowel and and 75 mm blue load [place] stapler was introduced and fired creating a [id number] stapled anastomosis.? There was no bleeding noted from the staple line and enterotomies were grasped and closed in 2 layer and additional 75 mm blue load was applied and the staple line was sent for permanent pathology. ?The bowel continued to be viable then were reintroduced into the peritoneal cavity. At this point the GelPort was placed to have adequate sealing, pneumoperitoneum was introduced final look laparoscopy was done and irrigation followed by suction was achieved and no injuries or bleeding were detected.? The left upper 12 mm trocar site was closed under direct visualization using figure of eight #1 PDS sutures Bilateral TAP (transversus abdominous plain peripheral nerve block )block using Exparel 20 mL Exparel 40 ml Normal saline 20 ml bupivacaine 0.25% 30 mL on each side injected 20 mL injected the port sites All ports were removed? and there was no bleeding noted from the port sites.? The midline fascia closed using PDS suture followed by thorough irrigation then skin yanira used to close the skin incision and all other trocar sites were closed by skin yanira as well. 2% lidocaine was infiltrated around the incisions. The patient is transferred to the recovery room after extubated in stable condition with a NGT and a Carlos catheter I Was present for the whole entire procedure Dictated By: Gera Pineda MD Signed By: Gera Pineda MD Vitals Last Vital Signs Temp 96.7 F L 02/19/22 08:00 Pulse 73 02/19/22 08:00 Resp 18 02/19/22 08:00 BP 143/55 02/19/22 08:00 Pulse Ox 96 02/19/22 08:00 O2 Del Method 02/19/22 08:00 O2 Flow Rate 6 02/14/22 13:03 Discharge Plan Discharge Patient Disposition: Home Condition: Stable Prescriptions: New Lovenox 40 mg/0.4 mL syringe 40 mg SUBCUT DAILY 10 Days Qty: 4 0RF Rx Instructions: First dose to start on 02/20/2022 Continued Mucinex Nightshft Cold-Flu Clr 1.25-5-10-325 mg/10 mL liquid 20 ml PO Q4H PRN (Reason: Cough) Rx Instructions: do not exceed 4 doses per 24 hrs levalbuterol tartrate 45 mcg/actuation HFA aerosol inhaler 2 inh inhalation Q6H Qty: 15 3RF fexofenadine 60 mg tablet 60 mg PO DAILY PRN (Reason: Allergy Symptoms) pantoprazole [Protonix] 40 mg tablet,delayed release (DR/EC) 40 mg PO Q12H 10 Days Qty: 20 0RF ferrous gluconate 324 mg (37.5 mg iron) tablet 324 mg PO BID Qty: 60 0RF amlodipine 5 mg tablet 5 mg PO DAILY Qty: 30 0RF Held aspirin 81 mg Tablet,Delayed Release (Dr/Ec) 81 mg PO DAILY Hold Instructions: Resume on 02/25/22. Discharge Orders: Discharge Order (Routine); Ordered 02/19/22 Ordered By: Gera Pineda Referrals: Gera Pineda MD [Physician] - (Return to surgery office in 10 days) Gunnar Leonard MD [Hospitalist] - (Referral to oncology service with diagnosis of colon cancer to establish care and counseling with oncology. First available appointment with Dr. Leonard) Discharge Diet: As Directed Discharge Activity: Limit activity as instructed Patient Instructions: Constipation - Adult, Enoxaparin (By injection), Colorectal Cancer (GEN), Clear Liquid Diet (GEN), Full Liquid Diet (GEN), GI (Gastrointestinal) Soft Diet (GEN), Opioid Safety, Post Anesthesia Care, Diet for Stomach Ulcers and Gastritis (GEN), Fall Prevention for Older Adults (GEN) Activity Restrictions/Additional Instructions: Activity Restrictions/Additional Instructions: Diet Clear liquid diet today and starting 02/20/2022 advance to full liquid diet for 2 days then soft GI diet thereafter. Emphasis on protein shakes 3 to 4 cans a day. Activity 1. Patient can shower after 48 hours from surgery 2. Remove secondary dressing can take down after 48 hours. 3. Up and walking as tolerated 4. Do lift more than 5 pounds first 2 weeks after surgery and not more than 25 pounds 6 to 8 weeks after surgery. 5. Do not operate heavy machinery or drive while using pain medications. 6.Contact the office or return to the ER for worsening nausea vomiting fevers or chills, or noticing any redness around incision sites or discharge. 7. Abdominal binder for comfort Driving You can resume driving once you stop using narcotic pain medications, and transition to non-opioid pain medications like Tylenol, Motrin, Aleve, etc. Medications Pain Take opioid pain medications as prescribed and transition to non-opioid pain medications like Tylenol,. over the next few days. The goal of the pain medications is to make the pain bearable and not to be pain free since you recently had surgery. Resume all home medications after surgery as per the medication reconciliation list Nausea Nausea is common after surgery, take nausea medications as needed and stay on a liquid bland diet until nausea resolves. Constipation The combination of surgery, anesthesia and pain medications can result in constipation. Take stool softeners as prescribed. If you do not have a bowel movement in 3 days, please take an [id number] laxative like MiraLAX to address the constipation. Breathing Continue incentive spirometer at home Shower It is ok to shower and irrigate the wound. Do not soak in bathtub, swimming pool or hot tub for 2 weeks. Wound care Do not apply antibiotics or other medications on the incision Problems with the wound You can develop some redness around the incision from bruising after surgery. If there is increasing pain, redness, tenderness around the incision with or without drainage, please contact my office to rule out an infection. Sometimes the skin at the incisions can separate, resulting in reopening of the wound. Cover the wound with antibiotic cream and sterile dressings and contact my office. Contact physician Call the office at [phone] during office hours or go the Emergency Room after hours for - ?Fever to 100.4 or greater ?Shaking chills ?Pain that increases over time ?Redness, warmth, or pus draining from incision sites ?Persistent nausea or inability to take in liquids Patient's Health Concerns: Morbid obesity Anemia Hypertension Gastritis Assessment: Colon cancer Plan of Treatment: oncology referral as an outpatient Discharge Attestations Time Spent in Discharge Care*: greater than 30 min Specific Discharge Activities: educating patient, educating and/or supporting family/caregiver and evaluating patient/reviewing data Status at Discharge: Cognitive status at discharge: cognitively intact , Behavioral status at discharge: cooperative , Functional status at discharge: independent ambulation , Overall status at discharge: patient is progressing back to baseline Quality Metrics Clinical Quality Measures [ No reported AMI, CVA or VTE this stay] Coding Level of Care Code Acute [facility] note Diagnoses S/P laparoscopic colectomy Z90.49 S/P laparoscopic cholecystectomy Z90.49 Hypertension I10 Hypertension type: unspecified Iron deficiency anemia D50.0 Iron deficiency anemia type: chronic blood loss Mild persistent asthma J45.30 Asthma complication type: uncomplicated Elevated troponin R77.8 Chronic gastritis without bleeding K29.50 Gastritis type: other gastritis BMI 40.0-44.9, adult Z68.41
[2022-02-19] MEDS: enoxaparin 40 mg/0.4 mL Syringe SUBCUT (09:22)
[2022-02-19] MEDS: amlodipine 5 mg Tablet 10 MG PO (09:23)
[2022-02-19 09:44] VITALS: PULSE 86; RESP 16; O2SAT 97
--- NOTE | 2022-02-19 09:48 | P.PN_ITS ---
Subjective Subjective: Seen this morning. Patient did receive 1 dose of labetalol last night. She states she was in pain and some discomfort at the time and her blood pressure was elevated. Other than that her blood pressure has remained stable during hospital stay. Vitals/I&O/Wt Last Vital Signs Temp 96.7 F L 02/19/22 08:00 Pulse 86 02/19/22 09:44 Resp 16 02/19/22 09:44 BP 143/55 02/19/22 08:00 Pulse Ox 97 02/19/22 09:44 O2 Del Method 02/19/22 09:44 O2 Flow Rate 6 02/14/22 13:03 Physical Exam Narrative: Patient is conscious alert oriented X3 No acute distress Head and neck examination, EOMI Cardiac examination audible S1-S2 no murmurs no gallops Chest is clear bilateral,abscence of Rhonchi or wheezes,no surgical emphysema Precordial murmur Abdomen nontender except slightly at the incision sites, nondistended soft no organomegaly guarding or rigidity/no signs of peritonitis. bowel sounds normal b/l LE edema present 1+ Urinary Catheter Management: Carlos Latex: Cath Placed During This Visit: yes, but has since been removed by the nurse Reason for Continuing Indwelling Catheter: Perioperative Use in Selected Paz rgeries Urinary Catheter Date of Insertion: 02/14/22 Urinary Catheter Time of Insertion: 07:30 Date Urinary Catheter Removed: 02/15/22 Time Urinary Catheter Discontinued: 12:54 Data : 02/19/22 03:28 02/19/22 03:28 A&P Assessment and plan (1) S/P laparoscopic colectomy: POD #5 Secondary to finding of hepatic flexure mass consistent with adenocarcinoma, CEA 6.9 Postoperative nausea, indicates has had issues with significant nausea and vomiting postanesthesia in the past Pain control currently adequate Nausea well controlled now. Patient has been transitioned to liquid diet with protein shakes today. Defer to general surgery regarding diet advancement. (2) S/P laparoscopic cholecystectomy: POD#1 Secondary to cholelithiasis (3) Hypertension: Recently started on amlodipine Historically has had whitecoat hypertension by description and not previously required treatment Qualifiers: Hypertension type: unspecified Qualified Code(s): I10 - Essential (primary) hypertension (4) Iron deficiency anemia: S/P 2 units pRBCs last week for Hgb of 6.1, started on iron replacement last week Stable, minimal blood loss noted perioperatively Hb stable today. 8.3 Qualifiers: Iron deficiency anemia type: chronic blood loss Qualified Code(s): D50.0 - Iron deficiency anemia secondary to blood loss (chronic) (5) Mild persistent asthma: On levalbuterol due to adverse effect from regular albuterol, takes fexofenadine and cough medication as needed Not currently acute Qualifiers: Asthma complication type: uncomplicated Qualified Code(s): J45.30 - Mild persistent asthma, uncomplicated (6) Elevated troponin: Last week in setting of severe anemia, 6 hr delta troponin about 25, felt to be due to demand ischemia, transient ekg changes and echo with normal EF, normal systolic and diastolic function and no wall motion abnormalities; screening labs on 02/09/2022 with low HDL 36, LDL 106, VLDL 17, tchol 159, A1c 5.0. No current chest pain or no current chest pain or difficulty breathing (7) Chronic gastritis without bleeding: Recently started on PPI Qualifiers: Gastritis type: other gastritis Qualified Code(s): K29.50 - Unspecified chronic gastritis without bleeding (8) BMI 40.0-44.9, adult: Plan b/l UE US r/o DVT. cephalic vein thrombophlebitis present. Warm compresses to the area. RN updated DC IV fluids today. Continue diet as per gen surg recommendations Out of bed to chair PT/OT to start Home PPI Xopenex for asthma IS encouraged. Pt doing well. ABX as per G.Surg. DIscontinued. Zofran for nausea Pain control as per surgery oncology referral at discharge Continue patient on 5 mg of amlodipine daily. She did require IV push of labetalol overnight but she was also in pain at that time. I did discuss with her going up on the dose to 10 mg daily however we will continue on 5 mg daily for now. Her blood pressure goal should be 140/80. I have given her written instructions that if her blood pressure does start to elevate she is to return to her primary care doctor for adjustment of dosage. Advised her to keep a log to her blood pressure twice a day until seen by primary care Agree with general surgery to place on Lovenox for DVT prophylaxis at discharge due to high risk of DVT She will follow-up with oncology at discharge. Final pathology report is pending at this time. DVT PPX: lovenox Patient will be discharged to home today. Attestations Medical Necessity Statement*: Patient to be discharged today. Coding Level of Care Code Acute Council Member for Chg Fwd Diagnoses S/P laparoscopic colectomy Z90.49 S/P laparoscopic cholecystectomy Z90.49 Hypertension I10 Hypertension type: unspecified Iron deficiency anemia D50.0 Iron deficiency anemia type: chronic blood loss Mild persistent asthma J45.30 Asthma complication type: uncomplicated Elevated troponin R77.8 Chronic gastritis without bleeding K29.50 Gastritis type: other gastritis BMI 40.0-44.9, adult Z68.41
--- NOTE | 2022-02-19 12:04 | PC.SOCIAL ---
IMM Update Pg 2 of IMM updated and reviewed w/ patient. Copy provided. Copy in chart dated and initialed.
== END 2022-02-19 12:28 | disposition home or self-care (01) | DRG 330 ==
LOC: MEDSURG 13:12
PROVIDERS: Anesthesiology; Internal Medicine; Admitting Provider Surgery; PCP Family Medicine; Visit Provider Surgery
PROC: 0DTF4ZZ Resection of Right Large Intestine, Percutaneous Endoscopic Approach (ICD-10-PCS; CPT 44205; principal; 2022-02-14 07:00)
PROC: 0FT44ZZ Resection of Gallbladder, Percutaneous Endoscopic Approach (ICD-10-PCS; CPT 47562; 2022-02-14 07:00)
DX: C18.3 Malignant neoplasm of hepatic flexure (principal); Z68.41 Body mass index [BMI] 40.0-44.9, adult; Z85.3 Personal history of malignant neoplasm of breast; Z90.10 Acquired absence of unspecified breast and nipple; Z85.820 Personal history of malignant melanoma of skin; K81.1 Chronic cholecystitis; K76.0 Fatty (change of) liver, not elsewhere classified; I10 Essential (primary) hypertension; Z86.16 Personal history of COVID-19; J45.20 Mild intermittent asthma, uncomplicated; Z87.891 Personal history of nicotine dependence; D50.0 Iron deficiency anemia secondary to blood loss (chronic); E66.01 Morbid (severe) obesity due to excess calories; R20.0 Anesthesia of skin; I80.8 Phlebitis and thrombophlebitis of other sites
CPT/HCPCS: 36415; 51702; 80048; 80053; 85014; 85018; 85025; 86850; 86900; 88304; 88309; 88331; 93005; 93970; 96372; 97116; 97161; C9113; C9290; J0360; J0744; J1100; J1170; J1644; J1650; J2370; J2405; J2550; J2704; J2710; J3010; J3490; J7030; P9047; Q9968; S0030

== ENCOUNTER 2022-02-23 07:54 | Oncology outpatient (recurring) (ONCR) | payer MEDICARE, OTHER, SELFPAY | END 2022-03-06 23:59 | disposition home or self-care (01) | PROVIDERS: PCP Family Medicine; Visit Provider Internal Medicine Medical Oncology | DX: C18.3 Malignant neoplasm of hepatic flexure (principal); Z90.49 Acquired absence of other specified parts of digestive tract; D50.0 Iron deficiency anemia secondary to blood loss (chronic) | CPT/HCPCS: 99205 ==

== ENCOUNTER → 2022-02-27 09:01 | Outpatient (BNVA) | payer MEDICARE, OTHER, SELFPAY | PROVIDERS: PCP Family Medicine; Visit Provider Surgery | DX: Z98.890 Other specified postprocedural states (principal); C18.3 Malignant neoplasm of hepatic flexure; Z90.49 Acquired absence of other specified parts of digestive tract | CPT/HCPCS: 99024 ==

== ENCOUNTER 2022-03-03 08:30 | Outpatient (CLI) | payer MEDICARE, OTHER, SELFPAY ==
--- NOTE | 2022-03-03 08:30 | CT_ITS ---
WS: [id number] CT CHEST WITH INTRAVENOUS CONTRAST HISTORY: Staging, follow-up RIGHT lower lobe lung lesions. History of breast cancer. New diagnosis of colon cancer. Recent cholecystectomy. TECHNIQUE: Contiguous 5 mm axial imaging performed on the thorax. Coronal and sagittal reformats are submitted. All CT scans at [facility] use at least one of these dose optimization techniques: automated exposure control; mA and/or kV adjustment per patient size (includes targeted exams where dose is matched to clinical indication); or iterative reconstruction. CONTRAST: Omnipaque 350; 80 mL IV. DLP: 725.51 mGy.cm COMPARISON: Abdomen CT 02/08/2022., Neck CT 11/09/2017 Lungs and central airway: There are 2 noncalcified subcentimeter nodules in the RIGHT middle lobe. Th e largest is 5 mm. No additional nodule or mass. Pleura: Normal. No pleural effusion. Heart and pericardium: Mildly enlarged heart. No pericardial effusion. Mediastinum and puja: No mediastinal or hilar adenopathy. Vessels: Mildly prominent pulmonary artery to 3.6 cm. Mild atherosclerotic plaque within the thoracic aorta with no aneurysm. Chest wall and lower neck: RIGHT thyroid nodule measures 1.6 x 2.2 cm. By history prior bilateral mas tectomies. Upper abdomen: There is a small fluid collection containing a focus of air in the gallbladder fossa w ith adjacent clips. No wall enhancement. This collection measures 4.4 x 2.3 cm. Recent cholecystectom y. Subcutaneous soft tissue stranding in the abdominal wall from the recent laparoscopic surgery. No adrenal mass. Osseous structures: Moderate increase in thoracic kyphosis. CT/CT chest w con* [id number] IMPRESSION: 1. Noncalcified, subcentimeter nodules in the RIGHT middle lobe. The largest n odule measures 5 mm. Consider 6-[address] follow-up. 2. Cardiomegaly. 3. Small fluid collection containing a focus of air in the gallbladder fossa. No enhancement. Recent cholecystectomy. Probable postsurgical collection. If pa tient is febrile reevaluation by surgery may be necessary. 4. RIGHT thyroid nodule similar to the prior CT of 11/09/2017.
[2022-03-03] MEDS: iohexol 350 mg/mL 100 mL Btl IV (08:36)
== END 2022-03-03 08:31 | disposition home or self-care (01) ==
LOC: RAD 08:33
PROVIDERS: PCP Family Medicine; Visit Provider Internal Medicine Medical Oncology
DX: C18.0 Malignant neoplasm of cecum (principal); R91.8 Other nonspecific abnormal finding of lung field; I51.7 Cardiomegaly
CPT/HCPCS: 71260

== ENCOUNTER 2022-03-07 08:40 | Day surgery (SDC) | payer MEDICARE, OTHER, SELFPAY ==
[2022-03-06 14:18] VITALS: BMI 40.3
[2022-03-07] VITALS (8 sets, daily range): BP systolic 140–195; BP diastolic 60–76; PULSE 61–79; RESP 16–18; TEMP 36.2–36.6; O2SAT 92–100
--- NOTE | 2022-03-07 | SCC_ITS ---
Procedure done: 1. Placement of Right Subclavian vein power port 2. Fluoroscopic guidance and personal interpretation for placement of catheter 20 seconds of fluoroscopic guidance, for a cumulative dose of 7.0 mGy, was provided to Dr. Pineda by the radiology department. C-arm images of the chest were saved for the patient's permanent record. [facility]
--- NOTE | 2022-03-07 09:02 | SC_ITS ---
WS: [id number] INTRAOPERATIVE TECHNIQUE: 2 Spot fluoroscopic images for intraoperative purposes. FLUOROSCOPY TIME: 19.9 seconds CLINICAL INFORMATION: Powerport Placement COMPARISON: None. FINDINGS: RIGHT Port-A-Cath with tip in the mid to distal SVC. No visualized pneumothorax. SC/C-arm [place] for CVA [id number] IMPRESSION: Images obtained for intraoperative purposes.
--- NOTE | 2022-03-07 09:11 | W.PM.OPSUD ---
Surgery/Procedure H&P Update DATE OF PROCEDURE: March 07, 2022 DATE H&P PERFORMED: 02/27/22 H&P UPDATE INFORMATION: I have reviewed H&P completed within last 30 days, I have examined patient prior to procedure and No changes to prior documentation PREOP DIAGNOSIS: Colon cancer PRIMARY INDICATION FOR PROCEDURE: The same PLANNED PROCEDURE: Operation Date: 03/07/22 10:10 Proposed Procedures p 29109 placement of port a cath C18.3(Not Applicable) - Gera Pineda MD
[2022-03-07] MEDS: scopolamine 1.5 Patch 1 PATCH TRANSDERMA (09:12)
[2022-03-07] MEDS: sodium chloride 0.9% 1,000 ML 30 ML IV (09:24)
--- NOTE | 2022-03-07 09:42 | ANES.PREANE2 ---
Pre-Anesthetic Assessment Height/Weight: Height 1.68 m Weight 113.398 kg Temp Pulse Resp BP Pulse Ox O2 Del Method 97.6 F 79 18 195/72 100 03/07/22 09:01 03/07/22 09:01 03/07/22 09:01 03/07/22 09:01 03/07/22 09:01 03/07/22 09:04 Preop Diagnosis: Colon cancer Operation Date: 03/07/22 10:10 Proposed Procedures p 04797 placement of port a cath C18.3(Not Applicable) - Gera Pineda MD Familial anesthetic complications: episode of ponv Was Beta Gladis taken within 24 hours: N/A Was Clonidine taken within 24 hours: N/A Last intake: Intake Last Liquid Date 03/06/22 Last Liquid Time 20:00 Last Solid Date 03/06/22 Last Solid Time 19:30 Social No alcohol and No tobacco Exam alert, oriented x 3, clear to auscultation bilaterally and regular rate & rhythm Airway Mallampati: Class III Dentition: other (missing) Pulmonary Asthma CV/HEM Anemia hx pneumonia GI gastritis Musc/skel Lower Back Pain Anesthetic Plan ASA status: 4 Anesthesia: MAC Risk of > 500 ml blood loss (7ml/kg in children): No Medications/Allergies Home Medications Medication Instructions Recorded Confirmed Last Taken Type ferrous gluconate 324 mg (37.5 mg 324 mg PO BID #60 tabs 02/11/22 03/07/22 03/06/22 Rx iron) tablet amlodipine 5 mg tablet 5 mg PO DAILY 30 days #30 tabs 02/19/22 03/07/22 03/07/22 08:30 Rx pantoprazole 40 mg tablet,delayed 40 mg PO DAILY 30 days #30 tabs 02/19/22 03/07/22 03/06/22 Rx release (Protonix) Allergies Allergy/AdvReac Type Severity Reaction Status Date / Time adhesive tape Allergy ALGY-Rash Verified 03/07/22 08:57 codeine Allergy Vomit Verified 03/07/22 08:57 penicillin G Allergy Rash Verified 03/07/22 08:57 Current Medications Generic Name Dose Route Start Last Admin Trade Name Freq PRN Reason Stop Dose Admin Sodium Chloride 1,000 mls @ 30 mls/hr 03/07/22 09:15 03/07/22 09:24 Sodium Chloride 0.9% IV 03/08/22 09:14 30 mls/hr .Q24H SURI Administration PFSH Anesthesia Medical History Breast cancer Colon cancer COVID-19 (10/2021) Degenerative arthritis Demand ischemia of myocardium in setting of severe anemia (Hgb 6) in 02/2022 Gastritis History of malignant melanoma Hypertension White coat hypertension, no medical treatment prior to 02/2022 Iron deficiency anemia Transfusion 2 units PRBCs 02/2022 Mild persistent asthma Surgical History (Updated 02/28/22 @ 16:37 by Gera Pineda MD) H/O mastectomy (1994) right modified radical mastectomy with breast reconstruction History of appendectomy History of breast reconstruction Redo of right breast reconstruction History of colonoscopy 02/10/2022 mass at distal ascending colon/hepatic flexure History of esophagogastroduodenoscopy (EGD) 02/10/2022 chronic gastritis without bleeding History of hysterectomy History of melanoma excision Wide excision of melanoma on the back History of parotidectomy Right History of tonsillectomy S/P laparoscopic cholecystectomy (02/14/22) Dr. Pineda S/P laparoscopic colectomy (02/14/22) Dr Pineda, right hemicolectomy with primary ileocolic anastomosis Family History Grandmother Cancer Paternal--breast Mother Hypertension Stroke Father Lung disease Denies family history of Diabetes CAD (coronary artery disease) Clotting disorder Dementia Hyperlipidemia Chronic kidney disease (CKD) Anesthesia complication Bleeding disorder Social History Smoking and tobacco status: former smoker (Quit in 70's) Alcohol intake: current Alcohol intake frequency: holidays/special occasions only Caregiver/support person: No Lives independently: Yes Household members: spouse Marital status: History of recent travel: No Data Anesthesia Cardiac Studies: Echocardiogram 02/08/22
[2022-03-07] MEDS: clindamycin 900 MG/50 ML PREMIX 100 MG IV (10:12)
[2022-03-07] MEDS: heparin, porcine 1,000 unit/mL INJ 10 mL 10000 UNIT INJECTION (10:46)
--- NOTE | 2022-03-07 10:47 | SUR.OPER ---
1040 10ml 1% lidocaine given by dr weiss in operative area
--- NOTE | 2022-03-07 10:53 | P.OP_ITS ---
Operative Report Date of procedure: March 07, 2022 Pre-op diagnosis: Preop Diagnosis Colon cancer Post-op diagnosis: The same Procedure done: 1. Placement of Right Subclavian vein power port 2. Fluoroscopic guidance and personal interpretation for placement of catheter Implants: Right Sub-clavian vein power port Surgeon: Gera Pineda MD Chimney Builder Helper: dairy technologist Ashley Circulating nurse Cynthia Underwood Anesthesia: MAC (Nursing Department Chairperson Saul) Estimated blood loss (mL): 5 Procedure: RIGHT SUBCLAVIAN VEIN Patient was identified in the holding area and taken to the operative room and placed in supine position IV propofol was given by the anesthesia provider ,both arms were tucked,Time-out was done verifying the patient's name/date of /planned procedure and destination after the procedure, all were in agreement. SCDs confirmed to be functioning, preoperative antibiotics administered per protocol, and beta jenn protocol was confirmed, appropriate positioning of the patient was done by me and the nursing staff. Medications were reviewed to assess for anticoagulant usage. Risks and benefits and prevention of central line associated blood stream infection (CLABSI) were discussed with the patient/CPOA, and a consent was obtained. Monitors were in place and monitored throughout the procedure. All necessary supplies were available prior to start. Hand hygiene was completed prior to starting. Maximum barrier technique was utilized including a sterile gown, sterile gloves with a hat and mask. Site was was prepped with [chlorhexidine] and a full body drape was placed. 5 mL of 2% lidocaine was injected into the skin with a 25 gauge needle. Prep& drape was done under the usual sterile technique, lidocaine 2% was injected at the site of the stick, started by right sub-clavian vein stick that retrieved venous blood was obtained from the first stick, a guide wire was then threaded and under the guidance of fluoroscopy position was confirmed to be in the IVC and my interpretation, there were no PVC changes, at that point the guide wire was secured to the drapes with a hemostat and the needle was taken out, attention was then deviated towards creation of a pocket for the port were lidocaine 2% was injected using an 15 blade knife skin incision was created dissection using the Bovie to create a pocket for the Power Port to be accommodated. Hemostasis was secured, after the port being appropriately flushed it was inserted into the pocket and a tunneler was used to accommodate the catheter of the port catheter to be delivered through the incision first created at the site of the stick, at that point under fluoroscopy an estimated length was measured for the catheter and was cut at the designed level, followed by that a dilator with the sheath introduced onto the guide wire the dilator and the wire were retrieved and the catheter of the port was introduced via the sheath where it was peeled off and the catheter maintained to be in the SVC that was confirmed with fluoroscopy, and the fluoroscopy interpretation was done by me throughout the entire procedure. The port was kept in its pocket,3-0 Vicryl deep subdermal interrupted sutures, skin was then closed by 4-0 Monocryl as subcuticular closure.The port was appropriately flushed with heparin and venous blood was withdrawn without difficulty.The stick site was closed by 4-0 Monocryl and Dermabond was used followed by dressing.Count was correct at the end of the procedure.Patient tolerated the procedure well was taken to the recovery area. I was present for the whole entire procedure. Position of the catheter was checked with a postoperative chest x-ray and it was in good position without evidence of pneumothorax
--- NOTE | 2022-03-07 10:55 | XR_ITS ---
WS: [id number] CHEST XRAY TECHNIQUE: Portable chest. CLINICAL INFORMATION: Status post right subclavian vein PowerPort placement COMPARISON: February 08, 2022 FINDINGS: RIGHT Port-A-Cath with tip in the mid SVC. No visualized pneumothorax. Heart: Cardiomegaly. Lungs: Lungs are clear. No consolidation or pleural effusion. Bones: Normal visualized bony structures. XR/XR chest 1V portable [id number] IMPRESSION: RIGHT Port-A-Cath with tip in the mid SVC. No visualized pneumothorax.
--- NOTE | 2022-03-07 11:40 | SUR.PHASEII ---
CALLED SURGERY OFFICE 5 TIMES TO SCHEDULE A FOLLOW-UP APPOINTMENT. NO ONE EVER PICKED UP. PATIENT TO MAKE APPOINTMENT
--- NOTE | 2022-03-07 13:14 | ANE.PACU2 ---
Inpatient post-anesthesia follow up: Airway intact: Yes Vital signs: Temperature 97.4 F Pulse Rate 64 Respiratory Rate 18 Blood Pressure 151/61 Pulse Oximetry 97 Oxygen Delivery Me thod Room Air Oxygen Flow Rate 98 Fraction of Inspir ed Oxygen Hydration adequate: Yes Nausea and vomiting: No Pain level: 1 Mental status: Baseline
== END 2022-03-07 11:57 | disposition home or self-care (01) ==
PROVIDERS: PCP Family Medicine; Visit Provider Surgery
PROC: (CPT 36561; principal; 2022-03-07 10:00)
DX: C18.9 Malignant neoplasm of colon, unspecified (principal); Z86.16 Personal history of COVID-19; I10 Essential (primary) hypertension; Z87.891 Personal history of nicotine dependence; Z90.49 Acquired absence of other specified parts of digestive tract
CPT/HCPCS: 36561; 71045; 76000; 77001; C1788; J1644; J2704; J3010; J3490; J7030

== ENCOUNTER → 2022-03-13 13:00 | Outpatient (BNVA) | payer MEDICARE, OTHER, SELFPAY | PROVIDERS: PCP Family Medicine; Visit Provider Surgery | DX: Z09 Encounter for follow-up examination after completed treatment for conditions other than malignant neoplasm (principal) | CPT/HCPCS: 99024 ==

== ENCOUNTER → 2022-04-03 07:57 | Outpatient (BNVA) | payer MEDICARE, OTHER, SELFPAY | PROVIDERS: PCP Family Medicine; Visit Provider Nurse Practitioner | DX: C18.3 Malignant neoplasm of hepatic flexure (principal) | CPT/HCPCS: 99215 ==

== ENCOUNTER 2022-04-05 14:00 | Oncology outpatient (recurring) (ONCR) | payer MEDICARE, OTHER, SELFPAY ==
[2022-04-03 08:22] LABS: Basophils # 0.1 10^3/uL (0.0-0.1); Basophils % 0.9 %; Eosinophils # 0.3 10^3/uL (0.0-0.8); Eosinophils % 4.2 %; Hematocrit 37.9 % (37.0-47.0); Hemoglobin 11.2 g/dL (11.5-15.3); Lymphocytes # 1.9 10^3/uL (0.8-4.8); Lymphocytes % 24.9 %; Mean Corpuscular HGB Conc 29.6 g/dL (30.0-36.0); Mean Corpuscular Hemoglobin 23.4 pg (28.0-34.0); Mean Corpuscular Volume 79.1 fl (81-99); Monocytes # 0.6 10^3/uL (0.2-0.9); Monocytes % 8.1 %; Neutrophils # 4.65 10^3/uL (1.8-7.7); Neutrophils % 61.5 %; Nucleated Red Blood Cells % 0 %; Platelet Count 229 10^3/cmm (130-400); Red Blood Count 4.79 10^6/uL (4.1-5.3); Red Cell Distribution Width 24.8 % (12.1-15.1); White Blood Count 7.6 10^3/uL (4.0-10.0)
[2022-04-03 08:35] LABS: Slide Review Slide Review Perform
[2022-04-03 08:43] LABS: Alanine Aminotransferase 8 U/L (0-33); Albumin Level 3.7 g/dL (3.5-5.2); Alkaline Phosphatase 73 U/L (35-105); Anion Gap 12.7 (5-19); Aspartate Amino Transferase 10 U/L (0-32); Blood Urea Nitrogen 13 mg/dL (8-23); Calcium 9.3 mg/dL (8.5-10.5); Carbon Dioxide 25 mmol/L (22-29); Chloride 103 mmol/L (98-107); Glucose 122 mg/dL (65-115); Osmolality Calculated 285 mOsm/kg (285-295); Potassium 3.7 mmol/L (3.5-5.1); Sodium 137 mmol/L (136-145); Total Bilirubin 0.2 mg/dL (0.15-1.2); Total Protein 6.7 g/dL (6.6-8.7)
[2022-04-03] MEDS: dextrose 5% 250 ML 75 ML IV (11:03)
[2022-04-03] MEDS: palonosetron 0.25 mg/5 mL SDV IVP (11:03)
[2022-04-03] MEDS: fosaprepitant 150 MG in sodium chloride 0.9% 50 ML, sodium chloride 0.9% (100 ml) 100 ML 300 MG IV (11:36)
[2022-04-03] MEDS: leucovorin 880 MG in dextrose 5% 250 ML 62.5 MG IV (12:04)
[2022-04-03] MEDS: oxaliplatin 188 MG in dextrose 5% 250 ML 71.9 MG IV (12:04)
[2022-04-03] MEDS: ELASTOMERIC PUMP PUMP IV (15:59)
[2022-04-03] MEDS: FLUOROURACIL IV (15:59)
[2022-04-03] MEDS: SODIUM CHLORIDE IV (15:59)
[2022-04-03 16:08] VITALS: BP 163/72; PULSE 88; RESP 18; TEMP 36.7; O2SAT 94
== END 2022-04-05 23:59 | disposition home or self-care (01) ==
PROVIDERS: PCP Family Medicine; Visit Provider Internal Medicine Medical Oncology
DX: Z45.2 Encounter for adjustment and management of vascular access device (principal)
CPT/HCPCS: 80053; 85025; 96367; 96368; 96375; 96413; 96415; 96416; 96523; 99215; J0640; J1100; J1453; J2469; J7060; J9190; J9263

== ENCOUNTER 2022-04-19 11:00 | Oncology outpatient (recurring) (ONCR) | payer MEDICARE, OTHER, SELFPAY ==
[2022-04-10 09:13] VITALS: BP 167/77; PULSE 78; RESP 16; TEMP 36.3; O2SAT 98
[2022-04-10 10:11] LABS: Basophils % 0.6 %; Eosinophils # 0.3 10^3/uL (0.0-0.8); Eosinophils % 3.5 %; Hematocrit 38.6 % (37.0-47.0); Hemoglobin 11.6 g/dL (11.5-15.3); Lymphocytes # 1.8 10^3/uL (0.8-4.8); Lymphocytes % 24.9 %; Mean Corpuscular HGB Conc 30.1 g/dL (30.0-36.0); Mean Corpuscular Hemoglobin 23.7 pg (28.0-34.0); Mean Corpuscular Volume 78.9 fl (81-99); Mean Platelet Volume 11.4 fL (7.4-10.4); Monocytes # 0.6 10^3/uL (0.2-0.9); Monocytes % 7.7 %; Neutrophils # 4.53 10^3/uL (1.8-7.7); Nucleated Red Blood Cells % 0 %; Platelet Count 205 10^3/cmm (130-400); Red Blood Count 4.89 10^6/uL (4.1-5.3); Red Cell Distribution Width 23.9 % (12.1-15.1); White Blood Count 7.2 10^3/uL (4.0-10.0)
[2022-04-10 10:16] LABS: Slide Review Slide Review Perform
[2022-04-10 10:40] LABS: Alanine Aminotransferase 11 U/L (0-33); Albumin Level 3.8 g/dL (3.5-5.2); Alkaline Phosphatase 78 U/L (35-105); Anion Gap 13.7 (5-19); Aspartate Amino Transferase 12 U/L (0-32); Blood Urea Nitrogen 12 mg/dL (8-23); Calcium 9.5 mg/dL (8.5-10.5); Carbon Dioxide 25 mmol/L (22-29); Chloride 100 mmol/L (98-107); Globulin 3.2 g/dL (1.3-4.6); Glucose 101 mg/dL (65-115); Osmolality Calculated 280 mOsm/kg (285-295); Potassium 3.7 mmol/L (3.5-5.1); Sodium 135 mmol/L (136-145); Total Bilirubin 0.3 mg/dL (0.15-1.2)
--- NOTE | 2022-04-10 13:27 | PC.NURSE ---
Dr. Leonard saw pt in infusion suite. CBC/CMP shown to and reviewed with pt. /lc
[2022-04-17 08:30] LABS: Basophils # 0.1 10^3/uL (0.0-0.1); Basophils % 0.9 %; Eosinophils # 0.2 10^3/uL (0.0-0.8); Eosinophils % 3.2 %; Hemoglobin 11.1 g/dL (11.5-15.3); Lymphocytes # 1.6 10^3/uL (0.8-4.8); Lymphocytes % 24.5 %; Mean Corpuscular Hemoglobin 23.9 pg (28.0-34.0); Mean Corpuscular Volume 79.6 fl (81-99); Mean Platelet Volume 10.4 fL (7.4-10.4); Monocytes # 0.7 10^3/uL (0.2-0.9); Monocytes % 10.8 %; Neutrophils # 3.82 10^3/uL (1.8-7.7); Neutrophils % 60.4 %; Nucleated Red Blood Cells % 0 %; Platelet Count 204 10^3/cmm (130-400); Red Blood Count 4.65 10^6/uL (4.1-5.3); Red Cell Distribution Width 22.1 % (12.1-15.1); White Blood Count 6.3 10^3/uL (4.0-10.0)
[2022-04-17 08:47] LABS: Alanine Aminotransferase 8 U/L (0-33); Albumin Level 3.8 g/dL (3.5-5.2); Alkaline Phosphatase 74 U/L (35-105); Anion Gap 13.5 (5-19); Aspartate Amino Transferase 11 U/L (0-32); Blood Urea Nitrogen 12 mg/dL (8-23); Calcium 9.1 mg/dL (8.5-10.5); Carbon Dioxide 24 mmol/L (22-29); Chloride 106 mmol/L (98-107); Globulin 2.7 g/dL (1.3-4.6); Glucose 112 mg/dL (65-115); Osmolality Calculated 291 mOsm/kg (285-295); Potassium 3.5 mmol/L (3.5-5.1); Sodium 140 mmol/L (136-145); Total Bilirubin 0.2 mg/dL (0.15-1.2); Total Protein 6.5 g/dL (6.6-8.7)
[2022-04-17] MEDS: dextrose 5% 250 ML 100 ML IV (09:48)
[2022-04-17] MEDS: fosaprepitant 150 MG in sodium chloride 0.9% 50 ML, sodium chloride 0.9% (100 ml) 100 ML 300 MG IV (09:50)
[2022-04-17] MEDS: palonosetron 0.25 mg/5 mL SDV IVP (10:25)
[2022-04-17] MEDS: leucovorin 880 MG in dextrose 5% 250 ML 62.5 MG IV (10:40)
[2022-04-17] MEDS: SODIUM CHLORIDE IV (13:53)
[2022-04-17] MEDS: FLUOROURACIL IV (13:53)
[2022-04-17] MEDS: ELASTOMERIC PUMP PUMP IV (13:53)
[2022-04-17 14:01] VITALS: BP 166/74; PULSE 78; TEMP 37; O2SAT 95
== END 2022-05-06 23:59 | disposition home or self-care (01) ==
PROVIDERS: Nurse Practitioner; PCP Family Medicine; Visit Provider Internal Medicine Medical Oncology
DX: C18.3 Malignant neoplasm of hepatic flexure (principal)
CPT/HCPCS: 36591; 80053; 85025; 96367; 96368; 96375; 96413; 96415; 96416; 96523; 99214; J0640; J1100; J1453; J2469; J7060; J9190; J9263

== ENCOUNTER → 2022-05-09 07:54 | Outpatient (BNVA) | payer MEDICARE, OTHER, SELFPAY | PROVIDERS: PCP Family Medicine; Visit Provider Internal Medicine Medical Oncology | DX: C18.3 Malignant neoplasm of hepatic flexure (principal) | CPT/HCPCS: 99214 ==

== ENCOUNTER 2022-05-25 13:00 | Oncology outpatient (recurring) (ONCR) | payer MEDICARE, OTHER, SELFPAY ==
[2022-05-09 08:31] LABS: Basophils # 0.1 10^3/uL (0.0-0.1); Basophils % 1.4 %; Eosinophils # 0.2 10^3/uL (0.0-0.8); Eosinophils % 2.9 %; Hematocrit 42.4 % (37.0-47.0); Hemoglobin 12.8 g/dL (11.5-15.3); Mean Corpuscular HGB Conc 30.2 g/dL (30.0-36.0); Mean Corpuscular Hemoglobin 24.9 pg (28.0-34.0); Mean Corpuscular Volume 82.5 fl (81-99); Mean Platelet Volume 10.3 fL (7.4-10.4); Monocytes # 0.8 10^3/uL (0.2-0.9); Monocytes % 12.6 %; Neutrophils # 3.25 10^3/uL (1.8-7.7); Neutrophils % 51.6 %; Nucleated Red Blood Cells % 0 %; Platelet Count 226 10^3/cmm (130-400); Red Blood Count 5.14 10^6/uL (4.1-5.3); White Blood Count 6.3 10^3/uL (4.0-10.0)
[2022-05-09 08:52] LABS: Alanine Aminotransferase 12 U/L (0-33); Albumin Level 4.1 g/dL (3.5-5.2); Alkaline Phosphatase 81 U/L (35-105); Anion Gap 13.8 (5-19); Aspartate Amino Transferase 15 U/L (0-32); Blood Urea Nitrogen 12 mg/dL (8-23); Calcium 9.3 mg/dL (8.5-10.5); Carbon Dioxide 25 mmol/L (22-29); Chloride 106 mmol/L (98-107); Globulin 2.9 g/dL (1.3-4.6); Glucose 117 mg/dL (65-115); Osmolality Calculated 293 mOsm/kg (285-295); Potassium 3.8 mmol/L (3.5-5.1); Sodium 141 mmol/L (136-145); Total Bilirubin 0.2 mg/dL (0.15-1.2)
[2022-05-09] MEDS: dextrose 5% 250 ML 100 ML IV (10:29)
[2022-05-09] MEDS: fosaprepitant 150 MG in sodium chloride 0.9% 50 ML, sodium chloride 0.9% (100 ml) 100 ML 300 MG IV (10:32)
[2022-05-09] MEDS: palonosetron 0.25 mg/5 mL SDV IVP (11:09)
[2022-05-09] MEDS: oxaliplatin 100 MG, oxaliplatin 42 MG in dextrose 5% 250 ML 69.6 MG IV (11:28)
[2022-05-09] MEDS: leucovorin 880 MG in dextrose 5% 250 ML 62.5 MG IV (11:28)
[2022-05-09] MEDS: FLUOROURACIL IV (14:22)
[2022-05-09] MEDS: ELASTOMERIC PUMP PUMP IV (14:22)
[2022-05-09] MEDS: SODIUM CHLORIDE IV (14:22)
[2022-05-09 14:58] VITALS: BP 159/65; PULSE 78; TEMP 37.1; O2SAT 97
[2022-05-23] MEDS: alteplase 1 mg/mL SDV 2 mL 2 MG INTRACATH (08:43)
[2022-05-23 08:53] LABS: Basophils # 0.1 10^3/uL (0.0-0.1); Basophils % 0.9 %; Eosinophils # 0.2 10^3/uL (0.0-0.8); Eosinophils % 4.1 %; Hematocrit 40.8 % (37.0-47.0); Hemoglobin 12.5 g/dL (11.5-15.3); Lymphocytes # 1.5 10^3/uL (0.8-4.8); Lymphocytes % 27.5 %; Mean Corpuscular HGB Conc 30.6 g/dL (30.0-36.0); Mean Corpuscular Hemoglobin 25.6 pg (28.0-34.0); Mean Corpuscular Volume 83.4 fl (81-99); Mean Platelet Volume 10.6 fL (7.4-10.4); Monocytes # 0.5 10^3/uL (0.2-0.9); Monocytes % 8.5 %; Neutrophils # 3.12 10^3/uL (1.8-7.7); Neutrophils % 58.8 %; Nucleated Red Blood Cells % 0 %; Platelet Count 169 10^3/cmm (130-400); Red Blood Count 4.89 10^6/uL (4.1-5.3); Red Cell Distribution Width 18.2 % (12.1-15.1); White Blood Count 5.3 10^3/uL (4.0-10.0)
[2022-05-23 09:20] LABS: Alanine Aminotransferase 14 U/L (0-33); Alkaline Phosphatase 78 U/L (35-105); Anion Gap 14.8 (5-19); Aspartate Amino Transferase 15 U/L (0-32); Blood Urea Nitrogen 10 mg/dL (8-23); Carbon Dioxide 25 mmol/L (22-29); Chloride 105 mmol/L (98-107); Globulin 2.7 g/dL (1.3-4.6); Glucose 127 mg/dL (65-115); Osmolality Calculated 293 mOsm/kg (285-295); Potassium 3.8 mmol/L (3.5-5.1); Sodium 141 mmol/L (136-145); Total Bilirubin 0.2 mg/dL (0.15-1.2); Total Protein 6.7 g/dL (6.6-8.7)
[2022-05-23] MEDS: dextrose 5% 250 ML 75 ML IV (10:11)
[2022-05-23] MEDS: palonosetron 0.25 mg/5 mL SDV IVP (10:11)
[2022-05-23] MEDS: fosaprepitant 150 MG in sodium chloride 0.9% 50 ML, sodium chloride 0.9% (100 ml) 100 ML 300 MG IV (10:14)
[2022-05-23] MEDS: leucovorin 910 MG in dextrose 5% 250 ML 62.5 MG IV (10:53)
[2022-05-23] MEDS: oxaliplatin 100 MG, oxaliplatin 46 MG in dextrose 5% 250 ML 69.8 MG IV (10:53)
[2022-05-23 14:07] VITALS: BP 155/84; PULSE 75; RESP 16; TEMP 36.7; O2SAT 97
[2022-05-23] MEDS: fluorouraciL 5,450 MG, elastomeric pump 1 PUMP in sodium chloride 0.9% (100 ml) 121 ML IV (14:09)
[2022-05-25 12:58] VITALS: BP 148/84; PULSE 90; RESP 16; TEMP 36.3; O2SAT 99
== END 2022-06-06 23:59 | disposition home or self-care (01) ==
PROVIDERS: PCP Family Medicine; Visit Provider Internal Medicine Medical Oncology
DX: C18.3 Malignant neoplasm of hepatic flexure (principal); C77.8 Secondary and unspecified malignant neoplasm of lymph nodes of multiple regions; Z79.899 Other long term (current) drug therapy
CPT/HCPCS: 36415; 80053; 85025; 96367; 96368; 96375; 96413; 96415; 96416; 96523; 99213; 99214; J0640; J1100; J1453; J2469; J2997; J7060; J9190; J9263

== ENCOUNTER → 2022-06-21 09:42 | Outpatient (BNVA) | payer MEDICARE, OTHER, SELFPAY | PROVIDERS: PCP Family Medicine; Visit Provider Nurse Practitioner | DX: C18.3 Malignant neoplasm of hepatic flexure (principal) | CPT/HCPCS: 99214 ==

== ENCOUNTER 2022-07-04 08:30 | Oncology outpatient (recurring) (ONCR) | payer MEDICARE, OTHER, SELFPAY ==
[2022-06-07 10:22] LABS: Basophils # 0.1 10^3/uL (0.0-0.1); Eosinophils # 0.1 10^3/uL (0.0-0.8); Eosinophils % 1.9 %; Hemoglobin 12.8 g/dL (11.5-15.3); Lymphocytes # 1.7 10^3/uL (0.8-4.8); Lymphocytes % 28.9 %; Mean Corpuscular HGB Conc 31.2 g/dL (30.0-36.0); Mean Corpuscular Hemoglobin 26.2 pg (28.0-34.0); Mean Corpuscular Volume 83.8 fl (81-99); Mean Platelet Volume 10.2 fL (7.4-10.4); Monocytes # 0.8 10^3/uL (0.2-0.9); Monocytes % 13.3 %; Neutrophils # 3.21 10^3/uL (1.8-7.7); Neutrophils % 54.6 %; Nucleated Red Blood Cells % 0 %; Platelet Count 169 10^3/cmm (130-400); Red Blood Count 4.89 10^6/uL (4.1-5.3); Red Cell Distribution Width 18.2 % (12.1-15.1); White Blood Count 5.9 10^3/uL (4.0-10.0)
[2022-06-07 10:44] LABS: Alanine Aminotransferase 15 U/L (0-33); Albumin Level 3.7 g/dL (3.5-5.2); Alkaline Phosphatase 79 U/L (35-105); Anion Gap 13.6 (5-19); Aspartate Amino Transferase 18 U/L (0-32); Blood Urea Nitrogen 9 mg/dL (8-23); Carbon Dioxide 25 mmol/L (22-29); Chloride 106 mmol/L (98-107); Globulin 2.7 g/dL (1.3-4.6); Glucose 121 mg/dL (65-115); Osmolality Calculated 292 mOsm/kg (285-295); Potassium 3.6 mmol/L (3.5-5.1); Sodium 141 mmol/L (136-145); Total Bilirubin 0.2 mg/dL (0.15-1.2); Total Protein 6.4 g/dL (6.6-8.7)
[2022-06-07] MEDS: dextrose 5% 250 ML 75 ML IV (11:18)
[2022-06-07] MEDS: palonosetron 0.25 mg/5 mL SDV IVP (11:20)
[2022-06-07] MEDS: fosaprepitant 150 MG in sodium chloride 0.9% 50 ML, sodium chloride 0.9% (100 ml) 100 ML 300 MG IV (12:18)
[2022-06-07] MEDS: oxaliplatin 100 MG, oxaliplatin 40 MG in dextrose 5% 250 ML 69.5 MG IV (12:39)
[2022-06-07] MEDS: leucovorin 870 MG in dextrose 5% 250 ML 62.5 MG IV (12:40)
[2022-06-07 16:00] VITALS: BP 168/71; PULSE 80; RESP 16; TEMP 37; O2SAT 95
[2022-06-07] MEDS: ELASTOMERIC PUMP PUMP IV (16:00)
[2022-06-07] MEDS: FLUOROURACIL IV (16:00)
[2022-06-07] MEDS: SODIUM CHLORIDE IV (16:00)
[2022-06-21 10:13] LABS: Basophils # 0.1 10^3/uL (0.0-0.1); Basophils % 0.7 %; Eosinophils # 0.2 10^3/uL (0.0-0.8); Eosinophils % 2.4 %; Hematocrit 40.9 % (37.0-47.0); Hemoglobin 12.4 g/dL (11.5-15.3); Lymphocytes # 1.6 10^3/uL (0.8-4.8); Lymphocytes % 22.5 %; Mean Corpuscular HGB Conc 30.3 g/dL (30.0-36.0); Mean Corpuscular Hemoglobin 25.8 pg (28.0-34.0); Mean Corpuscular Volume 85.2 fl (81-99); Mean Platelet Volume 10.6 fL (7.4-10.4); Monocytes # 0.8 10^3/uL (0.2-0.9); Monocytes % 11.2 %; Neutrophils # 4.46 10^3/uL (1.8-7.7); Neutrophils % 62.6 %; Nucleated Red Blood Cells % 0 %; Platelet Count 136 10^3/cmm (130-400); Red Cell Distribution Width 18.7 % (12.1-15.1); White Blood Count 7.1 10^3/uL (4.0-10.0)
[2022-06-21 10:32] LABS: Alanine Aminotransferase 18 U/L (0-33); Albumin Level 3.7 g/dL (3.5-5.2); Alkaline Phosphatase 76 U/L (35-105); Anion Gap 16.8 (5-19); Aspartate Amino Transferase 20 U/L (0-32); Blood Urea Nitrogen 11 mg/dL (8-23); Calcium 9.2 mg/dL (8.5-10.5); Carbon Dioxide 22 mmol/L (22-29); Chloride 106 mmol/L (98-107); Globulin 2.8 g/dL (1.3-4.6); Glucose 126 mg/dL (65-115); Osmolality Calculated 293 mOsm/kg (285-295); Potassium 3.8 mmol/L (3.5-5.1); Sodium 141 mmol/L (136-145); Total Bilirubin 0.2 mg/dL (0.15-1.2); Total Protein 6.5 g/dL (6.6-8.7)
[2022-06-21] MEDS: alteplase 1 mg/mL SDV 2 mL 2 MG INTRACATH (12:06)
[2022-06-21] MEDS: dextrose 5% 250 ML 75 ML IV (12:10)
[2022-06-21] MEDS: fosaprepitant 150 MG in sodium chloride 0.9% 50 ML, sodium chloride 0.9% (100 ml) 100 ML 300 MG IV (12:15)
[2022-06-21] MEDS: oxaliplatin 100 MG, oxaliplatin 40 MG in dextrose 5% 250 ML 69.5 MG IV (12:52)
[2022-06-21] MEDS: leucovorin 880 MG in dextrose 5% 250 ML 62.5 MG IV (12:53)
[2022-06-21] MEDS: FLUOROURACIL IV (16:14)
[2022-06-21] MEDS: SODIUM CHLORIDE IV (16:14)
[2022-06-21] MEDS: ELASTOMERIC PUMP PUMP IV (16:14)
[2022-06-21 16:48] VITALS: BP 158/74; PULSE 76; TEMP 36.9; O2SAT 96
[2022-07-04 08:56] LABS: Basophils # 0.1 10^3/uL (0.0-0.1); Eosinophils # 0.2 10^3/uL (0.0-0.8); Eosinophils % 2.2 %; Hematocrit 40.8 % (37.0-47.0); Hemoglobin 12.7 g/dL (11.5-15.3); Lymphocytes # 1.8 10^3/uL (0.8-4.8); Lymphocytes % 25.7 %; Mean Corpuscular HGB Conc 31.1 g/dL (30.0-36.0); Mean Corpuscular Hemoglobin 26.5 pg (28.0-34.0); Mean Platelet Volume 10.3 fL (7.4-10.4); Monocytes # 0.9 10^3/uL (0.2-0.9); Monocytes % 13.3 %; Neutrophils # 3.97 10^3/uL (1.8-7.7); Neutrophils % 57.4 %; Nucleated Red Blood Cells % 0 %; Platelet Count 136 10^3/cmm (130-400); Red Cell Distribution Width 19.6 % (12.1-15.1); White Blood Count 6.9 10^3/uL (4.0-10.0)
[2022-07-04 09:40] LABS: Carcinoembryonic Antigen 2.8 ng/mL (0.0-4.7)
[2022-07-04 09:51] LABS: Alanine Aminotransferase 19 U/L (0-33); Albumin Level 3.9 g/dL (3.5-5.2); Alkaline Phosphatase 88 U/L (35-105); Anion Gap 17.8 (5-19); Aspartate Amino Transferase 22 U/L (0-32); Blood Urea Nitrogen 9 mg/dL (8-23); Calcium 9.4 mg/dL (8.5-10.5); Carbon Dioxide 23 mmol/L (22-29); Chloride 106 mmol/L (98-107); Globulin 2.8 g/dL (1.3-4.6); Glucose 124 mg/dL (65-115); Osmolality Calculated 296 mOsm/kg (285-295); Potassium 3.8 mmol/L (3.5-5.1); Sodium 143 mmol/L (136-145); Total Bilirubin 0.4 mg/dL (0.15-1.2); Total Protein 6.7 g/dL (6.6-8.7)
[2022-07-04] MEDS: palonosetron 0.25 mg/5 mL SDV IVP (10:27)
[2022-07-04] MEDS: dextrose 5% 250 ML 75 ML IV (10:27)
[2022-07-04] MEDS: fosaprepitant 150 MG in sodium chloride 0.9% 50 ML, sodium chloride 0.9% (100 ml) 100 ML 300 MG IV (10:31)
[2022-07-04] MEDS: oxaliplatin 100 MG, oxaliplatin 40 MG in dextrose 5% 250 ML 69.5 MG IV (11:30)
[2022-07-04] MEDS: leucovorin 880 MG in dextrose 5% 250 ML 62.5 MG IV (11:30)
[2022-07-04] MEDS: SODIUM CHLORIDE IV (14:49)
[2022-07-04] MEDS: ELASTOMERIC PUMP PUMP IV (14:49)
[2022-07-04] MEDS: FLUOROURACIL IV (14:49)
[2022-07-04 15:00] VITALS: BP 189/74; PULSE 84; RESP 16; TEMP 36.2; O2SAT 98
== END 2022-07-04 23:59 | disposition home or self-care (01) ==
PROVIDERS: PCP Family Medicine; Visit Provider Internal Medicine Medical Oncology
DX: C18.3 Malignant neoplasm of hepatic flexure (principal); Z51.11 Encounter for antineoplastic chemotherapy; Z79.52 Long term (current) use of systemic steroids; G62.0 Drug-induced polyneuropathy; T45.1X5A Adverse effect of antineoplastic and immunosuppressive drugs, initial encounter; Z90.49 Acquired absence of other specified parts of digestive tract; Z79.899 Other long term (current) drug therapy
CPT/HCPCS: 80053; 82378; 85025; 96367; 96368; 96375; 96413; 96415; 96416; 96523; 99214; J0640; J1100; J1453; J2469; J2997; J7060; J9190; J9263

== ENCOUNTER → 2022-08-02 09:09 | Outpatient (BNVA) | payer MEDICARE, OTHER, SELFPAY | PROVIDERS: PCP Family Medicine; Visit Provider Nurse Practitioner Family | DX: C18.3 Malignant neoplasm of hepatic flexure (principal) | CPT/HCPCS: 99214 ==

== ENCOUNTER 2022-08-04 11:00 | Oncology outpatient (recurring) (ONCR) | payer MEDICARE, OTHER, SELFPAY ==
[2022-07-06 13:13] VITALS: BP 159/82; PULSE 75; RESP 17; TEMP 36.9; O2SAT 98
[2022-07-18 08:38] LABS: Basophils # 0.1 10^3/uL (0.0-0.1); Basophils % 0.9 %; Eosinophils # 0.2 10^3/uL (0.0-0.8); Eosinophils % 3.2 %; Hematocrit 40.5 % (37.0-47.0); Hemoglobin 12.4 g/dL (11.5-15.3); Lymphocytes # 1.6 10^3/uL (0.8-4.8); Mean Corpuscular HGB Conc 30.6 g/dL (30.0-36.0); Mean Corpuscular Hemoglobin 26.8 pg (28.0-34.0); Mean Corpuscular Volume 87.7 fl (81-99); Mean Platelet Volume 10.9 fL (7.4-10.4); Monocytes # 0.8 10^3/uL (0.2-0.9); Monocytes % 12.5 %; Neutrophils # 3.81 10^3/uL (1.8-7.7); Neutrophils % 58.2 %; Nucleated Red Blood Cells % 0 %; Platelet Count 151 10^3/cmm (130-400); Red Blood Count 4.62 10^6/uL (4.1-5.3); White Blood Count 6.6 10^3/uL (4.0-10.0)
[2022-07-18 09:02] LABS: Alanine Aminotransferase 20 U/L (0-33); Albumin Level 3.7 g/dL (3.5-5.2); Alkaline Phosphatase 90 U/L (35-105); Aspartate Amino Transferase 21 U/L (0-32); Blood Urea Nitrogen 7 mg/dL (8-23); Calcium 9.2 mg/dL (8.5-10.5); Carbon Dioxide 24 mmol/L (22-29); Chloride 107 mmol/L (98-107); Globulin 2.9 g/dL (1.3-4.6); Glucose 161 mg/dL (65-115); Osmolality Calculated 297 mOsm/kg (285-295); Sodium 143 mmol/L (136-145); Total Bilirubin 0.4 mg/dL (0.15-1.2); Total Protein 6.6 g/dL (6.6-8.7)
[2022-07-18] MEDS: fosaprepitant 150 MG in sodium chloride 0.9% 50 ML, sodium chloride 0.9% (100 ml) 100 ML 300 MG IV (11:30)
[2022-07-18] MEDS: dextrose 5% 250 ML 100 ML IV (11:30)
[2022-07-18] MEDS: palonosetron 0.25 mg/5 mL SDV IVP (11:32)
[2022-07-18] MEDS: leucovorin 880 MG in dextrose 5% 250 ML 62.5 MG IV (12:26)
[2022-07-18] MEDS: oxaliplatin 100 MG, oxaliplatin 40 MG in dextrose 5% 250 ML 69.5 MG IV (12:26)
[2022-07-18] MEDS: FLUOROURACIL IV (15:32)
[2022-07-18] MEDS: SODIUM CHLORIDE IV (15:32)
[2022-07-18] MEDS: ELASTOMERIC PUMP PUMP IV (15:32)
[2022-07-18 15:55] VITALS: BP 186/80; PULSE 92; TEMP 36.7; O2SAT 97
[2022-08-02 10:14] LABS: Alanine Aminotransferase 14 U/L (0-33); Albumin Level 3.7 g/dL (3.5-5.2); Alkaline Phosphatase 81 U/L (35-105); Anion Gap 16.6 (5-19); Aspartate Amino Transferase 19 U/L (0-32); Blood Urea Nitrogen 10 mg/dL (8-23); Calcium 8.9 mg/dL (8.5-10.5); Carbon Dioxide 23 mmol/L (22-29); Chloride 105 mmol/L (98-107); Globulin 2.9 g/dL (1.3-4.6); Glucose 132 mg/dL (65-115); Osmolality Calculated 293 mOsm/kg (285-295); Potassium 3.6 mmol/L (3.5-5.1); Sodium 141 mmol/L (136-145); Total Bilirubin 0.4 mg/dL (0.15-1.2); Total Protein 6.6 g/dL (6.6-8.7)
[2022-08-02 10:47] LABS: Basophils # 0.1 10^3/uL (0.0-0.1); Basophils % 1.2 %; Eosinophils # 0.2 10^3/uL (0.0-0.8); Eosinophils % 3.5 %; Hematocrit 36.5 % (37.0-47.0); Hemoglobin 11.4 g/dL (11.5-15.3); Lymphocytes # 1.3 10^3/uL (0.8-4.8); Lymphocytes % 22.3 %; Mean Corpuscular HGB Conc 31.2 g/dL (30.0-36.0); Mean Corpuscular Hemoglobin 27.7 pg (28.0-34.0); Mean Corpuscular Volume 88.8 fl (81-99); Monocytes # 0.9 10^3/uL (0.2-0.9); Monocytes % 14.2 %; Neutrophils # 3.52 10^3/uL (1.8-7.7); Neutrophils % 58.6 %; Nucleated Red Blood Cells % 0 %; Platelet Count 146 10^3/cmm (130-400); Red Blood Count 4.11 10^6/uL (4.1-5.3); Red Cell Distribution Width 18.6 % (12.1-15.1)
[2022-08-02] MEDS: dextrose 5% 250 ML 75 ML IV (12:14)
[2022-08-02] MEDS: palonosetron 0.25 mg/5 mL SDV IVP (12:16)
[2022-08-02] MEDS: fosaprepitant 150 MG in sodium chloride 0.9% 50 ML, sodium chloride 0.9% (100 ml) 100 ML 300 MG IV (12:47)
[2022-08-02] MEDS: oxaliplatin 100 MG, oxaliplatin 40 MG in dextrose 5% 250 ML 69.5 MG IV (13:14)
[2022-08-02] MEDS: leucovorin 880 MG in dextrose 5% 250 ML 62.5 MG IV (13:14)
[2022-08-02 16:45] VITALS: BP 177/80; PULSE 86; RESP 16; TEMP 36.8; O2SAT 98
[2022-08-02] MEDS: SODIUM CHLORIDE IV (16:45)
[2022-08-02] MEDS: FLUOROURACIL IV (16:45)
[2022-08-02] MEDS: ELASTOMERIC PUMP PUMP IV (16:45)
[2022-08-04 11:11] VITALS: BP 188/68; PULSE 77; RESP 18; TEMP 36.3; O2SAT 98
== END 2022-08-04 23:59 | disposition home or self-care (01) ==
PROVIDERS: Nurse Practitioner Family; PCP Family Medicine; Visit Provider Internal Medicine Medical Oncology
DX: C18.3 Malignant neoplasm of hepatic flexure
CPT/HCPCS: 80053; 85025; 96367; 96368; 96375; 96413; 96415; 96416; 96417; 96523; 99214; J0640; J1100; J1453; J2469; J7060; J9190; J9263

== ENCOUNTER → 2022-08-28 09:52 | Outpatient (BNVA) | payer MEDICARE, OTHER, SELFPAY | PROVIDERS: PCP Family Medicine; Visit Provider Nurse Practitioner Family | DX: C18.3 Malignant neoplasm of hepatic flexure (principal) | CPT/HCPCS: 99214 ==

== ENCOUNTER 2022-08-30 12:21 | Oncology outpatient (recurring) (ONCR) | payer MEDICARE, OTHER, SELFPAY ==
[2022-08-16 09:16] VITALS: BP 164/71; PULSE 77; RESP 16; TEMP 36.3; O2SAT 97
[2022-08-16 10:04] LABS: Basophils # 0.1 10^3/uL (0.0-0.1); Basophils % 1.1 %; Eosinophils # 0.3 10^3/uL (0.0-0.8); Eosinophils % 5.2 %; Hematocrit 38.6 % (37.0-47.0); Lymphocytes # 1.6 10^3/uL (0.8-4.8); Lymphocytes % 29.6 %; Mean Corpuscular HGB Conc 31.1 g/dL (30.0-36.0); Mean Corpuscular Hemoglobin 27.8 pg (28.0-34.0); Mean Corpuscular Volume 89.4 fl (81-99); Mean Platelet Volume 11.5 fL (7.4-10.4); Monocytes # 0.8 10^3/uL (0.2-0.9); Monocytes % 15.1 %; Neutrophils # 2.62 10^3/uL (1.8-7.7); Neutrophils % 48.8 %; Nucleated Red Blood Cells % 0 %; Platelet Count 154 10^3/cmm (130-400); Red Blood Count 4.32 10^6/uL (4.1-5.3); Red Cell Distribution Width 17.7 % (12.1-15.1); White Blood Count 5.4 10^3/uL (4.0-10.0)
[2022-08-16 10:49] LABS: Alanine Aminotransferase 16 U/L (0-33); Albumin Level 3.8 g/dL (3.5-5.2); Alkaline Phosphatase 83 U/L (35-105); Aspartate Amino Transferase 21 U/L (0-32); Blood Urea Nitrogen 12 mg/dL (8-23); Calcium 9.5 mg/dL (8.5-10.5); Carbon Dioxide 22 mmol/L (22-29); Chloride 107 mmol/L (98-107); Glucose 125 mg/dL (65-115); Osmolality Calculated 295 mOsm/kg (285-295); Sodium 142 mmol/L (136-145); Total Bilirubin 0.5 mg/dL (0.15-1.2); Total Protein 6.8 g/dL (6.6-8.7)
[2022-08-16] MEDS: ondansetron 2 mg/ML SDV 2 mL 8 MG IVP (11:38)
[2022-08-16] MEDS: leucovorin 880 MG in dextrose 5% 250 ML 62.5 MG IV (12:05)
[2022-08-16] MEDS: fluorouraciL 50 mg/ml MDV 100 mL 900 MG IVP (12:50)
[2022-08-16] MEDS: FLUOROURACIL IV (12:51)
[2022-08-16] MEDS: SODIUM CHLORIDE IV (12:51)
[2022-08-16] MEDS: ELASTOMERIC PUMP PUMP IV (12:51)
[2022-08-16 13:05] VITALS: BP 143/71; PULSE 69; RESP 16; TEMP 36; O2SAT 98
[2022-08-18 10:04] VITALS: BP 162/68; PULSE 83; RESP 18; TEMP 36.5; O2SAT 97
[2022-08-28 10:19] VITALS: BMI 39.0
[2022-08-28 10:21] VITALS: BP 151/77; PULSE 73; RESP 18; TEMP 36.7; O2SAT 96
[2022-08-28 10:30] LABS: Basophils # 0.1 10^3/uL (0.0-0.1); Basophils % 0.9 %; Eosinophils # 0.2 10^3/uL (0.0-0.8); Eosinophils % 3.5 %; Hematocrit 37.5 % (37.0-47.0); Hemoglobin 11.8 g/dL (11.5-15.3); Lymphocytes # 1.9 10^3/uL (0.8-4.8); Lymphocytes % 27.6 %; Mean Corpuscular HGB Conc 31.5 g/dL (30.0-36.0); Mean Corpuscular Hemoglobin 28.6 pg (28.0-34.0); Mean Corpuscular Volume 90.8 fl (81-99); Mean Platelet Volume 10.6 fL (7.4-10.4); Monocytes # 0.7 10^3/uL (0.2-0.9); Monocytes % 10.1 %; Neutrophils # 3.94 10^3/uL (1.8-7.7); Neutrophils % 57.5 %; Nucleated Red Blood Cells % 0 %; Platelet Count 149 10^3/cmm (130-400); Red Blood Count 4.13 10^6/uL (4.1-5.3); White Blood Count 6.9 10^3/uL (4.0-10.0)
[2022-08-28 10:52] LABS: Alanine Aminotransferase 15 U/L (0-33); Albumin Level 3.9 g/dL (3.5-5.2); Alkaline Phosphatase 98 U/L (35-105); Anion Gap 13.5 (5-19); Aspartate Amino Transferase 18 U/L (0-32); Blood Urea Nitrogen 10 mg/dL (8-23); Calcium 8.8 mg/dL (8.5-10.5); Carbon Dioxide 24 mmol/L (22-29); Chloride 107 mmol/L (98-107); Globulin 2.6 g/dL (1.3-4.6); Glucose 114 mg/dL (65-115); Osmolality Calculated 292 mOsm/kg (285-295); Potassium 3.5 mmol/L (3.5-5.1); Sodium 141 mmol/L (136-145); Total Bilirubin 0.4 mg/dL (0.15-1.2); Total Protein 6.5 g/dL (6.6-8.7)
[2022-08-28] MEDS: dextrose 5% 250 ML 50 ML IV (12:22)
[2022-08-28] MEDS: ondansetron 2 mg/ML SDV 2 mL 8 MG IVP (12:59)
[2022-08-28] MEDS: leucovorin 860 MG in dextrose 5% 250 ML 62.5 MG IV (13:13)
[2022-08-28] MEDS: fluorouraciL 50 mg/ml MDV 100 mL 850 MG IVP (14:00)
[2022-08-28] MEDS: fluorouraciL 5,200 MG, elastomeric pump 1 PUMP in sodium chloride 0.9% (100 ml) 126 ML IV (14:00)
[2022-08-28 14:12] VITALS: BP 175/72; PULSE 71; RESP 16; TEMP 36; O2SAT 97
[2022-08-30 12:43] VITALS: BP 180/82; PULSE 70; TEMP 36.5; O2SAT 99
== END 2022-09-03 23:59 | disposition home or self-care (01) ==
PROVIDERS: Nurse Practitioner Family; PCP Family Medicine; Visit Provider Internal Medicine Medical Oncology
DX: Z45.2 Encounter for adjustment and management of vascular access device (principal)
CPT/HCPCS: 80053; 82378; 85025; 96367; 96368; 96375; 96413; 96416; 96523; 99214; J0640; J1100; J1642; J2405; J7060; J9190

== ENCOUNTER 2022-09-14 11:30 | Oncology outpatient (recurring) (ONCR) | payer MEDICARE, OTHER, SELFPAY ==
[2022-09-12 08:15] VITALS: BMI 38.4
[2022-09-12 09:01] LABS: Basophils # 0.1 10^3/uL (0.0-0.1); Eosinophils # 0.2 10^3/uL (0.0-0.8); Eosinophils % 3.8 %; Hematocrit 36.4 % (37.0-47.0); Hemoglobin 11.3 g/dL (11.5-15.3); Lymphocytes # 2.1 10^3/uL (0.8-4.8); Mean Corpuscular Hemoglobin 28.4 pg (28.0-34.0); Mean Corpuscular Volume 91.5 fl (81-99); Mean Platelet Volume 11.2 fL (7.4-10.4); Monocytes # 0.8 10^3/uL (0.2-0.9); Monocytes % 12.2 %; Neutrophils # 3.13 10^3/uL (1.8-7.7); Neutrophils % 49.7 %; Nucleated Red Blood Cells % 0 %; Platelet Count 160 10^3/cmm (130-400); Red Blood Count 3.98 10^6/uL (4.1-5.3); Red Cell Distribution Width 17.6 % (12.1-15.1); White Blood Count 6.3 10^3/uL (4.0-10.0)
[2022-09-12 09:20] LABS: Albumin Level 3.9 g/dL (3.5-5.2); Alkaline Phosphatase 93 U/L (35-105); Anion Gap 15.4 (5-19); Aspartate Amino Transferase 27 U/L (0-32); Blood Urea Nitrogen 12 mg/dL (8-23); Calcium 9.4 mg/dL (8.5-10.5); Carbon Dioxide 26 mmol/L (22-29); Chloride 103 mmol/L (98-107); Globulin 2.7 g/dL (1.3-4.6); Glucose 107 mg/dL (65-115); Osmolality Calculated 292 mOsm/kg (285-295); Potassium 3.4 mmol/L (3.5-5.1); Sodium 141 mmol/L (136-145); Total Bilirubin 0.6 mg/dL (0.15-1.2); Total Protein 6.6 g/dL (6.6-8.7)
[2022-09-12 09:30] LABS: Alanine Aminotransferase 21 U/L (0-33)
[2022-09-12] MEDS: dextrose 5% 250 ML 75 ML IV (10:21)
[2022-09-12] MEDS: palonosetron 0.25 mg/5 mL SDV IVP (10:24)
[2022-09-12] MEDS: fosaprepitant 150 MG in sodium chloride 0.9% 50 ML, sodium chloride 0.9% (100 ml) 100 ML 300 MG IV (11:28)
[2022-09-12] MEDS: leucovorin 880 MG in dextrose 5% 250 ML 62.5 MG IV (12:10)
[2022-09-12] MEDS: fluorouraciL 4,250 MG, elastomeric pump 1 PUMP in sodium chloride 0.9% (100 ml) 7 ML IV (13:01)
[2022-09-12 13:07] VITALS: BP 148/56; PULSE 71; RESP 18; TEMP 36.3; O2SAT 96
[2022-09-14 12:15] VITALS: BP 173/67; PULSE 63; RESP 18; TEMP 36.2; O2SAT 98
== END 2022-10-04 23:59 | disposition home or self-care (01) ==
PROVIDERS: PCP Family Medicine; Visit Provider Internal Medicine Medical Oncology
DX: C18.3 Malignant neoplasm of hepatic flexure; C77.8 Secondary and unspecified malignant neoplasm of lymph nodes of multiple regions
CPT/HCPCS: 80053; 85025; 96367; 96368; 96375; 96413; 96416; 96523; 99214; J0640; J1100; J1453; J1642; J2469; J7060; J9190

== ENCOUNTER 2022-10-19 11:03 | Oncology outpatient (recurring) (ONCR) | payer MEDICARE, OTHER, SELFPAY ==
[2022-10-19 11:22] VITALS: BP 153/71; PULSE 82; RESP 18; TEMP 36.5; O2SAT 96
[2022-10-19 11:36] LABS: Basophils # 0.1 10^3/uL (0.0-0.1); Basophils % 0.9 %; Eosinophils # 0.2 10^3/uL (0.0-0.8); Eosinophils % 2.8 %; Hematocrit 39.5 % (37.0-47.0); Hemoglobin 12.4 g/dL (11.5-15.3); Lymphocytes % 25.4 %; Mean Corpuscular HGB Conc 31.4 g/dL (30.0-36.0); Mean Corpuscular Hemoglobin 28.8 pg (28.0-34.0); Mean Corpuscular Volume 91.9 fl (81-99); Mean Platelet Volume 11.1 fL (7.4-10.4); Monocytes # 0.7 10^3/uL (0.2-0.9); Monocytes % 9.1 %; Neutrophils # 4.82 10^3/uL (1.8-7.7); Neutrophils % 61.3 %; Nucleated Red Blood Cells % 0 %; Platelet Count 184 10^3/cmm (130-400); White Blood Count 7.9 10^3/uL (4.0-10.0)
[2022-10-19 12:19] LABS: Carcinoembryonic Antigen 2.5 ng/mL (0.0-4.7)
[2022-10-19 12:33] LABS: Alanine Aminotransferase 9 U/L (0-33); Albumin Level 3.7 g/dL (3.5-5.2); Alkaline Phosphatase 83 U/L (35-105); Anion Gap 14.7 (5-19); Aspartate Amino Transferase 14 U/L (0-32); Blood Urea Nitrogen 6 mg/dL (8-23); Calcium 9.1 mg/dL (8.5-10.5); Carbon Dioxide 23 mmol/L (22-29); Chloride 107 mmol/L (98-107); Globulin 2.5 g/dL (1.3-4.6); Glucose 140 mg/dL (65-115); Osmolality Calculated 292 mOsm/kg (285-295); Potassium 3.7 mmol/L (3.5-5.1); Sodium 141 mmol/L (136-145); Total Bilirubin 0.4 mg/dL (0.15-1.2); Total Protein 6.2 g/dL (6.6-8.7)
== END 2022-11-03 23:59 | disposition home or self-care (01) ==
PROVIDERS: PCP Family Medicine; Visit Provider Internal Medicine Medical Oncology
DX: C18.3 Malignant neoplasm of hepatic flexure; G56.92 Unspecified mononeuropathy of left upper limb; Z79.52 Long term (current) use of systemic steroids; Z79.899 Other long term (current) drug therapy; C77.8 Secondary and unspecified malignant neoplasm of lymph nodes of multiple regions
CPT/HCPCS: 36591; 80053; 82378; 85025; 99213; J1642

== ENCOUNTER 2022-11-29 09:03 | Oncology outpatient (recurring) (ONCR) | payer MEDICARE, OTHER, SELFPAY ==
[2022-11-29 09:06] VITALS: BP 173/84; PULSE 75; RESP 18; TEMP 36.2; O2SAT 97
== END 2022-12-04 23:59 | disposition home or self-care (01) ==
PROVIDERS: PCP Family Medicine; Visit Provider Internal Medicine Medical Oncology
DX: Z45.2 Encounter for adjustment and management of vascular access device (principal)
CPT/HCPCS: 96523; J1642

== ENCOUNTER 2023-01-24 11:30 | Oncology outpatient (recurring) (ONCR) | payer MEDICARE, OTHER, SELFPAY ==
[2023-01-12 08:50] VITALS: BP 184/59; PULSE 79; RESP 16; TEMP 36.5; O2SAT 97
[2023-01-24 11:44] VITALS: BP 158/69; PULSE 71; RESP 16; TEMP 36.8; O2SAT 97
[2023-01-24 11:59] LABS: Basophils # 0.1 10^3/uL (0.0-0.1); Basophils % 0.6 %; Eosinophils # 0.2 10^3/uL (0.0-0.8); Eosinophils % 2.9 %; Lymphocytes # 1.9 10^3/uL (0.8-4.8); Mean Corpuscular Hemoglobin 26.2 pg (27-33); Mean Corpuscular Volume 84.6 fl (85-98); Mean Platelet Volume 10.8 fL (7.4-10.4); Monocytes # 0.8 10^3/uL (0.2-0.9); Monocytes % 10.3 %; Neutrophils # 4.82 10^3/uL (1.8-7.7); Neutrophils % 61.7 %; Nucleated Red Blood Cells % 0 %; Platelet Count 200 10^3/cmm (157-399); Red Blood Count 4.61 10^6/uL (3.85-5.65); Red Cell Distribution Width 14.3 % (12.1-15.1); White Blood Count 7.83 10^3/uL (3.29-11.43)
[2023-01-24 12:39] LABS: Alanine Aminotransferase 10 U/L (0-33); Albumin Level 3.9 g/dL (3.5-5.2); Alkaline Phosphatase 102 U/L (35-105); Anion Gap 11.1 (5-19); Aspartate Amino Transferase 13 U/L (0-32); Blood Urea Nitrogen 12 mg/dL (8-23); Calcium 8.8 mg/dL (8.5-10.5); Carbon Dioxide 27 mmol/L (22-29); Chloride 106 mmol/L (98-107); Globulin 2.5 g/dL (1.3-4.6); Glucose 122 mg/dL (65-115); Osmolality Calculated 291 mOsm/kg (285-295); Potassium 4.1 mmol/L (3.5-5.1); Sodium 140 mmol/L (136-145); Total Bilirubin 0.3 mg/dL (0.15-1.2); Total Protein 6.4 g/dL (6.6-8.7)
== END 2023-02-03 23:59 | disposition home or self-care (01) ==
PROVIDERS: PCP Family Medicine; Visit Provider Internal Medicine Medical Oncology
DX: Z95.828 Presence of other vascular implants and grafts; Z51.11 Encounter for antineoplastic chemotherapy; C18.3 Malignant neoplasm of hepatic flexure; C77.0 Secondary and unspecified malignant neoplasm of lymph nodes of head, face and neck
CPT/HCPCS: 36591; 80053; 82378; 85025; 96523; 99214; J1642

== ENCOUNTER → 2023-01-30 09:16 | Outpatient (BNVA) | payer MEDICARE, OTHER, SELFPAY | PROVIDERS: PCP Family Medicine; Referring Provider Nurse Practitioner Family; Visit Provider Surgery | DX: Z12.11 Encounter for screening for malignant neoplasm of colon (principal); K21.9 Gastro-esophageal reflux disease without esophagitis | CPT/HCPCS: 99213 ==

== ENCOUNTER 2023-02-07 13:31 | Outpatient (CLI) | payer MEDICARE, OTHER, SELFPAY ==
--- NOTE | 2023-02-07 14:30 | CT_ITS ---
WS: [id number] CT CHEST, ABDOMEN, AND PELVIS TECHNIQUE: Contrast-enhanced CT of the chest, abdomen, and pelvis with coronal and sagittal reformatt ed images. CLINICAL INFORMATION: surveillance COMPARISON: CT chest 03/03/2022 and abdomen/pelvis 02/08/2022 DLP: 1364.[address] scans at [facility] use at least one of these dose optimization techniques: automated e xposure control; mA and/or kV adjustment per patient size (includes targeted exams where dose is matc hed to clinical indication); or iterative reconstruction. CT CHEST: Normal caliber thoracic aorta. Aortic calcification. Coronary calcification. Proximal main pulmonary arteries are patent. Multinodular thyroid worse in the RIGHT. No mediastinal or hilar lymph adenopathy. No axillary lymphadenopathy. Moderate thoracic kyphosis with ankylosis. 5 mm nodule RIGHT middle lobe is stable. Additional tiny s ubpleural nodule RIGHT middle lobe is stable. CT ABDOMEN AND PELVIS:Mild diffuse fatty infiltration of the liver. Normal pancreatic parenchymal enh ancement. Normal portal vein and splenic vein. Normal spleen. Normal caliber abdominal aorta. Small L EFT adrenal adenoma measuring 10 mm is stable. Normal renal parenchymal enhancement. Tiny bilateral r enal cysts. Tortuous sigmoid colon. Prior partial colectomy. No abdominal or pelvic lymphadenopathy. No inguinal lymphadenopathy. Prior hysterectomy. Prior cholecystectomy. IMPRESSION: 1. No evidence of new or progressed metastatic disease. 2. No lymphadenopathy in the chest abdomen or pelvis. 3. Stable 5 mm nodule RIGHT middle lobe. 4. Prior cholecystectomy. 5. Diffuse fatty infiltration of the liver. 6. No other suspicious findings.
[2023-02-07] MEDS: iohexol 350 mg/mL 500 mL Btl (per mL) PO (15:11)
[2023-02-07] MEDS: iohexol 350 mg/mL 500 mL Btl (per mL) IV (15:12)
== END 2023-02-07 13:32 | disposition home or self-care (01) ==
PROVIDERS: PCP Family Medicine; Visit Provider Nurse Practitioner Family
DX: C18.9 Malignant neoplasm of colon, unspecified (principal); R91.1 Solitary pulmonary nodule
CPT/HCPCS: 71260; 74177; Q9967

== ENCOUNTER → 2023-02-19 12:59 | Outpatient (BNVA) | payer MEDICARE, OTHER, SELFPAY | PROVIDERS: PCP Family Medicine; Visit Provider Nurse Practitioner Family | DX: Z85.820 Personal history of malignant melanoma of skin (principal); S10.81XA Abrasion of other specified part of neck, initial encounter; X58.XXXA Exposure to other specified factors, initial encounter; L29.8 Other pruritus; L57.0 Actinic keratosis | CPT/HCPCS: 17000; 99213 ==

== ENCOUNTER 2023-02-22 10:26 | Day surgery (SDC) | payer MEDICARE, OTHER, SELFPAY ==
--- NOTE | 2023-02-22 10:33 | P.HPUD_ITS ---
Surgery/Procedure H&P Update DATE OF PROCEDURE: February 22, 2023 DATE H&P PERFORMED: 01/30/22 H&P UPDATE INFORMATION: I have reviewed H&P completed within last 30 days, I have examined patient prior to procedure and Changes to prior documentation as noted here CHANGES TO PREVIOUS DOCUMENTATION: An EGD will also be performed. The risks were explained and are the same as the risk for the colonoscopy. PLANNED PROCEDURE: Operation Date: 02/22/23 11:15 Proposed Procedures p 12950 egd 30064 colon G0121 screen colon A risk Z12.11,(Not Applicable) - Moises Valdovinos DO s Colonoscopy(Not Applicable) - Ketan Valdovinos, DO
[2023-02-22 10:46] VITALS: PULSE 82; RESP 18; TEMP 36.6; O2SAT 97; BMI 38.7
--- NOTE | 2023-02-22 10:46 | ANES.PREANE2 ---
Pre-Anesthetic Assessment Height/Weight: Height 1.68 m Operation Date: 02/22/23 11:15 Proposed Procedures p 77103 egd 35370 colon G0121 screen colon A risk Z12.11,(Not Applicable) - DO minh Sol Colonoscopy(Not Applicable) - Ketan Valdovinos DO Familial anesthetic complications: N/V Was Beta Gladis taken within 24 hours: N/A Was Clonidine taken within 24 hours: N/A Last Intake: 23:00 (Solid food Sunday 5pm, drink last night 2300) Social No alcohol and No tobacco Exam alert, oriented x 3, clear to auscultation bilaterally and regular rate & rhythm Airway Submandibular: within normal limits Cervical ROM: within normal limits Mallampati: Class III Dentition: full History/ROS No significant history except as noted and No significant complaints Pulmonary Asthma (Worse with allergies) and Exertional Dyspnea CV/HEM Anemia, Coronary Artery Disease, Hypertension and Murmur CONCLUSIONS ?1. Normal left ventricular size, systolic function and wall ?thickness, with no regional wall motion abnormalities. Left ?ventricular ejection fraction is estimated at 65-70 %. Normal ?diastolic function. ?2. Normal right ventricular size and systolic function. ?3. No significant valvular abnormality. ?4.? No prior similar studies to compare. None reported Hepatic None reported GI Gastroesophageal Reflux Disease and Peptic Ulcer Disease Lap colectomy 2021 Mass of hepatic flexure of colon Metabolic Morbid Obesity Musc/[facility] Osteoarthritis/DJD Neuropsych Neuropathy Anesthetic Plan ASA status: 3 Anesthesia: Anesthesia Evaluation, General and MAC Risk of > 500 ml blood loss (7ml/kg in children): No Medications/Allergies Home Medications Medication Instructions Recorded Confirmed Last Taken Type amlodipine 5 mg tablet 5 mg PO DAILY 30 days #90 tabs 03/13/22 02/22/23 02/22/23 Rx 0830 pantoprazole 40 mg tablet,delayed 40 mg PO BID 30 days #180 tabs 06/07/22 02/20/23 02/20/23 Rx release (Protonix) furosemide 20 mg tablet 20 mg PO DAILY PRN edema #30 tabs 06/21/22 02/22/23 2 Weeks Ago Rx ~02/08/23 Allergies Allergy/AdvReac Type Severity Reaction Status Date / Time adhesive tape Allergy ALGY-Rash Verified 02/22/23 10:41 codeine Allergy Vomit Verified 02/22/23 10:41 penicillin G Allergy Rash Verified 02/22/23 10:41 [facility] Anesthesia Medical History Breast cancer Colon cancer COVID-19 (10/2021) Degenerative arthritis Demand ischemia of myocardium in setting of severe anemia (Hgb 6) in 02/2022 Gastritis History of malignant melanoma Hypertension White coat hypertension, no medical treatment prior to 02/2022 Iron deficiency anemia Transfusion 2 units PRBCs 02/2022 Mild persistent asthma Surgical History H/O mastectomy (1994) right modified radical mastectomy with breast reconstruction History of appendectomy History of breast reconstruction Redo of right breast reconstruction History of colonoscopy 02/10/2022 mass at distal ascending colon/hepatic flexure History of esophagogastroduodenoscopy (EGD) 02/10/2022 chronic gastritis without bleeding History of hysterectomy History of melanoma excision Wide excision of melanoma on the back History of parotidectomy Right History of tonsillectomy S/P laparoscopic cholecystectomy (02/14/22) Dr. Pineda S/P laparoscopic colectomy (02/14/22) Dr Pineda, right hemicolectomy with primary ileocolic anastomosis Family History Grandmother Cancer Paternal--breast Mother Hypertension Stroke Father Lung disease Denies family history of Diabetes CAD (coronary artery disease) Clotting disorder Dementia Hyperlipidemia Chronic kidney disease (CKD) Anesthesia complication Bleeding disorder Social History Smoking and tobacco/nicotine status: former use of tobacco/nicotine (Quit in 70's) Quit status (tobacco/nicotine): has quit using Year quit tobacco: in the &0s Former quit date comment: 10 years Alcohol intake: current Alcohol intake frequency: holidays/special occasions only Substance/Drug Use: never Caregiver/support person: No Lives independently: Yes Household members: spouse Marital status: Data Anesthesia Cardiac Studies: Echocardiogram 02/08/22
[2023-02-22 10:51] VITALS: BP 176/70
[2023-02-22] MEDS: sodium chloride 0.9% 1,000 ML 30 ML IV (11:15)
[2023-02-22 12:11] VITALS: BP 140/49; PULSE 72; RESP 16; TEMP 36.1; O2SAT 99
[2023-02-22 12:41] VITALS: BP 174/69; PULSE 63; RESP 18; O2SAT 100
--- NOTE | 2023-02-22 12:58 | ANE.PACU2 ---
Inpatient post-anesthesia follow up: Airway intact: Yes Vital signs: Temperature 97.0 F Pulse Rate 63 Respiratory Rate 18 Blood Pressure 174/69 Pulse Oximetry 100 Oxygen Delivery Me thod Room Air Oxygen Flow Rate Fraction of Inspir ed Oxygen Hydration adequate: Yes Nausea and vomiting: No Pain level: 1 Mental status: Baseline
== END 2023-02-22 13:03 | disposition home or self-care (01) ==
PROVIDERS: PCP Family Medicine; Visit Provider Surgery
PROC: 0DJD8ZZ Inspection of Lower Intestinal Tract, Via Natural or Artificial Opening Endoscopic (ICD-10-PCS; CPT 45378; 2023-02-22 11:15)
PROC: 0DJ08ZZ Inspection of Upper Intestinal Tract, Via Natural or Artificial Opening Endoscopic (ICD-10-PCS; CPT 43235; 2023-02-22 11:15)
DX: Z12.11 Encounter for screening for malignant neoplasm of colon (principal); K21.9 Gastro-esophageal reflux disease without esophagitis; K29.50 Unspecified chronic gastritis without bleeding; D12.3 Benign neoplasm of transverse colon; K44.9 Diaphragmatic hernia without obstruction or gangrene; I25.10 Atherosclerotic heart disease of native coronary artery without angina pectoris; I10 Essential (primary) hypertension; Z87.11 Personal history of peptic ulcer disease; Z90.49 Acquired absence of other specified parts of digestive tract; E66.01 Morbid (severe) obesity due to excess calories; Z68.38 Body mass index [BMI] 38.0-38.9, adult; Z85.3 Personal history of malignant neoplasm of breast; Z85.038 Personal history of other malignant neoplasm of large intestine; Z86.16 Personal history of COVID-19; Z87.891 Personal history of nicotine dependence
CPT/HCPCS: 43239; 45385; 88305; 88342; J2704; J7030

== ENCOUNTER → 2023-03-08 09:36 | Outpatient (BNVA) | payer MEDICARE, OTHER, SELFPAY | PROVIDERS: PCP Family Medicine; Visit Provider Surgery | DX: Z09 Encounter for follow-up examination after completed treatment for conditions other than malignant neoplasm (principal) | CPT/HCPCS: 99213 ==

== ENCOUNTER 2023-03-23 10:02 | Oncology outpatient (recurring) (ONCR) | payer MEDICARE, OTHER, SELFPAY | END 2023-04-05 23:59 | disposition home or self-care (01) | PROVIDERS: PCP Family Medicine; Visit Provider Internal Medicine Medical Oncology | DX: Z45.2 Encounter for adjustment and management of vascular access device (principal) | CPT/HCPCS: 96523 ==

== ENCOUNTER 2023-04-23 12:09 | Oncology outpatient (recurring) (ONCR) | payer MEDICARE, OTHER, SELFPAY ==
[2023-04-23 12:13] VITALS: BP 174/66; PULSE 75; RESP 16; TEMP 36.4; O2SAT 97
[2023-04-23 12:41] LABS: Basophils # 0.1 10^3/uL (0.0-0.1); Eosinophils # 0.2 10^3/uL (0.0-0.8); Eosinophils % 2.5 %; Hematocrit 41.2 % (36-47); Lymphocytes # 2.1 10^3/uL (0.8-4.8); Lymphocytes % 25.1 %; Mean Corpuscular HGB Conc 31.6 g/dL (30-55); Mean Corpuscular Hemoglobin 26.2 pg (27-33); Mean Corpuscular Volume 82.9 fl (85-98); Mean Platelet Volume 11.2 fL (7.4-10.4); Monocytes # 0.7 10^3/uL (0.2-0.9); Monocytes % 8.8 %; Neutrophils % 62.4 %; Nucleated Red Blood Cells % 0 %; Platelet Count 201 10^3/cmm (157-399); Red Blood Count 4.97 10^6/uL (3.85-5.65); Red Cell Distribution Width 16.1 % (12.1-15.1); White Blood Count 8.33 10^3/uL (3.29-11.43)
[2023-04-23 13:16] LABS: Carcinoembryonic Antigen 2.1 ng/mL (0.0-4.7)
[2023-04-23 13:27] LABS: Alanine Aminotransferase 10 U/L (0-33); Albumin Level 4.1 g/dL (3.5-5.2); Alkaline Phosphatase 97 U/L (35-105); Anion Gap 13.2 (5-19); Aspartate Amino Transferase 14 U/L (0-32); Blood Urea Nitrogen 16 mg/dL (8-23); Calcium 9.2 mg/dL (8.5-10.5); Carbon Dioxide 25 mmol/L (22-29); Chloride 104 mmol/L (98-107); Globulin 2.6 g/dL (1.3-4.6); Glucose 97 mg/dL (65-115); Osmolality Calculated 287 mOsm/kg (285-295); Potassium 4.2 mmol/L (3.5-5.1); Sodium 138 mmol/L (136-145); Total Bilirubin 0.4 mg/dL (0.15-1.2); Total Protein 6.7 g/dL (6.6-8.7)
[2023-04-23 14:51] LABS: Iron 50 ug/dL (37-145); Percent Saturation 13.6 % (20-50); Total Iron Binding Capacity 367 mcg/dl; Unsaturated Iron Binding 317 ug/dL (112-347)
== END 2023-05-06 23:59 | disposition home or self-care (01) ==
PROVIDERS: Nurse Practitioner Family; PCP Family Medicine; Visit Provider Internal Medicine Medical Oncology
DX: Z45.2 Encounter for adjustment and management of vascular access device (principal); Z95.828 Presence of other vascular implants and grafts; Z51.11 Encounter for antineoplastic chemotherapy; C18.3 Malignant neoplasm of hepatic flexure; G56.92 Unspecified mononeuropathy of left upper limb; Z79.52 Long term (current) use of systemic steroids; Z79.899 Other long term (current) drug therapy; C77.8 Secondary and unspecified malignant neoplasm of lymph nodes of multiple regions; Z53.9 Procedure and treatment not carried out, unspecified reason
CPT/HCPCS: 36591; 80053; 82378; 83540; 83550; 85025; 99213; J1642

== ENCOUNTER 2023-06-04 10:29 | Oncology outpatient (recurring) (ONCR) | payer MEDICARE, OTHER, SELFPAY ==
[2023-06-04 10:36] VITALS: BP 209/60; PULSE 70; RESP 18; TEMP 36.4; O2SAT 97
--- NOTE | 2023-06-04 10:42 | PC.NURSE ---
patient states she takes BP meds at home and monitors. Blood pressure is higher in clinics.
== END 2023-06-06 23:59 | disposition home or self-care (01) ==
PROVIDERS: PCP Family Medicine; Visit Provider Internal Medicine Medical Oncology
DX: Z45.2 Encounter for adjustment and management of vascular access device (principal); Z95.828 Presence of other vascular implants and grafts; Z51.11 Encounter for antineoplastic chemotherapy; C18.3 Malignant neoplasm of hepatic flexure; G56.92 Unspecified mononeuropathy of left upper limb; Z79.52 Long term (current) use of systemic steroids; Z79.899 Other long term (current) drug therapy; C77.8 Secondary and unspecified malignant neoplasm of lymph nodes of multiple regions
CPT/HCPCS: 96523; J1642

== ENCOUNTER 2023-06-13 10:22 | Outpatient (RCR) | payer MEDICARE, OTHER, SELFPAY | END 2023-07-05 23:59 | disposition home or self-care (01) | LOC: SPT 10:22 | PROVIDERS: PCP Family Medicine; Visit Provider Family Medicine | DX: R29.898 Other symptoms and signs involving the musculoskeletal system (principal); M79.605 Pain in left leg | CPT/HCPCS: 97110; 97161 ==

== ENCOUNTER 2023-06-25 13:56 | Oncology outpatient (recurring) (ONCR) | payer MEDICARE, OTHER, SELFPAY | END 2023-07-05 23:59 | disposition home or self-care (01) | PROVIDERS: PCP Family Medicine; Visit Provider Internal Medicine Medical Oncology | DX: Z45.2 Encounter for adjustment and management of vascular access device (principal) | CPT/HCPCS: 96523; J1642 ==

== ENCOUNTER 2023-07-06 06:00 | Outpatient (RCR) | payer MEDICARE, OTHER, SELFPAY | END 2023-08-05 23:59 | disposition home or self-care (01) | LOC: SPT 06:00 | PROVIDERS: PCP Family Medicine; Visit Provider Family Medicine | DX: M62.81 Muscle weakness (generalized) (principal); M25.562 Pain in left knee | CPT/HCPCS: 97110 ==

== ENCOUNTER 2023-07-23 13:49 | Oncology outpatient (recurring) (ONCR) | payer MEDICARE, OTHER, SELFPAY | END 2023-08-05 23:59 | disposition home or self-care (01) | LOC: ONCMED 13:49 | PROVIDERS: PCP Family Medicine; Visit Provider Internal Medicine Medical Oncology | DX: Z45.2 Encounter for adjustment and management of vascular access device (principal) ==

== ENCOUNTER 2023-08-20 13:28 | Oncology outpatient (recurring) (ONCR) | payer MEDICARE, OTHER, SELFPAY | END 2023-09-04 23:59 | disposition home or self-care (01) | LOC: ONCMED 13:28 | PROVIDERS: PCP Family Medicine; Visit Provider Internal Medicine Medical Oncology | DX: Z45.2 Encounter for adjustment and management of vascular access device (principal) | CPT/HCPCS: 96523; J1642 ==

== ENCOUNTER 2023-09-13 13:54 | Oncology outpatient (recurring) (ONCR) | payer MEDICARE, OTHER, SELFPAY | END 2023-10-05 23:59 | disposition home or self-care (01) | LOC: ONCMED 13:55 | PROVIDERS: PCP Family Medicine; Visit Provider Internal Medicine Medical Oncology | DX: Z45.2 Encounter for adjustment and management of vascular access device (principal) | CPT/HCPCS: 96523 ==

== ENCOUNTER 2023-10-15 11:32 | Oncology outpatient (recurring) (ONCR) | payer MEDICARE, OTHER, SELFPAY ==
[2023-10-15 11:46] LABS: Basophils # 0.1 10^3/uL (0.0-0.1); Basophils % 0.9 %; Eosinophils # 0.2 10^3/uL (0.0-0.8); Eosinophils % 1.6 %; Hematocrit 43.2 % (36-47); Lymphocytes # 2.6 10^3/uL (0.8-4.8); Lymphocytes % 26.5 %; Mean Corpuscular HGB Conc 31.7 g/dL (30-55); Mean Platelet Volume 11.1 fL (7.4-10.4); Monocytes # 0.8 10^3/uL (0.2-0.9); Monocytes % 8.4 %; Neutrophils # 6.11 10^3/uL (1.8-7.7); Neutrophils % 62.2 %; Nucleated Red Blood Cells % 0 %; Platelet Count 217 10^3/cmm (157-399); Red Blood Count 5.08 10^6/uL (3.85-5.65); White Blood Count 9.84 10^3/uL (3.29-11.43)
[2023-10-15 12:15] LABS: Carcinoembryonic Antigen 2.2 ng/mL (0.0-4.7)
[2023-10-15 12:26] LABS: Alanine Aminotransferase 12 U/L (0-33); Albumin Level 3.9 g/dL (3.5-5.2); Alkaline Phosphatase 96 U/L (35-105); Anion Gap 15.1 (5-19); Aspartate Amino Transferase 15 U/L (0-32); Blood Urea Nitrogen 13 mg/dL (8-23); Calcium 8.9 mg/dL (8.5-10.5); Carbon Dioxide 25 mmol/L (22-29); Chloride 106 mmol/L (98-107); Globulin 2.9 g/dL (1.3-4.6); Glucose 116 mg/dL (65-115); Osmolality Calculated 295 mOsm/kg (285-295); Potassium 4.1 mmol/L (3.5-5.1); Sodium 142 mmol/L (136-145); Total Bilirubin 0.4 mg/dL (0.15-1.2); Total Protein 6.8 g/dL (6.6-8.7)
== END 2023-11-04 23:59 | disposition home or self-care (01) ==
PROVIDERS: PCP Family Medicine; Visit Provider Internal Medicine Medical Oncology
DX: C18.9 Malignant neoplasm of colon, unspecified; Z53.9 Procedure and treatment not carried out, unspecified reason
CPT/HCPCS: 36591; 80053; 82378; 85025; 99214

== ENCOUNTER 2023-11-15 14:12 | Oncology outpatient (recurring) (ONCR) | payer MEDICARE, OTHER, SELFPAY | END 2023-12-05 23:59 | disposition home or self-care (01) | LOC: ONCMED 14:12 | PROVIDERS: PCP Family Medicine; Visit Provider Internal Medicine Medical Oncology | DX: Z45.2 Encounter for adjustment and management of vascular access device | CPT/HCPCS: 96523 ==

== ENCOUNTER 2023-12-13 14:37 | Oncology outpatient (recurring) (ONCR) | payer MEDICARE, OTHER, SELFPAY | END 2024-01-05 23:59 | disposition home or self-care (01) | LOC: ONCMED 14:37 | PROVIDERS: PCP Family Medicine; Visit Provider Internal Medicine Medical Oncology | DX: Z45.2 Encounter for adjustment and management of vascular access device (principal) | CPT/HCPCS: 96523 ==

== ENCOUNTER 2024-01-10 14:30 | Oncology outpatient (recurring) (ONCR) | payer MEDICARE, OTHER, SELFPAY ==
[2024-01-10 14:57] LABS: Basophils # 0.1 10^3/uL (0.0-0.1); Basophils % 0.7 %; Eosinophils # 0.2 10^3/uL (0.0-0.8); Eosinophils % 1.9 %; Hematocrit 43.9 % (36-47); Lymphocytes # 2.5 10^3/uL (0.8-4.8); Lymphocytes % 27.6 %; Mean Corpuscular HGB Conc 32.3 g/dL (30-55); Mean Corpuscular Hemoglobin 28.1 pg (27-33); Mean Corpuscular Volume 86.9 fl (85-98); Mean Platelet Volume 11.1 fL (7.4-10.4); Monocytes # 0.9 10^3/uL (0.2-0.9); Monocytes % 10.2 %; Neutrophils % 59.4 %; Nucleated Red Blood Cells % 0 %; Platelet Count 192 10^3/cmm (157-399); Red Blood Count 5.05 10^6/uL (3.85-5.65); Red Cell Distribution Width 15.9 % (12.1-15.1); White Blood Count 8.92 10^3/uL (3.29-11.43)
[2024-01-10 15:12] LABS: Alanine Aminotransferase 11 U/L (0-33); Alkaline Phosphatase 89 U/L (35-105); Anion Gap 16.1 (5-19); Aspartate Amino Transferase 15 U/L (0-32); Blood Urea Nitrogen 17 mg/dL (8-23); Calcium 9.1 mg/dL (8.5-10.5); Carbon Dioxide 26 mmol/L (22-29); Chloride 103 mmol/L (98-107); Globulin 2.8 g/dL (1.3-4.6); Glucose 112 mg/dL (65-115); Osmolality Calculated 294 mOsm/kg (285-295); Potassium 4.1 mmol/L (3.5-5.1); Sodium 141 mmol/L (136-145); Total Bilirubin 0.3 mg/dL (0.15-1.2); Total Protein 6.8 g/dL (6.6-8.7)
[2024-01-11 13:40] LABS: Carcinoembryonic Antigen 2.3 ng/mL (0.0-4.7)
[2024-01-11 13:41] LABS: Thyroid Stimulating Hormone 2.55 uIU/mL (0.27-4.20)
--- NOTE | 2024-02-05 11:00 | CTR_ITS ---
PROCEDURE INFORMATION: Exam: CT Chest With Contrast; Diagnostic Exam date and time: 02/05/2024 11:12 AM Age: 78 years old Clinical indication: Condition or disease; Other: Breast, colon, melanoma; Other: Breast, colon cancer, melanoma; Prior surgery; Surgery date: 6+ months; Surgery type: Colon, RT mastectomy, left lumpectomy, appy, hyst, gb; Additional info: Surveillance TECHNIQUE: Imaging protocol: Diagnostic computed tomography of the chest with contrast. Radiation optimization: All CT scans at this facility use at least one of these dose optimization techniques: automated exposure control; mA and/or kV adjustment per patient size (includes targeted exams where dose is matched to clinical indication); or iterative reconstruction. Contrast material: OMNI 350; Contrast volume: 100 ml; Contrast route: INTRAVENOUS (IV); COMPARISON: CT chest abdpel w/*[id number] 02/07/2023 3:03 PM RADIATION DOSE METRICS: Total DLP (mGy-cm): 1293.34 FINDINGS: Tubes, catheters and devices: Right chest port in position, tip terminates in the SVC. Lungs: Stable 5.8 mm nodule in the peripheral aspect of the right middle lobe. Stable 2.4 mm subpleural nodule in the right middle lobe. Pleural spaces: No pleural effusion or pneumothorax noted. Heart: There is no cardiomegaly. There is no pericardial effusion. Lymph nodes: No pathologically enlarged lymph nodes (by short axis size criteria). Vasculature: There is no aortic dissection. There is no aortic aneurysm. There is atherosclerotic disease. Enlarged pulmonary artery indicating pulmonary arterial hypertension. Bones/joints: No acute osseous abnormality. There is degenerative disease of the spine. Soft tissues: Surgical clips right axilla. Post right mastectomy in pectoral muscle resection. PROCEDURE INFORMATION: Exam: CT Abdomen And Pelvis With Contrast Exam date and time: 02/05/2024 11:12 AM Age: 78 years old Clinical indication: Condition or disease; Other: Breast, colon, melanoma; Other: Breast, colon cancer, melanoma; Prior surgery; Surgery date: 6+ months; Surgery type: Colon, RT mastectomy, left lumpectomy, appy, hyst, gb; Additional info: Surveillance TECHNIQUE: Imaging protocol: Computed tomography of the abdomen and pelvis with contrast. Radiation optimization: All CT scans at this facility use at least one of these dose optimization techniques: automated exposure control; mA and/or kV adjustment per patient size (includes targeted exams where dose is matched to clinical indication); or iterative reconstruction. Contrast material: OMNI 350; Contrast volume: 100 ml; Contrast route: INTRAVENOUS (IV); COMPARISON: CT chest abdpel w/*[id number] 02/07/2023 3:03 PM RADIATION DOSE METRICS: Total DLP (mGy-cm): 1293.34 FINDINGS: Liver: Hepatic steatosis. Portal vein is patent. Gallbladder and biliary ducts: Post cholecystectomy. Pancreas: The pancreas is atrophic. Spleen: The spleen is unremarkable. Adrenal glands: Stable 12 mm left adrenal nodule. Kidneys and ureters: No hydronephrosis or nephrolithiasis. Bilateral simple renal cysts are present, as well as other subcentimeter hypodensities which are too small to characterize. Stomach and bowel: Stomach is distended with contrast. Small and large bowel are normal in caliber without evidence of obstruction. Post right colectomy. Constipation with possible fecal impaction. Appendix: Post appendectomy. Intraperitoneal space: No free intraperitoneal air. No fluid collection. Vasculature: There is no aortic aneurysm. There is atherosclerotic disease. Lymph nodes: No pathologically enlarged lymph nodes (by short axis size criteria). Urinary bladder: Bladder is not fully distended, the campbell are prominent and may be due to underdistention however, underlying UTI cannot be excluded. Recommend urinalysis. Reproductive: There has been a hysterectomy. No adnexal cysts or masses are identified. Bones/joints: No acute osseous abnormality. There is degenerative disease of the spine. Soft tissues: Unremarkable.
== END 2024-02-04 23:59 | disposition home or self-care (01) ==
PROVIDERS: PCP Family Medicine; Visit Provider Nurse Practitioner Family
DX: C18.9 Malignant neoplasm of colon, unspecified (principal); D50.0 Iron deficiency anemia secondary to blood loss (chronic)
CPT/HCPCS: 36591; 80053; 82378; 84443; 85025

== ENCOUNTER 2024-03-06 14:30 | Oncology outpatient (recurring) (ONCR) | payer MEDICARE, OTHER, SELFPAY ==
--- NOTE | 2024-02-05 08:20 | CTR_ITS ---
PROCEDURE INFORMATION: Exam: CT Chest With Contrast; Diagnostic Exam date and time: 02/05/2024 11:12 AM Age: 78 years old Clinical indication: Condition or disease; Other: Breast, colon, melanoma; Other: Breast, colon cancer, melanoma; Prior surgery; Surgery date: 6+ months; Surgery type: Colon, RT mastectomy, left lumpectomy, appy, hyst, gb; Additional info: Surveillance TECHNIQUE: Imaging protocol: Diagnostic computed tomography of the chest with contrast. Radiation optimization: All CT scans at this facility use at least one of these dose optimization techniques: automated exposure control; mA and/or kV adjustment per patient size (includes targeted exams where dose is matched to clinical indication); or iterative reconstruction. Contrast material: OMNI 350; Contrast volume: 100 ml; Contrast route: INTRAVENOUS (IV); COMPARISON: CT chest abdpel w/*[id number] 02/07/2023 3:03 PM RADIATION DOSE METRICS: Total DLP (mGy-cm): 1293.34 FINDINGS: Tubes, catheters and devices: Right chest port in position, tip terminates in the SVC. Lungs: Stable 5.8 mm nodule in the peripheral aspect of the right middle lobe. Stable 2.4 mm subpleural nodule in the right middle lobe. Pleural spaces: No pleural effusion or pneumothorax noted. Heart: There is no cardiomegaly. There is no pericardial effusion. Lymph nodes: No pathologically enlarged lymph nodes (by short axis size criteria). Vasculature: There is no aortic dissection. There is no aortic aneurysm. There is atherosclerotic disease. Enlarged pulmonary artery indicating pulmonary arterial hypertension. Bones/joints: No acute osseous abnormality. There is degenerative disease of the spine. Soft tissues: Surgical clips right axilla. Post right mastectomy in pectoral muscle resection. PROCEDURE INFORMATION: Exam: CT Abdomen And Pelvis With Contrast Exam date and time: 02/05/2024 11:12 AM Age: 78 years old Clinical indication: Condition or disease; Other: Breast, colon, melanoma; Other: Breast, colon cancer, melanoma; Prior surgery; Surgery date: 6+ months; Surgery type: Colon, RT mastectomy, left lumpectomy, appy, hyst, gb; Additional info: Surveillance TECHNIQUE: Imaging protocol: Computed tomography of the abdomen and pelvis with contrast. Radiation optimization: All CT scans at this facility use at least one of these dose optimization techniques: automated exposure control; mA and/or kV adjustment per patient size (includes targeted exams where dose is matched to clinical indication); or iterative reconstruction. Contrast material: OMNI 350; Contrast volume: 100 ml; Contrast route: INTRAVENOUS (IV); COMPARISON: CT chest abdpel w/*[id number] 02/07/2023 3:03 PM RADIATION DOSE METRICS: Total DLP (mGy-cm): 1293.34 FINDINGS: Liver: Hepatic steatosis. Portal vein is patent. Gallbladder and biliary ducts: Post cholecystectomy. Pancreas: The pancreas is atrophic. Spleen: The spleen is unremarkable. Adrenal glands: Stable 12 mm left adrenal nodule. Kidneys and ureters: No hydronephrosis or nephrolithiasis. Bilateral simple renal cysts are present, as well as other subcentimeter hypodensities which are too small to characterize. Stomach and bowel: Stomach is distended with contrast. Small and large bowel are normal in caliber without evidence of obstruction. Post right colectomy. Constipation with possible fecal impaction. Appendix: Post appendectomy. Intraperitoneal space: No free intraperitoneal air. No fluid collection. Vasculature: There is no aortic aneurysm. There is atherosclerotic disease. Lymph nodes: No pathologically enlarged lymph nodes (by short axis size criteria). Urinary bladder: Bladder is not fully distended, the campbell are prominent and may be due to underdistention however, underlying UTI cannot be excluded. Recommend urinalysis. Reproductive: There has been a hysterectomy. No adnexal cysts or masses are identified. Bones/joints: No acute osseous abnormality. There is degenerative disease of the spine. Soft tissues: Unremarkable. CT/CT chest [facility] w/*[id number] IMPRESSION: 1. No acute findings. 2. Stable right middle lobe lung nodules. IMPRESSION: 1. No acute findings. 2. Stable left adrenal nodule. COMMENTS: Consistent with the [employer]'s Incidental Findings Committee white paper (J Am Amie Radiol 2018): Any incidental renal lesion less than 1 cm or classified as too small to characterize, or any incidental cystic renal lesion characterized as simple-appearing, is likely benign. No follow-up imaging is recommended for these lesions per consensus recommendations based on imaging criteria.
[2024-02-05] MEDS: iohexol 350 mg/mL 500 mL Btl (per mL) IV (12:12)
[2024-02-05] MEDS: iohexol 350 mg/mL 500 mL Btl (per mL) PO (12:13)
== END 2024-03-06 23:59 | disposition home or self-care (01) ==
PROVIDERS: PCP Family Medicine; Visit Provider Nurse Practitioner Family
DX: Z53.9 Procedure and treatment not carried out, unspecified reason
CPT/HCPCS: 71260; 74177; Q9967

== ENCOUNTER 2024-03-10 13:23 | Oncology outpatient (recurring) (ONCR) | payer MEDICARE, OTHER, SELFPAY | END 2024-04-05 23:59 | disposition home or self-care (01) | LOC: ONCMED 13:23 | PROVIDERS: PCP Family Medicine; Visit Provider Nurse Practitioner Family | DX: Z45.2 Encounter for adjustment and management of vascular access device | CPT/HCPCS: 96523 ==

== ENCOUNTER → 2024-04-11 09:47 | Outpatient (BNVA) | payer MEDICARE, OTHER, SELFPAY | PROVIDERS: PCP Family Medicine; Visit Provider Nurse Practitioner Family | DX: L29.89 Other pruritus (principal); T45.1X5A Adverse effect of antineoplastic and immunosuppressive drugs, initial encounter; Z85.820 Personal history of malignant melanoma of skin; L57.0 Actinic keratosis; L98.0 Pyogenic granuloma; X58.XXXA Exposure to other specified factors, initial encounter | CPT/HCPCS: 17000; 99213 ==

== ENCOUNTER 2024-04-17 11:01 | Oncology outpatient (recurring) (ONCR) | payer MEDICARE, OTHER, SELFPAY ==
[2024-04-17 11:27] LABS: Basophils # 0.1 10^3/uL (0.0-0.1); Eosinophils # 0.2 10^3/uL (0.0-0.8); Eosinophils % 2.4 %; Hematocrit 42.7 % (36-47); Lymphocytes % 24.6 %; Mean Corpuscular HGB Conc 32.6 g/dL (30-55); Mean Corpuscular Hemoglobin 29.5 pg (27-33); Mean Corpuscular Volume 90.7 fl (85-98); Mean Platelet Volume 11.1 fL (7.4-10.4); Monocytes # 0.8 10^3/uL (0.2-0.9); Neutrophils # 5.13 10^3/uL (1.8-7.7); Neutrophils % 61.8 %; Nucleated Red Blood Cells % 0 %; Platelet Count 179 10^3/cmm (157-399); Red Blood Count 4.71 10^6/uL (3.85-5.65); Red Cell Distribution Width 14.3 % (12.1-15.1)
[2024-04-17 11:57] LABS: Carcinoembryonic Antigen 2.3 ng/mL (0.0-4.7)
[2024-04-17 12:08] LABS: Alanine Aminotransferase 9 U/L (0-33); Albumin Level 3.9 g/dL (3.5-5.2); Alkaline Phosphatase 90 U/L (35-105); Aspartate Amino Transferase 13 U/L (0-32); Blood Urea Nitrogen 11 mg/dL (8-23); Calcium 9.2 mg/dL (8.5-10.5); Carbon Dioxide 24 mmol/L (22-29); Chloride 105 mmol/L (98-107); Creatinine Clr Calc Pharmacy 66.1206; Globulin 2.4 g/dL (1.3-4.6); Glucose 113 mg/dL (65-115); Osmolality Calculated 292 mOsm/kg (285-295); Sodium 141 mmol/L (136-145); Total Bilirubin 0.4 mg/dL (0.15-1.2); Total Protein 6.3 g/dL (6.6-8.7)
== END 2024-05-06 23:59 | disposition home or self-care (01) ==
PROVIDERS: PCP Family Medicine; Visit Provider Nurse Practitioner Family
DX: C18.3 Malignant neoplasm of hepatic flexure (principal)
CPT/HCPCS: 36591; 80053; 82378; 85025; 99213

== ENCOUNTER 2024-05-22 12:51 | Oncology outpatient (recurring) (ONCR) | payer MEDICARE, OTHER, SELFPAY | END 2024-06-06 23:59 | disposition home or self-care (01) | LOC: ONCMED 12:53 | PROVIDERS: PCP Family Medicine; Visit Provider Internal Medicine | DX: Z45.2 Encounter for adjustment and management of vascular access device (principal); Z95.828 Presence of other vascular implants and grafts | CPT/HCPCS: 96523 ==

== ENCOUNTER 2024-06-30 13:35 | Oncology outpatient (recurring) (ONCR) | payer MEDICARE, OTHER, SELFPAY | END 2024-07-04 23:59 | disposition home or self-care (01) | LOC: ONCMED 13:35 | PROVIDERS: PCP Family Medicine; Visit Provider Internal Medicine | DX: Z45.2 Encounter for adjustment and management of vascular access device (principal) | CPT/HCPCS: 96523 ==

== ENCOUNTER → 2024-07-06 15:37 | Outpatient (BNVA) | payer MEDICARE, OTHER, SELFPAY | PROVIDERS: PCP Family Medicine; Visit Provider Nurse Practitioner | DX: R53.83 Other fatigue (principal) | CPT/HCPCS: 87400 ==

== ENCOUNTER 2024-08-19 12:53 | Oncology outpatient (recurring) (ONCR) | payer MEDICARE, OTHER, SELFPAY ==
[2024-08-14 11:31] LABS: Basophils # 0.1 10^3/uL (0.0-0.1); Basophils % 0.8 %; Eosinophils # 0.2 10^3/uL (0.0-0.8); Hematocrit 45.6 % (36-47); Lymphocytes % 25.9 %; Mean Corpuscular HGB Conc 32.2 g/dL (30-55); Mean Corpuscular Hemoglobin 29.7 pg (27-33); Mean Corpuscular Volume 92.1 fl (85-98); Mean Platelet Volume 10.8 fL (7.4-10.4); Monocytes # 0.8 10^3/uL (0.2-0.9); Monocytes % 10.1 %; Neutrophils # 4.77 10^3/uL (1.8-7.7); Neutrophils % 60.7 %; Nucleated Red Blood Cells % 0 %; Platelet Count 186 10^3/cmm (157-399); Red Blood Count 4.95 10^6/uL (3.85-5.65); Red Cell Distribution Width 13.5 % (12.1-15.1); White Blood Count 7.85 10^3/uL (3.29-11.43)
--- NOTE | 2024-08-14 12:00 | CT_ITS ---
WS: [id number] CT CHEST, ABDOMEN, AND PELVIS TECHNIQUE: Contrast-enhanced CT of the chest, abdomen, and pelvis with coronal and sagittal reformatted images. CLINICAL INFORMATION: Surveillance COMPARISON: 02/05/2024 DLP: 1330.[address] scans at [facility] use at least one of these dose optimization techniques: automated exposure control; mA and/or kV adjustment per patient size (includes targeted exams where dose is matched to clinical indication); or iterative reconstruction. CT CHEST: 5 mm stable RIGHT middle lobe nodule. Additional tiny subpleural nodules RIGHT middle lobe. Few hazy opacities in the RIGHT lung apex likely infectious or inflammatory. Normal caliber thoracic aorta. Aortic calcification. Proximal main pulmonary arteries are normal. Multinodular thyroid worse than the RIGHT. No mediastinal or hilar lymphadenopathy. No axillary lymphadenopathy. Thoracic kyphosis. CT ABDOMEN AND PELVIS: Fatty liver. Normal spleen. Tiny esophageal hernia. Normal pancreas. Normal caliber abdominal aorta. Aortic calcification. Stable LEFT adrenal nodule. Normal renal parenchymal enhancement. No hydronephrosis. Renal atrophy. No lymphadenopathy in the abdomen or pelvis. Prior hysterectomy and cholecystectomy. Prior partial colectomy. CT/CT chest abdpel w/*[id number] IMPRESSION: 1. No evidence of new or progressed metastatic disease. 2. No lymphadenopathy in the chest abdomen or pelvis. 3. Stable 5 mm nodule RIGHT middle lobe. 4. Prior cholecystectomy.
[2024-08-14 12:18] LABS: Alanine Aminotransferase 9 U/L (0-33); Albumin Level 4.1 g/dL (3.5-5.2); Alkaline Phosphatase 85 U/L (35-105); Anion Gap 16.1 (5-19); Aspartate Amino Transferase 12 U/L (0-32); Blood Urea Nitrogen 11 mg/dL (8-23); Calcium 9.3 mg/dL (8.5-10.5); Carbon Dioxide 23 mmol/L (22-29); Chloride 106 mmol/L (98-107); Globulin 2.9 g/dL (1.3-4.6); Glucose 86 mg/dL (65-115); Osmolality Calculated 291 mOsm/kg (285-295); Potassium 4.1 mmol/L (3.5-5.1); Sodium 141 mmol/L (136-145); Total Bilirubin 0.4 mg/dL (0.15-1.2)
[2024-08-14] MEDS: iohexol 350 mg/mL 500 mL Btl (per mL) PO (12:32)
[2024-08-14] MEDS: iohexol 350 mg/mL 500 mL Btl (per mL) IV (12:32)
== END 2024-09-03 23:59 | disposition home or self-care (01) ==
PROVIDERS: Nurse Practitioner Family; PCP Family Medicine; Visit Provider Internal Medicine
DX: Z08 Encounter for follow-up examination after completed treatment for malignant neoplasm (principal); Z85.038 Personal history of other malignant neoplasm of large intestine; R91.1 Solitary pulmonary nodule; D35.02 Benign neoplasm of left adrenal gland; R06.09 Other forms of dyspnea; Z92.21 Personal history of antineoplastic chemotherapy; Z90.49 Acquired absence of other specified parts of digestive tract; Z87.891 Personal history of nicotine dependence; Z95.828 Presence of other vascular implants and grafts
CPT/HCPCS: 71260; 74177; 80053; 82378; 85025; 99213

== ENCOUNTER 2024-09-16 13:12 | Oncology outpatient (recurring) (ONCR) | payer MEDICARE, OTHER, SELFPAY | END 2024-10-04 23:59 | disposition home or self-care (01) | LOC: ONCMED 13:12 | PROVIDERS: PCP Family Medicine; Visit Provider Internal Medicine | DX: Z45.2 Encounter for adjustment and management of vascular access device (principal) | CPT/HCPCS: 96523 ==

== ENCOUNTER 2024-10-17 10:49 | Oncology outpatient (recurring) (ONCR) | payer MEDICARE, OTHER, SELFPAY | END 2024-11-03 23:59 | disposition home or self-care (01) | PROVIDERS: PCP Family Medicine; Visit Provider Internal Medicine | DX: Z45.2 Encounter for adjustment and management of vascular access device (principal); Z95.828 Presence of other vascular implants and grafts | CPT/HCPCS: 96523 ==

== ENCOUNTER 2024-11-19 13:15 | Oncology outpatient (recurring) (ONCR) | payer MEDICARE, OTHER, SELFPAY | END 2024-12-04 23:59 | disposition home or self-care (01) | LOC: ONCMED 13:15 | PROVIDERS: PCP Family Medicine; Visit Provider Internal Medicine | DX: Z45.2 Encounter for adjustment and management of vascular access device (principal); Z95.828 Presence of other vascular implants and grafts | CPT/HCPCS: 96523 ==

== ENCOUNTER 2024-12-26 09:19 | Oncology outpatient (recurring) (ONCR) | payer MEDICARE, OTHER, SELFPAY | END 2025-01-04 23:59 | disposition home or self-care (01) | PROVIDERS: PCP Family Medicine; Visit Provider Internal Medicine | DX: Z45.2 Encounter for adjustment and management of vascular access device (principal); Z95.828 Presence of other vascular implants and grafts | CPT/HCPCS: 96523 ==

== ENCOUNTER 2025-01-21 09:47 | Oncology outpatient (recurring) (ONCR) | payer MEDICARE, OTHER, SELFPAY | END 2025-02-03 23:59 | disposition home or self-care (01) | LOC: ONCMED 09:47 | PROVIDERS: PCP Family Medicine; Visit Provider Internal Medicine | DX: Z45.2 Encounter for adjustment and management of vascular access device (principal); Z95.828 Presence of other vascular implants and grafts | CPT/HCPCS: 96523 ==

== ENCOUNTER 2025-02-18 14:17 | Oncology outpatient (recurring) (ONCR) | payer MEDICARE, OTHER, SELFPAY ==
[2025-02-11 11:28] LABS: Hematocrit 40.9 % (36-47); Hemoglobin 13.50 g/dL (11.27-16.99); Mean Corpuscular HGB Conc 33.0 g/dL (30-55); Mean Corpuscular Hemoglobin 30.5 pg (27-33); Mean Corpuscular Volume 92.5 fl (85-98); Nucleated Red Blood Cells % 0 %; Platelet Count 181 10^3/cmm (157-399); Red Blood Count 4.42 10^6/uL (3.85-5.65); White Blood Count 6.32 10^3/uL (3.29-11.43)
[2025-02-11 11:57] LABS: Carcinoembryonic Antigen 2.6 ng/mL (0.0-4.7)
--- NOTE | 2025-02-11 12:00 | CTR_ITS ---
PROCEDURE INFORMATION: Exam: CT Chest With Contrast; Diagnostic Exam date and time: 02/11/2025 12:21 PM Age: 79 years old Clinical indication: Condition or disease; Other: Adenocarcinoma of colon, breast cancer, melanoma; Prior surgery; Surgery date: 6+ months; Surgery type: Colon, RT breast, left lumpectomy, appy, hyst, gb, port TECHNIQUE: Imaging protocol: Diagnostic computed tomography of the chest with contrast. Radiation optimization: All CT scans at this facility use at least one of these dose optimization techniques: automated exposure control; mA and/or kV adjustment per patient size (includes targeted exams where dose is matched to clinical indication); or iterative reconstruction. Contrast material: OMNI 350; Contrast volume: 100 ml; Contrast route: INTRAVENOUS (IV); COMPARISON: CT chest abdpel w/*[id number] 08/14/2024 12:25 PM RADIATION DOSE METRICS: Total DLP (mGy-cm): 1332.79 FINDINGS: Tubes, catheters and devices: A right-sided VAD is in good position with the catheter tip in the lower SVC. Lungs: There is a 2 cm focus of nodular density involving the posterior aspect of the right lower lobe. A 4 mm rounded nodule lies in the lateral aspect of the right middle lobe. No other lung nodule or infiltrate noted. Pleural spaces: Unremarkable. No pneumothorax. No pleural effusion. Heart: Unremarkable. No cardiomegaly. No pericardial effusion. Lymph nodes: Unremarkable. No enlarged lymph nodes. Vasculature: Unremarkable. No aortic aneurysm. Bones/joints: Unremarkable. No acute fracture. Soft tissues: Unremarkable. PROCEDURE INFORMATION: Exam: CT Abdomen And Pelvis With Contrast Exam date and time: 02/11/2025 12:21 PM Age: 79 years old Clinical indication: Condition or disease; Other: Adenocarcinoma of colon, breast cancer, melanoma; Prior surgery; Surgery date: 6+ months; Surgery type: Colon, RT breast, left lumpectomy, appy, hyst, gb, port TECHNIQUE: Imaging protocol: Computed tomography of the abdomen and pelvis with contrast. Radiation optimization: All CT scans at this facility use at least one of these dose optimization techniques: automated exposure control; mA and/or kV adjustment per patient size (includes targeted exams where dose is matched to clinical indication); or iterative reconstruction. Contrast material: OMNI 350; Contrast volume: 100 ml; Contrast route: INTRAVENOUS (IV); COMPARISON: CT chest [facility] w/*[id number] 08/14/2024 12:25 PM RADIATION DOSE METRICS: Total DLP (mGy-cm): 1332.79 FINDINGS: Lungs: Lung bases are clear. No pleural effusion. Liver: Normal. No mass. Gallbladder and biliary ducts: The gallbladder has been resected. Pancreas: Normal. No ductal dilation. Spleen: Normal. No splenomegaly. Adrenal glands: 1.2 cm left adrenal nodule noted. Kidneys and ureters: Normal. No hydronephrosis. Stomach and bowel: Unremarkable. No obstruction. No mucosal thickening. Appendix: No evidence of appendicitis. Intraperitoneal space: Unremarkable. No free air. No significant fluid collection. Vasculature: Unremarkable. No abdominal aortic aneurysm. Lymph nodes: Unremarkable. No enlarged lymph nodes. Urinary bladder: An air bubble is noted in the lumen of the bladder. Reproductive: Unremarkable as visualized. Bones/joints: Unremarkable. No acute fracture. Soft tissues: Unremarkable. CT/CT chest [facility] w/*[id number] IMPRESSION: 1. Interval development of a 2 cm nodularity within the right lower lobe. I favor this to represent an inflammatory process but short-term follow-up imaging will be needed to confirm resolution. 2. Stable tiny right middle lobe lung nodule IMPRESSION: 1. There is no evidence of active neoplastic disease. 2. Stable left adrenal nodule 3. Intraluminal bladder air which could signify UTI.
[2025-02-11 12:12] LABS: Alanine Aminotransferase 12 U/L (0-33); Albumin Level 4.0 g/dL (3.5-5.2); Alkaline Phosphatase 80 U/L (35-105); Anion Gap 16.6 (5-19); Aspartate Amino Transferase 17 U/L (0-32); Blood Urea Nitrogen 6 mg/dL (8-23); Calcium 8.8 mg/dL (8.5-10.5); Carbon Dioxide 23 mmol/L (22-29); Chloride 106 mmol/L (98-107); Globulin 2.6 g/dL (1.3-4.6); Glucose 161 mg/dL (65-115); Osmolality Calculated 295 mOsm/kg (285-295); Potassium 3.6 mmol/L (3.5-5.1); Sodium 142 mmol/L (136-145); Total Protein 6.6 g/dL (6.6-8.7)
[2025-02-11] MEDS: iohexol 350 mg/mL 500 mL Btl (per mL) IV (12:24)
[2025-02-11] MEDS: iohexol 350 mg/mL 500 mL Btl (per mL) PO (12:50)
== END 2025-03-06 23:59 | disposition home or self-care (01) ==
PROVIDERS: PCP Family Medicine; Visit Provider Internal Medicine
DX: Z08 Encounter for follow-up examination after completed treatment for malignant neoplasm (principal); Z85.038 Personal history of other malignant neoplasm of large intestine; Z95.828 Presence of other vascular implants and grafts; Z90.49 Acquired absence of other specified parts of digestive tract; N28.89 Other specified disorders of kidney and ureter; Z86.19 Personal history of other infectious and parasitic diseases
CPT/HCPCS: 36591; 71260; 74177; 80053; 82378; 85025; 99214

== ENCOUNTER 2025-04-15 09:49 | Oncology outpatient (recurring) (ONCR) | payer MEDICARE, OTHER, SELFPAY ==
[2025-04-06 09:04] LABS: Hematocrit 43.7 % (36-47); Hemoglobin 14.30 g/dL (11.27-16.99); Mean Corpuscular HGB Conc 32.7 g/dL (30-55); Mean Corpuscular Hemoglobin 30.2 pg (27-33); Mean Corpuscular Volume 92.4 fl (85-98); Nucleated Red Blood Cells % 0 %; Platelet Count 168 10^3/cmm (157-399); Red Blood Count 4.73 10^6/uL (3.85-5.65); White Blood Count 6.50 10^3/uL (3.29-11.43)
--- NOTE | 2025-04-06 09:15 | CTR_ITS ---
PROCEDURE INFORMATION: Exam: CT Chest With Contrast; Diagnostic Exam date and time: 04/06/2025 9:25 AM Age: 80 years old Clinical indication: Abnormal findings; Abnormal radiologic exam of lung or chest; 6 week follow up abnormal CT chest, breast, colon, melanoma cancer; Additional info: 6 week followup for abnormal chest CT TECHNIQUE: Imaging protocol: Diagnostic computed tomography of the chest with contrast. Radiation optimization: All CT scans at this facility use at least one of these dose optimization techniques: automated exposure control; mA and/or kV adjustment per patient size (includes targeted exams where dose is matched to clinical indication); or iterative reconstruction. Contrast material: OMNIPAQUE 350; Contrast volume: 100 ml; Contrast route: INTRAVENOUS (IV); COMPARISON: 1. CT chest abdpel w/*[id number] 02/11/2025 12:[address] chest abdomen pelvis dated 02/05/2024 RADIATION DOSE METRICS: Total DLP (mGy-cm): 488.85 FINDINGS: Thyroid: Stable 2.5 cm right thyroid lobe nodule which requires no follow-up. Lungs: Similar appearance of a 6 mm right middle lobe nodule on image 34 of series 3. Dependent consolidative and reticular opacities in the lower lobes (images 21 and 36, series 3) could be related to atelectasis, perhaps slightly improved on the right and slightly worsened on the left in comparison to 02/11/2025 imaging. Pleural spaces: No pneumothorax. No pleural effusion. Heart: Cardiomegaly. No intracardiac metastasis identified. Lymph nodes: Within normal limits. Vasculature: Nonaneurysmal ascending thoracic aorta with systemic aortic and coronary artery plaque.Dilated main pulmonary artery which can be seen in the setting of pulmonary arterial hypertension.Aortic valve plane calcification. Right-sided Port-A-Cath is present with the tip in the SVC. Diaphragm: Small hiatal hernia. Bones/joints: Bridging anterior ossification in the spine. Soft tissues: Right axillary and chest postsurgical changes. CT/CT chest w con* [id number] IMPRESSION: Mildly waxing and waning dependent opacities could be related to atelectasis. No overtly suspicious lesion identified. Continued follow-up can ensure long-term stability.
[2025-04-06 09:25] LABS: Anion Gap 14.9 (5-19); Blood Urea Nitrogen 11 mg/dL (8-23); Calcium 9.0 mg/dL (8.5-10.5); Carbon Dioxide 26 mmol/L (22-29); Chloride 104 mmol/L (98-107); Glucose 155 mg/dL (65-115); Osmolality Calculated 295 mOsm/kg (285-295); Potassium 3.9 mmol/L (3.5-5.1); Sodium 141 mmol/L (136-145)
[2025-04-06] MEDS: iohexol 350 mg/mL 500 mL Btl (per mL) IV (09:38)
[2025-04-15 10:52] LABS: Glucose Urine UA Negative (Normal); Nitrate Urine Positive (Negative); Specific Gravity, Urine 1.008 (1.005-1.030)
[2025-04-15 10:54] LABS: Add Urine Microscopic? YES
== END 2025-05-06 23:59 | disposition home or self-care (01) ==
PROVIDERS: Internal Medicine Medical Oncology; Nurse Practitioner; PCP Family Medicine; Visit Provider Internal Medicine
DX: Z08 Encounter for follow-up examination after completed treatment for malignant neoplasm (principal); Z85.038 Personal history of other malignant neoplasm of large intestine; Z87.891 Personal history of nicotine dependence; N39.0 Urinary tract infection, site not specified; Z90.49 Acquired absence of other specified parts of digestive tract; Z95.828 Presence of other vascular implants and grafts; R91.1 Solitary pulmonary nodule; N28.89 Other specified disorders of kidney and ureter
CPT/HCPCS: 71260; 80048; 81001; 85025; 87077; 87086; 87186; 96523; 99213